=== PATIENT | female | born 1930 | race Caucasian/White ===

== ENCOUNTER 2017-03-14 09:31 | Inpatient (IN) | payer MEDICARE, BC ==
[2017-03-14] VITALS (8 sets, daily range): BP systolic 108–226; BP diastolic 60–104; PULSE 58–72; RESP 14–21; TEMP 97.9–98.1; O2SAT 96–98
[~2017-03-14] VITALS: Ht 157.5 cm; Wt 55.4 kg
--- NOTE | 2017-03-14 10:02 | PD ---
HPI Chief Complaint: Altered Mental Status Time Seen by Provider: 09:48 Travel History International Travel<30 days: No Contact w/Intl Traveler<30days: No Traveled to known affect area: No History of Present Illness HPI Patient is an 86-year-old female with history of atrial fibrillation, vascular disease, hypertension, presents to emergency room from assisted living facilities with complaints of altered mental status. As per assisted living facility, patient presented to the their facility last night, reports that she was alert and oriented x 3 at that time. Patient was found on the floor this morning, alert only to person. Patient at this time has no complaints, patient is alert only to person, she thinks that she is at a home and the year is 1716. Patient does not remember events of this morning, she cannot provide hpi to myself [facility] Past Medical History Narrative Medical Atrial fibrillation, vascular disease, hypertension Atrial Fibrillation: Yes Hypertension: Yes ?: Not Past Surgical History Surgical History: Unable to Obtain Social History Alcohol Use: No Tobacco Use: No Substance Use: No Allergies-Medications (Allergen,Severity, Reaction): Coded Allergies: Sulfa (Sulfonamide Antibiotics) (Verified Allergy, Unknown, 03/14/17) Reported Meds & Prescriptions Reported Meds & Active Scripts Active Reported Lisinopril 5 Mg Tab 5 Mg PO DAILY Zofran (Ondansetron HCl) 4 Mg Tab 4 Mg PO Q12HR PRN Zetia (Ezetimibe) 10 Mg Tab 10 Mg PO HS Tramadol (Tramadol HCl) 50 Mg Tab 50 Mg PO HS PRN Sucralfate 1 Gram Tab 1 Gm PO BID on empty stomach Sotalol (Sotalol HCl) 80 Mg Tab 80 Mg PO BID Simvastatin 80 Mg Tab 80 Mg PO HS Prilosec (Omeprazole Magnesium) 20 Mg Tab 40 Mg PO DAILY Plavix (Clopidogrel Bisulfate) 75 Mg Tab 75 Mg PO DAILY Melatonin 5 Mg Tab 3 Mg PO HS Levothyroxine (Levothyroxine Sodium) 50 Mcg Tab 50 Mcg PO BID Isosorbide Mononitrate 10 Mg Tab 10 Mg PO DAILY Take 2 doses 7 hours apart. Digoxin 0.125 Mg Tab 0.125 Mg PO DAILY Coumadin (Warfarin) 2.5 Mg Tab 2.5 Mg PO HS Review of Systems ROS Limitations: Altered Mental Status, Poor Historian, Other: (patient confused, alert only to person at this time) Physical Exam Exam Limitations: Altered Mental Status, Poor Historian Narrative GENERAL: Mild distress, patient pleasantly confused SKIN: Focused skin assessment warm/dry. HEAD: Atraumatic. Normocephalic. EYES: Pupils equal and round. No scleral icterus. No injection or drainage. ENT: No nasal bleeding or discharge. Mucous membranes pink and moist. NECK: Trachea midline. No JVD. No midline tenderness CARDIOVASCULAR: Regular rate and rhythm. No murmur appreciated. RESPIRATORY: No accessory muscle use. Clear to auscultation. Breath sounds equal bilaterally. GASTROINTESTINAL: Abdomen soft, non-tender, nondistended. Hepatic and splenic margins not palpable. MUSCULOSKELETAL: No obvious deformities. No clubbing. No cyanosis. No edema. NEUROLOGICAL: Awake and alert to person only. No obvious cranial nerve deficits. Motor grossly within normal limits. Normal speech. Data Data Last Documented VS Vital Signs Date Time Temp Pulse Resp B/P (MAP) Pulse Ox O2 Delivery O2 Flow Rate FiO2 03/14/17 09:47 Room Air 03/14/17 09:40 97.9 65 17 226/104 (144) 97 Orders Orders Electrocardiogram (03/14/17 09:54) Complete Blood Count With Diff (03/14/17 09:54) Comprehensive Metabolic Panel (03/14/17 09:54) Prothrombin Time / Inr (Pt) (03/14/17 09:54) Act Partial Throm Time (Ptt) (03/14/17 09:54) Troponin I (03/14/17 09:54) Urinalysis - C+S If Indicated (03/14/17 09:54) Chest, Single Ap (03/14/17 09:54) Ct Brain W/O Iv Contrast(Rout) (03/14/17 09:54) Blood Glucose (03/14/17 09:54) Ecg Monitoring (03/14/17 09:54) Iv Access Insert/Monitor (03/14/17 09:54) Cath For Specimen (03/14/17 09:54) Oximetry (03/14/17 09:54) B-Type Natriuretic Peptide (03/14/17 09:55) Urine Culture (03/14/17 10:20) Ckmb (Isoenzyme) Profile (03/14/17 10:05) Digoxin (03/14/17 10:05) Ceftriaxone Inj (Rocephin Inj) (03/14/17 12:00) Admit Order (Ed Use Only) (03/14/17 12:44) Labs Laboratory Tests Test 03/14/17 10:05 03/14/17 10:20 03/14/17 11:25 White Blood Count 6.8 TH/MM3 Red Blood Count 5.36 MIL/MM3 Hemoglobin 15.8 GM/DL Hematocrit 47.1 % Mean Corpuscular Volume 87.9 FL Mean Corpuscular Hemoglobin 29.5 PG Mean Corpuscular Hemoglobin Concent 33.6 % Red Cell Distribution Width 17.7 % Platelet Count 264 TH/MM3 Mean Platelet Volume 8.5 FL Neutrophils (%) (Auto) 60.5 % Lymphocytes (%) (Auto) 22.5 % Monocytes (%) (Auto) 14.1 % Eosinophils (%) (Auto) 1.6 % Basophils (%) (Auto) 1.3 % Neutrophils # (Auto) 4.1 TH/MM3 Lymphocytes # (Auto) 1.5 TH/MM3 Monocytes # (Auto) 1.0 TH/MM3 Eosinophils # (Auto) 0.1 TH/MM3 Basophils # (Auto) 0.1 TH/MM3 CBC Comment DIFF FINAL Differential Comment Prothrombin Time 32.5 SEC Prothromb Time International Ratio 2.8 RATIO Activated Partial Thromboplast Time 34.1 SEC B-Type Natriuretic Peptide 396 PG/ML Urine Color YELLOW Urine Turbidity HAZY Urine pH 5.5 Urine Specific [place] 1.016 Urine Protein 30 mg/dL Urine Glucose (UA) NEG mg/dL Urine Ketones TRACE mg/dL Urine Occult Blood SMALL Urine Nitrite NEG Urine Bilirubin NEG Urine Urobilinogen LESS THAN 2.0 MG/DL Urine Leukocyte Esterase LARGE Urine RBC 23 /hpf Urine WBC 91 /hpf Urine WBC Clumps FEW Urine Bacteria MANY /hpf Urine Hyaline Casts 1 /lpf Urine Mucus FEW /lpf Microscopic Urinalysis Comment CATH-CULTURE IND Blood Urea Nitrogen 24 MG/DL Creatinine 1.10 MG/DL Random Glucose 100 MG/DL Total Protein 7.1 GM/DL Albumin 3.4 GM/DL Calcium Level 10.5 MG/DL Alkaline Phosphatase 75 U/L Aspartate Amino Transf (AST/SGOT) 36 U/L Alanine Aminotransferase (ALT/SGPT) 20 U/L Total Bilirubin 1.3 MG/DL Sodium Level 141 MEQ/L Potassium Level 4.5 MEQ/L Chloride Level 108 MEQ/L Carbon Dioxide Level 23.7 MEQ/L Anion Gap 9 MEQ/L Estimat Glomerular Filtration Rate 47 ML/MIN Total Creatine Kinase 72 U/L Troponin I 0.08 NG/ML Digoxin Level 1.0 NG/ML MDM Medical Decision Making Medical Screen Exam Complete: Yes Emergency Medical Condition: Yes Medical Record Reviewed: Yes Interpretation(s) EKG at 1046: Paced at 64bpm Vital Signs Date Time Temp Pulse Resp B/P (MAP) Pulse Ox O2 Delivery O2 Flow Rate FiO2 03/14/17 09:47 Room Air 03/14/17 09:40 97.9 65 17 226/104 (144) 97 Differential Diagnosis Differential includes intracranial hemorrhage, CVA, TIA, ACS, arrhythmia, infection including UTI, electrolyte abnormality Narrative Course 86-year-old female who was found on the floor this morning by assisted living facility with altered mental status. Patient was alert and oriented 3 last night, patient currently alert only to person. Patient with no complaints at this time and has no recollection of this morning. Patient was placed on a school lunch monitor upon arrival to the emergency room. An IV line was established. CBC, CMP, cardiac enzymes, coags were ordered. A straight catheter urinalysis was ordered as well. CT of the head was ordered as patient was found on the floor, she currently is on Coumadin as she has history of atrial fibrillation. A digoxin level ordered as well. Patient's daughter is on route to the emergency room, will obtain more information upon her arrival Patient's family has arrived to the emergency room, reports the patient was acting a little altered last night, reports that every time this happens, she is diagnosed with a UTI. Reports concern for a uti at this time. Reports the patient was recently hospitalized as her INR was very low, she was then transferred to rehabilitation facility for strengthening, she is currently living in assisted living facility starting yesterday. Vital Signs Date Time Temp Pulse Resp B/P (MAP) Pulse Ox O2 Delivery O2 Flow Rate FiO2 03/14/17 09:47 Room Air 03/14/17 09:40 97.9 65 17 226/104 (144) 97 Laboratory Tests Test 03/14/17 10:05 03/14/17 10:20 03/14/17 11:25 White Blood Count 6.8 TH/MM3 (4.0-11.0) Red Blood Count 5.36 MIL/MM3 (4.00-5.30) Hemoglobin 15.8 GM/DL (11.6-15.3) Hematocrit 47.1 % (35.0-46.0) Mean Corpuscular Volume 87.9 FL (80.0-100.0) Mean Corpuscular Hemoglobin 29.5 PG (27.0-34.0) Mean Corpuscular Hemoglobin Concent 33.6 % (32.0-36.0) Red Cell Distribution Width 17.7 % (11.6-17.2) Platelet Count 264 TH/MM3 (150-450) Mean Platelet Volume 8.5 FL (7.0-11.0) Neutrophils (%) (Auto) 60.5 % (16.0-70.0) Lymphocytes (%) (Auto) 22.5 % (9.0-44.0) Monocytes (%) (Auto) 14.1 % (0.0-8.0) Eosinophils (%) (Auto) 1.6 % (0.0-4.0) Basophils (%) (Auto) 1.3 % (0.0-2.0) Neutrophils # (Auto) 4.1 TH/MM3 (1.8-7.7) Lymphocytes # (Auto) 1.5 TH/MM3 (1.0-4.8) Monocytes # (Auto) 1.0 TH/MM3 (0-0.9) Eosinophils # (Auto) 0.1 TH/MM3 (0-0.4) Basophils # (Auto) 0.1 TH/MM3 (0-0.2) CBC Comment DIFF FINAL Differential Comment Prothrombin Time 32.5 SEC (9.8-11.6) Prothromb Time International Ratio 2.8 RATIO Activated Partial Thromboplast Time 34.1 SEC (24.3-30.1) B-Type Natriuretic Peptide 396 PG/ML (0-100) Urine Color YELLOW (YELLW/STRAW) Urine Turbidity HAZY (CLEAR) Urine pH 5.5 (5.0-8.5) Urine Specific [place] 1.016 (1.002-1.035) Urine Protein 30 mg/dL (NEG-TRACE) Urine Glucose (UA) NEG mg/dL (NEG) Urine Ketones TRACE mg/dL (NEG) Urine Occult Blood SMALL (NEG) Urine Nitrite NEG (NEG) Urine Bilirubin NEG (NEG) Urine Urobilinogen LESS THAN 2.0 MG/DL (LESS Urine Leukocyte Esterase LARGE (NEG) Urine RBC 23 /hpf (0-3) Urine WBC 91 /hpf (0-5) Urine WBC Clumps FEW (NONE) Urine Bacteria MANY /hpf (NONE) Urine Hyaline Casts 1 /lpf (RARE) Urine Mucus FEW /lpf (OCC) Microscopic Urinalysis Comment CATH-CULTURE IND Blood Urea Nitrogen 24 MG/DL (7-18) Creatinine 1.10 MG/DL (0.50-1.00) Random Glucose 100 MG/DL (74-106) Albumin 3.4 GM/DL (3.4-5.0) Calcium Level 10.5 MG/DL (8.5-10.1) Aspartate Amino Transf (AST/SGOT) 36 U/L (15-37) Alanine Aminotransferase (ALT/SGPT) 20 U/L (10-53) Sodium Level 141 MEQ/L (136-145) Potassium Level 4.5 MEQ/L (3.5-5.1) Chloride Level 108 MEQ/L (98-107) Carbon Dioxide Level 23.7 MEQ/L (21.0-32.0) Anion Gap 9 MEQ/L (5-15) Estimat Glomerular Filtration Rate 47 ML/MIN (>89) Last Impressions Head CT 03/14/1723 Signed Impressions: Service Date/Time: February 10:23 - CONCLUSION: 1. No acute intracranial hemorrhage. 2. Bilateral cortical atrophy and chronic white matter changes characteristic for patient's age. Arturo Landeros MD Chest X-Ray 03/14/1702 Signed Impressions: Service Date/Time: February 10:07 - CONCLUSION: 1. No acute pulmonary infiltrates. 2. Moderate compensated cardiomegaly. Arturo Landeros MD Patient with encephalopathy secondary to UTI. Patient was given dose of IV Rocephin. Plan to obs on medicine service Case reviewed with Dr. Drake who accepts pt to his service Diagnosis Primary Impression: Encephalopathy Additional Impressions: UTI (urinary tract infection) Elevated troponin Admitting Information Admitting Physician Requests: Observation Alyse Mcgee DO Mar 14, 2017 10:02
--- NOTE | 2017-03-14 10:14 | RADRPT ---
EXAM DATE/TIME: 03/14/2017 10:07 [facility] COMPARISON: No previous studies available for comparison. INDICATIONS : Short of breath. MEDICAL HISTORY : Unobtainable. SURGICAL HISTORY : Pacemaker. ENCOUNTER: Initial ACUITY: 1 day PAIN SCORE: Non-responsive. LOCATION: Bilateral chest FINDINGS: A single view of the chest demonstrates the lungs to be symmetrically aerated without evidence of mas s, infiltrate or effusion. The heart size is moderately enlarged. There is a pacemaker overlying the left chest.. Osseous structures are intact. CONCLUSION: 1. No acute pulmonary infiltrates. 2. Moderate compensated cardiomegaly. Arturo Landeros MD on March 14, 2017 at 10:12 Board Certified Radiologist. This report was verified electronically.
[2017-03-14 10:44] LABS: AUTOMATED NEUTROPHIL # 4.1 TH/MM3 (1.8-7.7); BASOPHIL # 0.1 TH/MM3 (0-0.2); BASOPHIL % 1.3 % (0.0-2.0); EOSINOPHIL # 0.1 TH/MM3 (0-0.4); EOSINOPHIL % 1.6 % (0.0-4.0); HEMATOCRIT 47.1 % (35.0-46.0); HEMO FLAGS DIFF FINAL; LYMPH % 22.5 % (9.0-44.0); LYMPHOCYTE # 1.5 TH/MM3 (1.0-4.8); MEAN CELL VOLUME 87.9 FL (80.0-100.0); MEAN CORPUSCULAR HEMOGLOBIN 29.5 PG (27.0-34.0); MEAN CORPUSCULAR HGB CONC 33.6 % (32.0-36.0); MONO % 14.1 % (0.0-8.0); NEUT % 60.5 % (16.0-70.0); PLATELET COUNT 264 TH/MM3 (150-450); RED BLOOD COUNT 5.36 MIL/MM3 (4.00-5.30); RED CELL DISTRIBUTION WIDTH 17.7 % (11.6-17.2); WHITE BLOOD COUNT 6.8 TH/MM3 (4.0-11.0)
[2017-03-14 10:57] LABS: APTT (PATIENT) 34.1 SEC (24.3-30.1); INTERNATIONAL NORMALIZED RATIO 2.8 RATIO; PROTHROMBIN TIME - PATIENT 32.5 SEC (9.8-11.6)
--- NOTE | 2017-03-14 10:58 | RADRPT ---
EXAM DATE/TIME: 03/14/2017 10:23 [facility] COMPARISON: No previous studies available for comparison. INDICATIONS : Altered mental status, found on floor. RADIATION DOSE: 56.35 CTDIvol (mGy) MEDICAL HISTORY : Cardiovascular disease. Hypertension. SURGICAL HISTORY : None. ENCOUNTER: Initial ACUITY: 1 day PAIN SCALE: 1/10 LOCATION: cranial TECHNIQUE: Multiple contiguous axial images were obtained of the head. Using automated exposure control and adj ustment of the mA and/or kV according to patient size, radiation dose was kept as low as reasonably a chievable to obtain optimal diagnostic quality images. DICOM format image data is available electro nically for review and comparison. FINDINGS: CEREBRUM: The ventricles are normal for age. Bilateral cortical atrophy and chronic white matter changes. No e vidence of midline shift, mass lesion, hemorrhage or acute infarction. No extra-axial fluid collecti ons are seen. POSTERIOR FOSSA: The cerebellum and brainstem are intact. The 4th ventricle is midline. The cerebellopontine angle i s unremarkable. EXTRACRANIAL: The visualized portion of the orbits is intact. SKULL: The calvaria is intact. No evidence of skull fracture. CONCLUSION: 1. No acute intracranial hemorrhage. 2. Bilateral cortical atrophy and chronic white matter changes characteristic for patient's age. Arturo Landeros MD on March 14, 2017 at 10:55 Board Certified Radiologist. This report was verified electronically.
[2017-03-14 11:01] LABS: BACTERIA, URINE MANY /hpf; BLOOD, URINE SMALL (NEG); GLUCOSE,URINE NEG (NEG); HYALINE CAST, URINE 1 /lpf (RARE); KETONE, URINE TRACE mg/dL (NEG); MUCUS URINE FEW /lpf (OCC); NITRITE,URINE NEG (NEG); PH, URINE 5.5 (5.0-8.5); URINE COLOR YELLOW (YELLW/STRAW)
[2017-03-14 11:02] LABS: COMMENT (UR) CATH-CULTURE IND; CULTURE IF INDICATED CATH CULTURE IND
[2017-03-14] MEDS ORDERED: cefTRIAXone INJ 1,000 MG in SODIUM CHLORIDE 0.9% INJ 100 ML IV ONE (12:00)
[2017-03-14 12:31] LABS: ALT (GPT) 20 U/L (10-53); ANION GAP 9 MEQ/L (5-15); AST (GOT) 36 U/L (15-37); BICARBONATE 23.7 MEQ/L (21.0-32.0); BLOOD UREA NITROGEN 24 MG/DL (7-18); CHLORIDE 108 MEQ/L (98-107); GLOMERULAR FILTRATION RATE 47 ML/MIN (>89); POTASSIUM 4.5 MEQ/L (3.5-5.1); SODIUM (NA) 141 MEQ/L (136-145)
[2017-03-14 12:45] LABS: ALKALINE PHOSPHATASE 75 U/L (45-117); TOTAL BILIRUBIN ADULT 1.3 MG/DL (0.2-1.0)
[2017-03-14 12:51] LABS: CREATINE KINASE 72 U/L (26-192)
--- NOTE | 2017-03-14 12:53 | HHI.HP ---
[facility] Service [facility] Primary Care Physician Unknown Admission Diagnosis Metabolic encephopathy secondary to UTI Diagnoses: (1) Dehydration Diagnosis: Principal (2) Encephalopathy Diagnosis: Principal (3) UTI (urinary tract infection) Diagnosis: Principal Chief Complaint: altered mental status Travel History International Travel<30 Days: No Contact w/Intl Traveler <30 Da: No Traveled to Known Affected Are: No History of Present Illness patient is a 86 y/o female with history of atrial fibrillation, hypertension and vascular disease, who was sent to ER from assisted living facility for altered metal status. patient is not a good historian and most of the information was obtained from the ER documents. per the report she was fully oriented last night however reportedly she had a fall earlier today. she was oriented to person at the time. at the time of my evaluation she was resting comfortably with no distress. she denies any pain or headache.she says that she thinks she's in the doctor's office. she's not oriented to the time. Review of Systems ROS Limitations: Poor Historian Past Family Social History Past Medical History atrial fibrillation PVD hypertension dyslipidemia hypothyroidism Past Surgical History pacemaker insertion Reported Medications digoxin plavix digoxin zetia levothyroxine sotalol simvastatin sucralfate omeprazole imdur lisinopril Allergies: Coded Allergies: Sulfa (Sulfonamide Antibiotics) (Verified Allergy, Unknown, 03/14/17) Active Ordered Medications Current Medications Ceftriaxone Sodium 1000 mg/ Sodium Chloride 100 ml @ 200 mls/hr ONCE ONCE IV Last administered on 03/14/17t 12:14; Start 03/14/17 at 12:00; Stop 03/14/17 at 12:29; Status DC Family History could not be obtained. Social History [facility] resident. Physical Exam Vital Signs Vital Signs Date Time Temp Pulse Resp B/P (MAP) Pulse Ox O2 Delivery O2 Flow Rate FiO2 03/14/17 09:47 Room Air 03/14/17 09:40 97.9 65 17 226/104 (144) 97 Physical Exam GENERAL: elderly female, in no apparent distress. SKIN: No rashes, ecchymoses or lesions. Cool and dry. HEAD: Atraumatic. Normocephalic. No temporal or scalp tenderness. EYES: Pupils equal round and reactive. Extraocular motions intact. No scleral icterus. No injection or drainage. ENT: Nose without bleeding, purulent drainage or septal hematoma. Throat without erythema, tonsillar hypertrophy or exudate. Uvula midline. Airway patent. NECK: Trachea midline. No JVD or lymphadenopathy. Supple, nontender, no meningeal signs. CARDIOVASCULAR: Regular rate and rhythm without murmurs, gallops, or rubs. RESPIRATORY: Clear to auscultation. Breath sounds equal bilaterally. No wheezes , rales, or rhonchi. GASTROINTESTINAL: Abdomen soft, non-tender, nondistended. No hepato-splenomegaly , or palpable masses. No guarding. MUSCULOSKELETAL: Extremities without clubbing, cyanosis, or edema. No joint tenderness, effusion, or edema noted. No calf tenderness. Negative Homans sign bilaterally. NEUROLOGICAL: Awake and alert. oriented to person - not oriented to place or time. Laboratory Laboratory Tests Test 03/14/17 10:05 03/14/17 10:20 03/14/17 11:25 White Blood Count 6.8 Red Blood Count 5.36 Hemoglobin 15.8 Hematocrit 47.1 Mean Corpuscular Volume 87.9 Mean Corpuscular Hemoglobin 29.5 Mean Corpuscular Hemoglobin Concent 33.6 Red Cell Distribution Width 17.7 Platelet Count 264 Mean Platelet Volume 8.5 Neutrophils (%) (Auto) 60.5 Lymphocytes (%) (Auto) 22.5 Monocytes (%) (Auto) 14.1 Eosinophils (%) (Auto) 1.6 Basophils (%) (Auto) 1.3 Neutrophils # (Auto) 4.1 Lymphocytes # (Auto) 1.5 Monocytes # (Auto) 1.0 Eosinophils # (Auto) 0.1 Basophils # (Auto) 0.1 CBC Comment DIFF FINAL Differential Comment Prothrombin Time 32.5 Prothromb Time International Ratio 2.8 Activated Partial Thromboplast Time 34.1 B-Type Natriuretic Peptide 396 Urine Color YELLOW Urine Turbidity HAZY Urine pH 5.5 Urine Specific [place] 1.016 Urine Protein 30 Urine Glucose (UA) NEG Urine Ketones TRACE Urine Occult Blood SMALL Urine Nitrite NEG Urine Bilirubin NEG Urine Urobilinogen LESS THAN 2.0 Urine Leukocyte Esterase LARGE Urine RBC 23 Urine WBC 91 Urine WBC Clumps FEW Urine Bacteria MANY Urine Hyaline Casts 1 Urine Mucus FEW Microscopic Urinalysis Comment CATH-CULTURE IND Blood Urea Nitrogen 24 Creatinine 1.10 Random Glucose 100 Albumin 3.4 Calcium Level 10.5 Aspartate Amino Transf (AST/SGOT) 36 Alanine Aminotransferase (ALT/SGPT) 20 Sodium Level 141 Potassium Level 4.5 Chloride Level 108 Carbon Dioxide Level 23.7 Anion Gap 9 Estimat Glomerular Filtration Rate 47 Date/Time Source Procedure Growth Status 03/14/17 10:20 Urine Catheterized Urine Urine Culture Pending Received Result Diagram: 03/14/17 1005 03/14/17 1005 Imaging Last Impressions Head CT 03/14/17 0954 Signed Impressions: Service Date/Time: February 10:23 - CONCLUSION: 1. No acute intracranial hemorrhage. 2. Bilateral cortical atrophy and chronic white matter changes characteristic for patient's age. Arturo Landeros MD Chest X-Ray 03/14/17953 Signed Impressions: Service Date/Time: February 10:07 - CONCLUSION: 1. No acute pulmonary infiltrates. 2. Moderate compensated cardiomegaly. Arturo Landeros MD EKG; pacer rhythm Caprini VTE Risk Assessment Caprini VTE Risk Assessment: Mod/High Risk (score >= 2) Caprini Risk Assessment Model Point Value = 1 Point Value = 2 Point Value = 3 Point Value = 5 Age 41-60 Minor surgery BMI > 25 kg/m2 Swollen legs Varicose veins or History of unexplained or recurrent spontaneous Oral contraceptives or hormone replacement Sepsis (< 1 month) Serious lung disease, including pneumonia (< 1 month) Abnormal pulmonary function Acute myocardial infarction Congestive heart failure (< 1 month) History of inflammatory bowel disease Medical patient at bed rest Age 61-74 Arthroscopic surgery Major open surgery (> 45 min) Laparoscopic surgery (> 45 min) Malignancy Confined to bed (> 72 hours) Immobilizing plaster cast Central venous access Age >= 75 History of VTE Family history of VTE Factor V Leiden Prothrombin 43332A Lupus anticoagulant Anticardiolipin antibodies Elevated serum homocysteine Heparin-induced thrombocytopenia Other congenital or acquired thrombophilia Stroke (< 1 month) Elective arthroplasty Hip, pelvis, or leg fracture Acute spinal cord injury (< 1 month) Prophylaxis Regimen Total Risk Factor Score Risk Level Prophylaxis Regimen 0-1 Low Early ambulation 2 Moderate Order ONE of the following: *Sequential Compression Device (SCD) *Heparin 5000 units SQ BID 3-4 Higher Order ONE of the following medications: *Heparin 5000 units SQ TID *Enoxaparin/Lovenox 40 mg SQ daily (WT < 150 kg, CrCl > 30 mL/min) *Enoxaparin/Lovenox 30 mg SQ daily (WT < 150 kg, CrCl > 10-29 mL/min) *Enoxaparin/Lovenox 30 mg SQ BID (WT < 150 kg, CrCl > 30 mL/min) AND/OR *Sequential Compression Device (SCD) 5 or more Highest Order ONE of the following medications: *Heparin 5000 units SQ TID (Preferred with Epidurals) *Enoxaparin/Lovenox 40 mg SQ daily (WT < 150 kg, CrCl > 30 mL/min) *Enoxaparin/Lovenox 30 mg SQ daily (WT < 150 kg, CrCl > 10-29 mL/min) *Enoxaparin/Lovenox 30 mg SQ BID (WT < 150 kg, CrCl > 30 mL/min) AND *Sequential Compression Device (SCD) Assessment and Plan Assessment and Plan A/P - acute encephalopathy- likely due to UTI and dehydration CT head with no acute abnormality. continue with neuro-checks and fall precautions- start on IV antibiotic and follow the UC start on gentle IV hydration- continue to monitor -dehydration / with mild hypercalcemia and polycythemia; start on IV fluid- repeat BMP in am -mild elevation of troponin- likely due to fall/ renal insufficiency and elevated BP; denies chest pain; will trend the cardiac enzymes resume home meds; lisinopril, plavix , nitrate and statin. -renal insufficiency with unknown duration- start IV fluid and monitor -atrial fibrillation -s/p pacemaker insertion; resume Sotalol, Digoxin and couamdin-will monitor -dyslipidemia/PVD/ hypertension/ hypothyroidism; resume home meds -DVT prophylaxis ; on Coumadin; will monitor PT/INR- pharmacy will be consulted for coumadin dosing. -consult PT Discussed Condition With ER physician, the patient and RN. Problem Qualifiers (1) UTI (urinary tract infection): Gold Chino MD Mar 14, 2017 12:53
[2017-03-14] MEDS ORDERED: PRIL20TA2 PO (13:07)
[2017-03-14] MEDS ORDERED: SOTA80TA PO (13:07)
[2017-03-14] MEDS ORDERED: DIGO0.12 PO (13:07)
[2017-03-14] MEDS ORDERED: SIMV80TA PO (13:07)
[2017-03-14] MEDS ORDERED: ZOFR4TAB PO (13:07)
[2017-03-14] MEDS ORDERED: ZETI10TA5 PO (13:07)
[2017-03-14] MEDS ORDERED: TRAM50TA PO (13:07)
[2017-03-14] MEDS ORDERED: COUM2.5T PO (13:07)
[2017-03-14] MEDS ORDERED: PLAV75TA29 PO (13:07)
[2017-03-14] MEDS ORDERED: SUCR1TAB PO (13:07)
[2017-03-14] MEDS ORDERED: ISOS10TA3 PO (13:07)
[2017-03-14] MEDS ORDERED: LEVO50TA4 PO (13:07)
[2017-03-14] MEDS ORDERED: LISI-519 PO (13:07)
[2017-03-14] MEDS ORDERED: MELA5TAB15 PO (13:07)
[2017-03-14] MEDS ORDERED: ONDANSETRON HCL 4 MG/2 ML VIAL IV PUSH PRN (13:15)
[2017-03-14] MEDS ORDERED: SODIUM CHLOR 0.9% 1000 ML INJ 1,000 ML IV ONE (13:15)
[2017-03-14] MEDS ORDERED: ACETAMINOPHEN 325 MG TAB PO PRN (13:15)
[2017-03-14] MEDS ORDERED: ENALAPRILAT 1.25 MG/ML VIAL IV PUSH PRN (14:15)
[2017-03-14] MEDS ORDERED: PILL SPLITTER OTHER PRN (15:15)
[2017-03-14] MEDS: LISINOPRIL 5 MG TAB PO SCH (17:11)
[2017-03-14] MEDS ORDERED: WARFARIN SOD 2.5 MG TAB PO SCH (21:00)
[2017-03-14] MEDS: PRAVASTATIN SOD 80 MG TAB PO SCH (21:37)
[2017-03-14] MEDS: EZETIMIBE 10 MG TAB PO SCH (21:37)
[2017-03-14] MEDS: SOTALOL HCL 80 MG TAB PO SCH (21:37)
[2017-03-14] MEDS: SUCRALFATE 1 GM TAB PO SCH (21:37)
[2017-03-15] VITALS (7 sets, daily range): BP systolic 94–160; BP diastolic 60–89; PULSE 60–79; RESP 16–20; TEMP 97.5–98.1; O2SAT 94–97
[2017-03-15] MEDS: LEVOTHYROXINE SODIUM 50 MCG TAB PO SCH ×2 (05:34→16:40)
[2017-03-15 08:06] LABS: AUTOMATED NEUTROPHIL # 3.8 TH/MM3 (1.8-7.7); BASOPHIL # 0.1 TH/MM3 (0-0.2); BASOPHIL % 1.3 % (0.0-2.0); EOSINOPHIL # 0.1 TH/MM3 (0-0.4); EOSINOPHIL % 2.4 % (0.0-4.0); HEMATOCRIT 44.3 % (35.0-46.0); HEMO FLAGS DIFF FINAL; LYMPH % 19.1 % (9.0-44.0); LYMPHOCYTE # 1.2 TH/MM3 (1.0-4.8); MEAN CELL VOLUME 87.4 FL (80.0-100.0); MEAN CORPUSCULAR HEMOGLOBIN 29.3 PG (27.0-34.0); MEAN CORPUSCULAR HGB CONC 33.5 % (32.0-36.0); MONO % 16.2 % (0.0-8.0); PLATELET COUNT 237 TH/MM3 (150-450); RED BLOOD COUNT 5.07 MIL/MM3 (4.00-5.30); RED CELL DISTRIBUTION WIDTH 17.4 % (11.6-17.2); WHITE BLOOD COUNT 6.3 TH/MM3 (4.0-11.0)
[2017-03-15 08:12] LABS: INTERNATIONAL NORMALIZED RATIO 2.9 RATIO; PROTHROMBIN TIME - PATIENT 33.6 SEC (9.8-11.6)
[2017-03-15 08:21] LABS: BICARBONATE 24.4 MEQ/L (21.0-32.0); POTASSIUM 3.6 MEQ/L (3.5-5.1)
[2017-03-15] MEDS ORDERED: LISINOPRIL 5 MG TAB PO SCH (09:00)
[2017-03-15] MEDS: SUCRALFATE 1 GM TAB PO SCH ×2 (09:20→21:28)
[2017-03-15] MEDS: PANTOPRAZOLE SOD 40 MG DELAYED RELEASE TAB PO SCH (09:20)
[2017-03-15] MEDS: LISINOPRIL 5 MG TAB PO SCH (09:20)
[2017-03-15] MEDS: CLOPIDOGREL 75 MG TAB PO SCH (09:20)
[2017-03-15] MEDS: SOTALOL HCL 80 MG TAB PO SCH ×2 (09:21→21:28)
[2017-03-15] MEDS: ISOSORBIDE MONONITRATE 20 MG TAB PO SCH (09:21)
[2017-03-15] MEDS: DIGOXIN 0.125 MG TAB PO SCH (09:21)
--- NOTE | 2017-03-15 09:47 | HHI.PR ---
Subjective Remarks in no acute distress. awake, alert- mental status has somewhat improved- however still not fully oriented. remains afebrile. d/w the RN and case management at the bedside. Objective Vitals Vital Signs Date Time Temp Pulse Resp B/P (MAP) Pulse Ox O2 Delivery O2 Flow Rate FiO2 03/15/17 08:00 97.5 73 18 130/67 (88) 97 03/15/17 04:00 97.5 64 17 114/79 (91) 97 03/15/17 00:00 97.5 79 18 160/89 (112) 96 03/14/17 20:24 98.1 58 16 108/60 (76) 98 03/14/17 18:17 72 135/63 (87) 03/14/17 17:34 180/90 (120) 03/14/17 17:01 98.1 69 20 200/98 (132) 97 03/14/17 16:21 03/14/17 15:35 71 17 177/85 (115) 96 Room Air 03/14/17 15:16 71 21 177/84 (115) 96 Room Air 03/14/17 13:54 69 14 188/97 (127) 98 Room Air 03/14/17 09:47 Room Air I/O 03/14/17 03/14/17 03/14/17 03/15/17 03/15/17 03/15/17 07:00 15:00 23:00 07:00 15:00 23:00 Intake Total 100 ml 200 ml Balance 100 ml 200 ml Intake Oral 200 ml IV Total 100 ml Result Diagram: 03/15/1761803/15/17618 Imaging Last Impressions Head CT 03/14/17953 Signed Impressions: Service Date/Time: February 10:23 - CONCLUSION: 1. No acute intracranial hemorrhage. 2. Bilateral cortical atrophy and chronic white matter changes characteristic for patient's age. Arturo Landeros MD Chest X-Ray 03/14/17953 Signed Impressions: Service Date/Time: February 10:07 - CONCLUSION: 1. No acute pulmonary infiltrates. 2. Moderate compensated cardiomegaly. Arturo Landeros MD Objective Remarks GENERAL:elderly female, in no apparent distress. CARDIOVASCULAR: Regular rate and regular rhythm without murmurs, gallops, or rubs. RESPIRATORY: Clear to auscultation. Breath sounds equal bilaterally. No wheezes , rales, or rhonchi. GASTROINTESTINAL: Abdomen soft, non-tender, nondistended. Normal, active bowel sounds MUSCULOSKELETAL: Extremities without clubbing, cyanosis, or edema. NEURO: awake and alert- oriented to person,knows that she's in the hospital- not oriented to the time. Medications and IVs Current Medications Ceftriaxone Sodium 1000 mg/ Sodium Chloride 100 ml @ 200 mls/hr ONCE ONCE IV Last administered on 03/14/17 12:14; Start 03/14/17 at 12:00; Stop 03/14/17 at 12:29; Status DC Pharmacy Profile Note 0 ml @ 0 mls/hr UNSCH OTHER ; Start 03/14/17 at 13:15 Ceftriaxone Sodium 1000 mg/ Sodium Chloride 100 ml @ 200 mls/hr Q24H IV ; Start 03/15/17 at 12:00 Ondansetron HCl (Zofran Inj) 4 mg Q8HR PRN IV PUSH NAUSEA; Start 03/14/17 at 13:15 Acetaminophen (Tylenol) 650 mg Q4H PRN PO FEVER/PAIN/ HEADACHE; Start at 13:15 Sodium Chloride 1,000 ml @ 60 mls/hr [id number] ONCE IV ; Start 03/14/17 at 13:15 ; Stop 03/15/17 at 05:54; Status DC Clopidogrel Bisulfate (Plavix) 75 mg DAILY PO Last administered on 03/15/17 09:20; Start 03/15/17 at 09:00 Digoxin (Lanoxin) 0.125 mg DAILY PO Last administered on 03/15/17 09:21; Start 03/15/17 at 09:00 EZETIMIBE (Zetia) 10 mg HS PO Last administered on 03/14/17 21:37; Start at 21:00 Isosorbide Mononitrate (Ismo) 10 mg DAILY PO Last administered on 03/15/17 09 :21; Start 03/15/17 at 09:00 Levothyroxine Sodium (Synthroid) 50 mcg BIDAC PO Last administered on 05:34; Start 03/15/17 at 07:00 Lisinopril (Prinivil) 5 mg DAILY PO ; Start 03/15/17 at 09:00; Stop 03/15/17 at 09:00; Status DC Sotalol HCl (Betapace) 80 mg BID PO Last administered on 03/15/17 09:21; Start 03/14/17 at 21:00 Sucralfate (Carafate) 1 gm BID PO Last administered on 03/15/17 09:20; Start 03/14/17 at 21:00 Warfarin Sodium (Coumadin) 2.5 mg HS PO Last administered on 03/14/17 21:37; Start 03/14/17 at 21:00 Pantoprazole Sodium (Protonix) 40 mg DAILY PO Last administered on 03/15/17 09:20; Start 03/15/17 at 09:00 Pravastatin Sodium (Pravachol) 80 mg HS PO Last administered on 03/14/17 21: 37; Start 03/14/17 at 21:00 Lisinopril (Prinivil) 5 mg DAILY PO Last administered on 03/15/17 09:20; Start 03/14/17 at 14:15 Enalaprilat (Vasotec Inj) 1.25 mg Q8H PRN IV PUSH SBP> OR = 180, DBP> OR = 100 Last administered on 03/14/17 15:15; Start 03/14/17 at 14:15 Miscellaneous (Pill Splitter) 1 ea UNSCH PRN OTHER SEE LABEL COMMENTS; Start 03/14/17 at 15:15 Patient Medication Teaching (Coumadin Booklet) 1 ONCE ONCE .XX Last administered on 03/14/17 21:38; Start 03/14/17 at 21:00; Stop 03/14/17 at 21 :01; Status DC A/P Problem List: (1) Dehydration ICD Code: E86.0 - Dehydration (2) Encephalopathy ICD Code: G93.40 - Encephalopathy, unspecified Status: Acute (3) UTI (urinary tract infection) ICD Code: N39.0 - Urinary tract infection, site not specified Status: Acute Assessment and Plan A/P - acute encephalopathy- likely due to UTI and dehydration CT head with no acute abnormality. continue with neuro-checks and fall precautions- continue IV antibiotic and follow the UC continue IV hydration- continue to monitor -dehydration / with mild hypercalcemia and polycythemia; started on IV fluid- repeat BMP in am -mild elevation of troponin- likely due to fall/ renal insufficiency and elevated BP; denies chest pain; trend stable. resumed home meds; lisinopril, plavix , nitrate and statin. -renal insufficiency with unknown duration- continue IV fluid and monitor -atrial fibrillation -s/p pacemaker insertion; resumed Sotalol, Digoxin and couamdin-will monitor -dyslipidemia/PVD/ hypertension/ hypothyroidism; resumed home meds -DVT prophylaxis ; on Coumadin; will monitor PT/INR- pharmacy consulted for coumadin dosing. -consulted PT Discharge Planning dc planning within the next 24-48 hrs- pending clinical course, UC and PT assessment. Problem Qualifiers (1) UTI (urinary tract infection): Gold Chino MD Mar 15, 2017 09:47
[2017-03-15] MEDS ORDERED: SODIUM CHLOR 0.9% 1000 ML INJ 1,000 ML IV ONE (10:00)
[2017-03-15] MEDS: cefTRIAXone INJ 1,000 MG in SODIUM CHLORIDE 0.9% INJ 100 ML IV SCH (11:02)
[2017-03-15] MEDS: EZETIMIBE 10 MG TAB PO SCH (21:28)
[2017-03-15] MEDS: PRAVASTATIN SOD 80 MG TAB PO SCH (21:28)
--- NOTE | 2017-03-15 22:02 | EKG ---
Date Performed: 03/14/2017 Time Performed: 16:07:02 PTAGE: 86 years EKG: ATRIAL FIBRILLATION ELECTRONIC VENTRICULAR PACEMAKER INCOMPLETE RIGHT BUNDLE BRANCH BLOCK ABNORMAL ECG NO PREVIOUS TRACING DOCTOR: Handy Johnson Interpretating Date/Time 03/15/2017 21:36:30
--- NOTE | 2017-03-15 22:03 | EKG ---
Date Performed: 03/14/2017 Time Performed: 10:46:40 PTAGE: 86 years EKG: ATRIAL FIBRILLATION ELECTRONIC VENTRICULAR PACEMAKER ABNORMAL RHYTHM ECG NO PREVIOUS TRACING DOCTOR: Handy Johnson Interpretating Date/Time 03/15/2017 21:44:24
[2017-03-16 05:30] VITALS: BP 106/68; PULSE 78; RESP 18; TEMP 98; O2SAT 97
[2017-03-16 05:56] LABS: BICARBONATE 22.2 MEQ/L (21.0-32.0); POTASSIUM 3.4 MEQ/L (3.5-5.1)
[2017-03-16 06:01] LABS: INTERNATIONAL NORMALIZED RATIO 2.5 RATIO; PROTHROMBIN TIME - PATIENT 28.5 SEC (9.8-11.6)
[2017-03-16] MEDS: LEVOTHYROXINE SODIUM 50 MCG TAB PO SCH ×2 (06:26→16:29)
[2017-03-16 07:59] VITALS: BP 135/74; PULSE 64; RESP 22; TEMP 97.6; O2SAT 97
[2017-03-16] MEDS: LISINOPRIL 5 MG TAB PO SCH (10:15)
[2017-03-16] MEDS: ISOSORBIDE MONONITRATE 20 MG TAB PO SCH (10:19)
[2017-03-16] MEDS: SUCRALFATE 1 GM TAB PO SCH ×2 (10:19→22:00)
[2017-03-16] MEDS: PANTOPRAZOLE SOD 40 MG DELAYED RELEASE TAB PO SCH (10:20)
[2017-03-16] MEDS: SOTALOL HCL 80 MG TAB PO SCH ×2 (10:20→22:00)
[2017-03-16] MEDS: CLOPIDOGREL 75 MG TAB PO SCH (10:20)
[2017-03-16] MEDS: DIGOXIN 0.125 MG TAB PO SCH (10:31)
[2017-03-16 11:29] VITALS: BP 121/80; PULSE 61; RESP 22; TEMP 97.5; O2SAT 96
--- NOTE | 2017-03-16 12:33 | HHI.PR ---
Subjective Remarks in no acute distress. denies pain. afebrile. still confused. d/w the RN. Objective Vitals Vital Signs Date Time Temp Pulse Resp B/P (MAP) Pulse Ox O2 Delivery O2 Flow Rate FiO2 03/16/17 11:29 97.5 61 22 121/80 (94) 96 03/16/17 07:59 97.6 64 22 135/74 (94) 97 03/16/17 05:30 98.0 78 18 106/68 (81) 97 03/15/17 23:56 97.9 60 18 111/69 (83) 95 03/15/17 21:32 98.1 60 20 121/76 (91) 97 03/15/17 16:00 97.5 71 16 94/62 (73) 95 I/O 03/15/17 03/15/17 03/15/17 03/16/17 03/16/17 03/16/17 07:00 15:00 23:00 07:00 15:00 23:00 Intake Total 200 ml Balance 200 ml Intake Oral 200 ml # Voids 1 Result Diagram: 03/15/17 0619 03/16/17 0455 Imaging Last Impressions Head CT 03/14/17 0954 Signed Impressions: Service Date/Time: February 10:23 - CONCLUSION: 1. No acute intracranial hemorrhage. 2. Bilateral cortical atrophy and chronic white matter changes characteristic for patient's age. Arturo Landeros MD Chest X-Ray 03/14/17 0981 Signed Impressions: Service Date/Time: February 10:07 - CONCLUSION: 1. No acute pulmonary infiltrates. 2. Moderate compensated cardiomegaly. Arturo Landeros MD Objective Remarks GENERAL:elderly female, in no apparent distress. CARDIOVASCULAR: Regular rate and regular rhythm without murmurs, gallops, or rubs. RESPIRATORY: Clear to auscultation. Breath sounds equal bilaterally. No wheezes , rales, or rhonchi. GASTROINTESTINAL: Abdomen soft, non-tender, nondistended. Normal, active bowel sounds MUSCULOSKELETAL: Extremities without clubbing, cyanosis, or edema. NEURO: awake and alert- oriented to person,knows that she's in the hospital- not oriented to the time. Medications and IVs Current Medications Ceftriaxone Sodium 1000 mg/ Sodium Chloride 100 ml @ 200 mls/hr ONCE ONCE IV Last administered on 03/14/17 12:14; Start 03/14/17 at 12:00; Stop 03/14/17 at 12:29; Status DC Pharmacy Profile Note 0 ml @ 0 mls/hr UNSCH OTHER ; Start 03/14/17 at 13:15 Ceftriaxone Sodium 1000 mg/ Sodium Chloride 100 ml @ 200 mls/hr Q24H IV Last administered on 03/15/17 11:02; Start 03/15/17 at 12:00 Ondansetron HCl (Zofran Inj) 4 mg Q8HR PRN IV PUSH NAUSEA; Start 03/14/17 at 13:15 Acetaminophen (Tylenol) 650 mg Q4H PRN PO FEVER/PAIN/ HEADACHE; Start at 13:15 Sodium Chloride 1,000 ml @ 60 mls/hr [id number] ONCE IV ; Start 03/14/17 at 13:15 ; Stop 03/15/17 at 05:54; Status DC Clopidogrel Bisulfate (Plavix) 75 mg DAILY PO Last administered on 03/16/17 10:20; Start 03/15/17 at 09:00 Digoxin (Lanoxin) 0.125 mg DAILY PO Last administered on 03/16/17 10:31; Start 03/15/17 at 09:00 EZETIMIBE (Zetia) 10 mg HS PO Last administered on 03/15/17 21:28; Start at 21:00 Isosorbide Mononitrate (Ismo) 10 mg DAILY PO Last administered on 03/16/17 10 :19; Start 03/15/17 at 09:00 Levothyroxine Sodium (Synthroid) 50 mcg BIDAC PO Last administered on 06:26; Start 03/15/17 at 07:00 Lisinopril (Prinivil) 5 mg DAILY PO ; Start 03/15/17 at 09:00; Stop 03/15/17 at 09:00; Status DC Sotalol HCl (Betapace) 80 mg BID PO Last administered on 03/16/17 10:20; Start 03/14/17 at 21:00 Sucralfate (Carafate) 1 gm BID PO Last administered on 03/16/17 10:19; Start 03/14/17 at 21:00 Warfarin Sodium (Coumadin) 2.5 mg HS PO Last administered on 03/14/17 21:37; Start 03/14/17 at 21:00; Stop 03/16/17 at 10:26; Status DC Pantoprazole Sodium (Protonix) 40 mg DAILY PO Last administered on 03/16/17 10:20; Start 03/15/17 at 09:00 Pravastatin Sodium (Pravachol) 80 mg HS PO Last administered on 03/15/17 21: 28; Start 03/14/17 at 21:00 Lisinopril (Prinivil) 5 mg DAILY PO Last administered on 03/16/17 10:15; Start 03/14/17 at 14:15 Enalaprilat (Vasotec Inj) 1.25 mg Q8H PRN IV PUSH SBP> OR = 180, DBP> OR = 100 Last administered on 03/14/17 15:15; Start 03/14/17 at 14:15 Miscellaneous (Pill Splitter) 1 ea UNSCH PRN OTHER SEE LABEL COMMENTS; Start 03/14/17 at 15:15 Patient Medication Teaching (Coumadin Booklet) 1 ONCE ONCE .XX Last administered on 03/14/17 21:38; Start 03/14/17 at 21:00; Stop 03/14/17 at 21 :01; Status DC Sodium Chloride 1,000 ml @ 60 mls/hr [id number] ONCE IV Last administered on 11:03; Start 03/15/17 at 10:00; Stop 03/16/17 at 02:39; Status DC Warfarin Sodium (Coumadin) 2 mg DAILY@1600 PO ; Start 03/16/17 at 16:00 A/P Problem List: (1) Dehydration ICD Code: E86.0 - Dehydration (2) Encephalopathy ICD Code: G93.40 - Encephalopathy, unspecified Status: Acute (3) UTI (urinary tract infection) ICD Code: N39.0 - Urinary tract infection, site not specified Status: Acute Assessment and Plan A/P - acute encephalopathy- likely due to UTI and dehydration CT head with no acute abnormality. continue with neuro-checks and fall precautions- continue IV antibiotic and follow the UC continue to monitor -dehydration / with mild hypercalcemia and polycythemia; received IV fluid- improved. -mild elevation of troponin- likely due to fall/ renal insufficiency and elevated BP; denies chest pain; trend stable. resumed home meds; lisinopril, plavix , nitrate and statin. -renal insufficiency with unknown duration- continue IV fluid and monitor -atrial fibrillation -s/p pacemaker insertion; resumed Sotalol, Digoxin and couamdin-will monitor -dyslipidemia/PVD/ hypertension/ hypothyroidism; resumed home meds -DVT prophylaxis ; on Coumadin; will monitor PT/INR- pharmacy consulted for coumadin dosing. -consulted PT Discharge Planning PT recommendations noted. d/w the daughter ( ; [phone]) ; patient was in [facility] prior to this admission; might need higher level of care- SNF was d/w the case management and the patient 's daughter. not ready for discharge today. Problem Qualifiers (1) UTI (urinary tract infection): Gold Chino MD Mar 16, 2017 12:33
[2017-03-16] MEDS: cefTRIAXone INJ 1,000 MG in SODIUM CHLORIDE 0.9% INJ 100 ML IV SCH (12:37)
[2017-03-16] MEDS ORDERED: PIPERACIL-TAZO 3.375 GM PREMIX 50 ML IV SCH (14:00)
[2017-03-16 15:53] VITALS: BP 113/62; PULSE 60; RESP 20; TEMP 97.2; O2SAT 97
[2017-03-16] MEDS ORDERED: WARFARIN SOD 2 MG TAB PO SCH (16:00)
--- NOTE | 2017-03-16 18:14 | PD.CONS ---
History of Present Illness Service Infectious disease Consult Requested By Dr Chino Reason for Consult Evaluate patient with UTI, ESBL positive Primary Care Physician Unknown Diagnoses: History of Present Illness Patient seen and examined. Records reviewed. Patient is a very poor historian. Patient is an 86-year-old female brought into the hospital for further evaluation of altered mental status. She was apparently very confused. She had a fall the day of admission. There was no mention of any fever chills or sweats. She has not been having any respiratory complaint. When I asked her if she has any pain when she urinates she said she had it earlier but non- currently. She there's been no mention of any nausea vomiting or any diarrhea. Denies any abdominal pain. On evaluation, patient has not been febrile. Her WBC is normal. Her urinalysis did show evidence of pyuria. Urine culture is now reported as growing Escherichia coli ESBL positive. Patient does not have any Waters catheter in place. Infectious Disease consultation has been requested to assist with antibiotic management. Review of Systems ROS Limitations: Poor Historian Genitourinary: COMPLAINS OF: Dysuria Past Family Social History Allergies: Coded Allergies: Sulfa (Sulfonamide Antibiotics) (Verified Allergy, Unknown, 03/14/17) Uncoded Allergies: cranberries (Allergy, Mild, 03/14/17) cant eat due to a medication she takes Past Medical History atrial fibrillation PVD hypertension dyslipidemia hypothyroidism Past Surgical History pacemaker insertion Reported Medications I attest that I obtained, updated or reviewed the home and current medications. Reported Meds & Active Scripts Active Reported Lisinopril 5 Mg Tab 5 Mg PO DAILY Zofran (Ondansetron HCl) 4 Mg Tab 4 Mg PO Q12HR PRN Zetia (Ezetimibe) 10 Mg Tab 10 Mg PO HS Tramadol (Tramadol HCl) 50 Mg Tab 50 Mg PO HS PRN Sucralfate 1 Gram Tab 1 Gm PO BID on empty stomach Sotalol (Sotalol HCl) 80 Mg Tab 80 Mg PO BID Simvastatin 80 Mg Tab 80 Mg PO HS Prilosec (Omeprazole Magnesium) 20 Mg Tab 40 Mg PO DAILY Plavix (Clopidogrel Bisulfate) 75 Mg Tab 75 Mg PO DAILY Melatonin 5 Mg Tab 3 Mg PO HS Levothyroxine (Levothyroxine Sodium) 50 Mcg Tab 50 Mcg PO BID Isosorbide Mononitrate 10 Mg Tab 10 Mg PO DAILY Take 2 doses 7 hours apart. Digoxin 0.125 Mg Tab 0.125 Mg PO DAILY Coumadin (Warfarin) 2.5 Mg Tab 2.5 Mg PO HS Active Ordered Medications Current Medications Medications (Trade) Dose Ordered Sig/Lissette Route Start Time Stop Time Status Last Admin Pharmacy Profile Note 0 ml @ 0 mls/hr UNSCH OTHER 03/14/17 13:15 (Zofran Inj) 4 mg Q8HR PRN IV PUSH 03/14/17 13:15 (Tylenol) 650 mg Q4H PRN PO 03/14/17 13:15 (Plavix) 75 mg DAILY PO 03/15/17 09:00 03/16/17 10:20 (Lanoxin) 0.125 mg DAILY PO 03/15/17 09:00 03/16/17 10:31 (Zetia) 10 mg HS PO 03/14/17 21:00 03/15/17 21:28 (Ismo) 10 mg DAILY PO 03/15/17 09:00 03/16/17 10:19 (Synthroid) 50 mcg BIDAC PO 03/15/17 07:00 03/16/17 16:29 (Betapace) 80 mg BID PO 03/14/17 21:00 03/16/17 10:20 (Carafate) 1 gm BID PO 03/14/17 21:00 03/16/17 10:19 (Protonix) 40 mg DAILY PO 03/15/17 09:00 03/16/17 10:20 (Pravachol) 80 mg HS PO 03/14/17 21:00 03/15/17 21:28 (Prinivil) 5 mg DAILY PO 03/14/17 14:15 03/16/17 10:15 (Vasotec Inj) 1.25 mg Q8H PRN IV PUSH 03/14/17 14:15 03/14/17 15:15 (Pill Splitter) 1 ea UNSCH PRN OTHER 03/14/17 15:15 (Coumadin) 2 mg DAILY@1600 PO 03/16/17 16:00 03/16/17 16:29 Piperacillin Sod/ Tazobactam Sod 50 ml @ 100 mls/hr Q8H IV 03/16/17 14:00 03/16/17 16:29 Family History Unable to obtain Social History Lives in an [facility] Per records: No smoking No alcohol No illicit drug Physical Exam Vital Signs Vital Signs Date Time Temp Pulse Resp B/P (MAP) Pulse Ox O2 Delivery O2 Flow Rate FiO2 03/16/17 15:53 97.2 60 20 113/62 (79) 97 03/16/17 11:29 97.5 61 22 121/80 (94) 96 03/16/17 07:59 97.6 64 22 135/74 (94) 97 03/16/17 05:30 98.0 78 18 106/68 (81) 97 03/15/17 23:56 97.9 60 18 111/69 (83) 95 03/15/17 21:32 98.1 60 20 121/76 (91) 97 Physical Exam GENERAL: Patient is a well-nourished, well-developed female, awake and alert , not in respiratory distress. Gave me wrong age, wrong year, wrong place SKIN: Warm and dry. No generalized rash, no ecchymoses and no evidence of embolic lesions. HEAD: Atraumatic. Normocephalic. No temporal wasting, or tenderness. EYES: [place] conjunctiva. No petechia or hemorrhage. Pupils equal, round and reactive to light. Extraocular movements full and intact. No scleral icterus. No injection or drainage. EARS, NOSE AND THROAT: Nose without bleeding or purulent nasal discharge. No sinus tenderness. Mucous membranes pink and moist. No oral lesions noted. No exudate. No oral thrush. NECK: Trachea midline. Supple and not tender, no meningeal signs CARDIOVASCULAR: Regular rate and rhythm. Has systolic murmur heard at the base of the heart RESPIRATORY: Clear to auscultation. Breath sounds equal bilaterally. No rales , wheezing or rhonchi ABDOMEN: Soft, nondistended, bowel sounds present and normoactive. Has diffuse abdominal tenderness, no guarding. No rebound. No organomegaly. EXTREMITIES: No clubbing, cyanosis, or edema.No joint effusion, has good ROM. No calf tenderness. Well perfused and warm. NEUROLOGICAL: Awake and alert. Cranial nerves grossly intact. Motor grossly within normal limits. PSYCHIATRIC: Normal affect, calm and cooperative. LINE: No evidence of infection Laboratory Laboratory Tests Test 03/16/17 04:55 Prothrombin Time 28.5 Prothromb Time International Ratio 2.5 Blood Urea Nitrogen 19 Creatinine 0.77 Random Glucose 79 Calcium Level 10.1 Sodium Level 141 Potassium Level 3.4 Chloride Level 110 Carbon Dioxide Level 22.2 Anion Gap 9 Estimat Glomerular Filtration Rate 71 Date/Time Source Procedure Growth Status 03/15/17 05:40 Urine Clean Catch Urine Culture - Preliminary Gram Negative [place] Resulted Result Diagram: 03/15/17 0619 03/16/17 0455 Imaging RADIOLOGY STUDIES/FILMS REVIEWED Head CT 03/14/17 0954 Signed Impressions: Service Date/Time: February 10:23 - CONCLUSION: 1. No acute intracranial hemorrhage. 2. Bilateral cortical atrophy and chronic white matter changes characteristic for patient's age. Arturo Landeros MD Chest X-Ray 03/14/17 0954 Signed Impressions: Service Date/Time: , March 14, 2017 10:07 - CONCLUSION: 1. No acute pulmonary infiltrates. 2. Moderate compensated cardiomegaly. Arturo Landeros MD Assessment and Plan Assessment and Plan IMPRESSION Altered mental status, ?sepsis UTI, E coli ESBL (+) - ?not emptying ?Dementia RECOMMENDATION Check bladder scan Ultrasound the kidney to evaluate for obstruction Follow cultures Continue Zosyn, but increase to every 6 hours Monitor progress I will determine course of antibiotics once workup and cultures completed I will follow along with you Thank you for this consultation Magy Whitehead MD Mar 16, 2017 18:14
--- NOTE | 2017-03-16 19:27 | RADRPT ---
EXAM DATE/TIME: 03/16/2017 19:00 [facility] COMPARISON: No previous studies available for comparison. INDICATIONS : Urinary tract infection. MEDICAL HISTORY : Hypercholesterolemia. Hypertension. Hypothyroidism. Cerebrovascular accident. Myocardial infarcti on. Atrial fibrillation. SURGICAL HISTORY : Cardiac defibrillator. Pacemaker. ENCOUNTER: Initial ACUITY: 1 day PAIN SCORE: 6/10 LOCATION: Bilateral flank MEASUREMENTS: RIGHT KIDNEY: 9.7 x 5.0 x 3.9 cm LEFT KIDNEY: 10.6 x 5.3 x 4.8 cm FINDINGS: Basilar bilateral renal cysts measuring up to 11 mm on the right and 24 mm on the left. No hydronephr osis. No perinephric fluid. There is some dependent debris in the bladder. CONCLUSION: Bilateral renal cysts measuring up to 1.1 cm on the right and 2.4 cm on the left. No hydronephrosis. Bladder demonstrates dependent debris. Joseph Connors MD on March 16, 2017 at 19:22 Board Certified Radiologist. This report was verified electronically.
[2017-03-16 20:15] VITALS: BP 127/86; PULSE 59; RESP 18; TEMP 98.2; O2SAT 95
[2017-03-16] MEDS: EZETIMIBE 10 MG TAB PO SCH (22:00)
[2017-03-16] MEDS: PRAVASTATIN SOD 80 MG TAB PO SCH (22:00)
[2017-03-16] MEDS: PIPERACIL-TAZO 3.375 GM PREMIX 50 ML IV SCH (22:01)
[2017-03-17] VITALS (8 sets, daily range): BP systolic 102–186; BP diastolic 57–90; PULSE 60–68; RESP 16–22; TEMP 97.3–99.2; O2SAT 95–98
[2017-03-17] MEDS: PIPERACIL-TAZO 3.375 GM PREMIX 50 ML IV SCH ×4 (02:57→21:48)
[2017-03-17] MEDS: LEVOTHYROXINE SODIUM 50 MCG TAB PO SCH ×2 (08:30→15:47)
--- NOTE | 2017-03-17 10:23 | HHI.PR ---
Subjective Remarks in no acute distress. somewhat lethargic but was awake most part of the night. no fever. d/w the RN and no other acute issues over night. Objective Vitals Vital Signs Date Time Temp Pulse Resp B/P (MAP) Pulse Ox O2 Delivery O2 Flow Rate FiO2 03/17/17 08:01 97.9 68 106/60 (75) 97 03/17/17 03:45 98.2 60 18 102/57 (72) 96 03/17/17 00:11 98.2 60 18 131/81 (98) 97 03/16/17 20:15 98.2 59 18 127/86 (100) 95 03/16/17 15:53 97.2 60 20 113/62 (79) 97 03/16/17 11:29 97.5 61 22 121/80 (94) 96 I/O 03/16/17 03/16/17 03/16/17 03/17/17 03/17/17 03/17/17 07:00 15:00 23:00 07:00 15:00 23:00 Intake Total 240 ml Output Total 300 ml Balance -60 ml Intake Oral 240 ml Output Urine Total 300 ml # Voids 3 Result Diagram: 03/15/17 0619 03/16/17 0455 Imaging Last Impressions Renal Ultrasound 03/16/17 0000 Signed Impressions: Service Date/Time: Thursday, March 16, 2017 19:00 - CONCLUSION: Bilateral renal cysts measuring up to 1.1 cm on the right and 2.4 cm on the left. No hydronephrosis. Bladder demonstrates dependent debris. Joseph Connors MD Head CT 03/14/17 5997 Signed Impressions: Service Date/Time: February 10:23 - CONCLUSION: 1. No acute intracranial hemorrhage. 2. Bilateral cortical atrophy and chronic white matter changes characteristic for patient's age. Arturo Landeros MD Chest X-Ray 03/14/1762 Signed Impressions: Service Date/Time: February 10:07 - CONCLUSION: 1. No acute pulmonary infiltrates. 2. Moderate compensated cardiomegaly. Arturo Landeros MD Objective Remarks GENERAL:elderly female, in no apparent distress. CARDIOVASCULAR: Regular rate and regular rhythm without murmurs, gallops, or rubs. RESPIRATORY: Clear to auscultation. Breath sounds equal bilaterally. No wheezes , rales, or rhonchi. GASTROINTESTINAL: Abdomen soft, non-tender, nondistended. Normal, active bowel sounds MUSCULOSKELETAL: Extremities without clubbing, cyanosis, or edema. NEURO: awake and alert- oriented to person,knows that she's in the hospital- not oriented to the time. Medications and IVs Current Medications Ceftriaxone Sodium 1000 mg/ Sodium Chloride 100 ml @ 200 mls/hr ONCE ONCE IV Last administered on 03/14/17 12:14; Start 03/14/17 at 12:00; Stop 03/14/17 at 12:29; Status DC Pharmacy Profile Note 0 ml @ 0 mls/hr UNSCH OTHER ; Start 03/14/17 at 13:15 Ceftriaxone Sodium 1000 mg/ Sodium Chloride 100 ml @ 200 mls/hr Q24H IV Last administered on 03/16/17 12:37; Start 03/15/17 at 12:00; Stop 03/16/17 at 13 :48; Status DC Ondansetron HCl (Zofran Inj) 4 mg Q8HR PRN IV PUSH NAUSEA; Start 03/14/17 at 13:15 Acetaminophen (Tylenol) 650 mg Q4H PRN PO FEVER/PAIN/ HEADACHE; Start at 13:15 Sodium Chloride 1,000 ml @ 60 mls/hr [id number] ONCE IV ; Start 03/14/17 at 13:15 ; Stop 03/15/17 at 05:54; Status DC Clopidogrel Bisulfate (Plavix) 75 mg DAILY PO Last administered on 03/16/17 10:20; Start 03/15/17 at 09:00 Digoxin (Lanoxin) 0.125 mg DAILY PO Last administered on 03/16/17 10:31; Start 03/15/17 at 09:00 EZETIMIBE (Zetia) 10 mg HS PO Last administered on 03/16/17 22:00; Start at 21:00 Isosorbide Mononitrate (Ismo) 10 mg DAILY PO Last administered on 03/16/17 10 :19; Start 03/15/17 at 09:00 Levothyroxine Sodium (Synthroid) 50 mcg BIDAC PO Last administered on 08:30; Start 03/15/17 at 07:00 Lisinopril (Prinivil) 5 mg DAILY PO ; Start 03/15/17 at 09:00; Stop 03/15/17 at 09:00; Status DC Sotalol HCl (Betapace) 80 mg BID PO Last administered on 03/16/17 22:00; Start 03/14/17 at 21:00 Sucralfate (Carafate) 1 gm BID PO Last administered on 03/16/17 22:00; Start 03/14/17 at 21:00 Warfarin Sodium (Coumadin) 2.5 mg HS PO Last administered on 03/14/17 21:37; Start 03/14/17 at 21:00; Stop 03/16/17 at 10:26; Status DC Pantoprazole Sodium (Protonix) 40 mg DAILY PO Last administered on 03/16/17 10:20; Start 03/15/17 at 09:00 Pravastatin Sodium (Pravachol) 80 mg HS PO Last administered on 03/16/17 22: 00; Start 03/14/17 at 21:00 Lisinopril (Prinivil) 5 mg DAILY PO Last administered on 03/16/17 10:15; Start 03/14/17 at 14:15 Enalaprilat (Vasotec Inj) 1.25 mg Q8H PRN IV PUSH SBP> OR = 180, DBP> OR = 100 Last administered on 03/14/17 15:15; Start 03/14/17 at 14:15 Miscellaneous (Pill Splitter) 1 ea UNSCH PRN OTHER SEE LABEL COMMENTS; Start 03/14/17 at 15:15 Patient Medication Teaching (Coumadin Booklet) 1 ONCE ONCE .XX Last administered on 03/14/17 21:38; Start 03/14/17 at 21:00; Stop 03/14/17 at 21 :01; Status DC Sodium Chloride 1,000 ml @ 60 mls/hr [id number] ONCE IV Last administered on 11:03; Start 03/15/17 at 10:00; Stop 03/16/17 at 02:39; Status DC Warfarin Sodium (Coumadin) 2 mg DAILY@1600 PO Last administered on 03/16/17 16:29; Start 03/16/17 at 16:00 Piperacillin Sod/ Tazobactam Sod 50 ml @ 100 mls/hr Q8H IV Last administered on 03/16/17t 16:29; Start 03/16/17 at 14:00; Stop 03/16/17 at 18:07; Status DC Piperacillin Sod/ Tazobactam Sod 50 ml @ 100 mls/hr Q6H IV Last administered on 03/17/17t 08:30; Start 03/16/17 at 20:00 A/P Problem List: (1) Dehydration ICD Code: E86.0 - Dehydration (2) Encephalopathy ICD Code: G93.40 - Encephalopathy, unspecified Status: Acute (3) UTI (urinary tract infection) ICD Code: N39.0 - Urinary tract infection, site not specified Status: Acute Assessment and Plan A/P - acute encephalopathy- likely due to UTI and dehydration CT head with no acute abnormality. continue with neuro-checks and fall precautions- continue IV antibiotic. continue to monitor -UTI micheline ESBL-pos. Klebsiella renal US with bilateral cysts and no hydronephrosis. started on Zosyn- ID consult appreciated. -dehydration / with mild hypercalcemia and polycythemia; received IV fluid- improved. -mild elevation of troponin- likely due to fall/ renal insufficiency and elevated BP; denies chest pain; trend stable. resumed home meds; lisinopril, plavix , nitrate and statin. -renal insufficiency with unknown duration- continue IV fluid and monitor -atrial fibrillation -s/p pacemaker insertion; resumed Sotalol, Digoxin and couamdin-will monitor -dyslipidemia/PVD/ hypertension/ hypothyroidism; resumed home meds -DVT prophylaxis ; on Coumadin; will monitor PT/INR- pharmacy consulted for coumadin dosing. -consulted PT Discharge Planning PT recommendations noted. previously d/w the daughter ( ; [phone]) ; patient was in [facility] prior to this admission; might need higher level of care- SNF was d/w the case management and the patient 's daughter. dc planning to SNF. Problem Qualifiers (1) UTI (urinary tract infection): Gold Chino MD Mar 17, 2017 10:23
[2017-03-17 10:36] LABS: INTERNATIONAL NORMALIZED RATIO 2.2 RATIO; PROTHROMBIN TIME - PATIENT 24.8 SEC (9.8-11.6)
[2017-03-17] MEDS: ISOSORBIDE MONONITRATE 20 MG TAB PO SCH (11:10)
[2017-03-17] MEDS: SOTALOL HCL 80 MG TAB PO SCH ×2 (11:10→21:48)
[2017-03-17] MEDS: DIGOXIN 0.125 MG TAB PO SCH (11:10)
[2017-03-17] MEDS: PANTOPRAZOLE SOD 40 MG DELAYED RELEASE TAB PO SCH (11:10)
[2017-03-17] MEDS: SUCRALFATE 1 GM TAB PO SCH ×2 (11:10→21:47)
[2017-03-17] MEDS: CLOPIDOGREL 75 MG TAB PO SCH (11:11)
[2017-03-17] MEDS: LISINOPRIL 5 MG TAB PO SCH (11:13)
[2017-03-17] MEDS ORDERED: WARFARIN SOD 3 MG TAB PO ONE (16:00)
[2017-03-17] MEDS ORDERED: WARFARIN SOD 2.5 MG TAB PO SCH (16:00)
--- NOTE | 2017-03-17 16:09 | HHI.IDPN ---
Subjective Subjective Remarks Patient is an 86-year-old female brought into the hospital for further evaluation of altered mental status. She was apparently very confused. She had a fall the day of admission. There was no mention of any fever chills or sweats. She has not been having any respiratory complaint. When I asked her if she has any pain when she urinates she said she had it earlier but non- currently. She there's been no mention of any nausea vomiting or any diarrhea. Denies any abdominal pain. On evaluation, patient has not been febrile. Her WBC is normal. Her urinalysis did show evidence of pyuria. Urine culture is now reported as growing Escherichia coli ESBL positive. Patient does not have any Waters catheter in place. Infectious Disease consultation has been requested to assist with antibiotic management. Notes reviewed temps ok Has high volume recorded in bladder scan Renal US no obstruction Creatinine lower WBC normal Antibiotics I attest that I obtained, updated or reviewed the home and current medications. Zosyn Current Medications Medications (Trade) Dose Ordered Sig/Lissette Route Start Time Stop Time Status Last Admin Pharmacy Profile Note 0 ml @ 0 mls/hr UNSCH OTHER 03/14/17 13:15 (Zofran Inj) 4 mg Q8HR PRN IV PUSH 03/14/17 13:15 (Tylenol) 650 mg Q4H PRN PO 03/14/17 13:15 (Plavix) 75 mg DAILY PO 03/15/17 09:00 03/17/17 11:11 (Lanoxin) 0.125 mg DAILY PO 03/15/17 09:00 03/17/17 11:10 (Zetia) 10 mg HS PO 03/14/17 21:00 03/16/17 22:00 (Ismo) 10 mg DAILY PO 03/15/17 09:00 03/17/17 11:10 (Synthroid) 50 mcg BIDAC PO 03/15/17 07:00 03/17/17 15:47 (Betapace) 80 mg BID PO 03/14/17 21:00 03/17/17 11:10 (Carafate) 1 gm BID PO 03/14/17 21:00 03/17/17 11:10 (Protonix) 40 mg DAILY PO 03/15/17 09:00 03/17/17 11:10 (Pravachol) 80 mg HS PO 03/14/17 21:00 03/16/17 22:00 (Prinivil) 5 mg DAILY PO 03/14/17 14:15 03/16/17 10:15 (Vasotec Inj) 1.25 mg Q8H PRN IV PUSH 03/14/17 14:15 03/14/17 15:15 (Pill Splitter) 1 ea UNSCH PRN OTHER 03/14/17 15:15 Piperacillin Sod/ Tazobactam Sod 50 ml @ 100 mls/hr Q6H IV 03/16/17 20:00 03/17/17 13:47 (Coumadin) 2.5 mg DAILY@1600 PO 03/18/17 16:00 Lines PIV Past Medical History atrial fibrillation PVD hypertension dyslipidemia hypothyroidism Past Surgical History pacemaker insertion Allergies: Coded Allergies: Sulfa (Sulfonamide Antibiotics) (Verified Allergy, Unknown, 03/14/17) Uncoded Allergies: cranberries (Allergy, Mild, 03/14/17) cant eat due to a medication she takes Objective . Vital Signs Date Time Temp Pulse Resp B/P (MAP) Pulse Ox O2 Delivery O2 Flow Rate FiO2 03/17/17 13:07 97.9 60 20 145/90 (108) 96 03/17/17 08:01 97.9 68 106/60 (75) 97 03/17/17 03:45 98.2 60 18 102/57 (72) 96 03/17/17 00:11 98.2 60 18 131/81 (98) 97 03/16/17 20:15 98.2 59 18 127/86 (100) 95 03/17/17 03/17/17 03/18/17 15:00 23:00 07:00 Bladder Scan Volume Amount 650 ml 500 ml . Laboratory Tests Test 03/16/17 04:55 Blood Urea Nitrogen 19 MG/DL Creatinine 0.77 MG/DL Random Glucose 79 MG/DL Calcium Level 10.1 MG/DL Sodium Level 141 MEQ/L Potassium Level 3.4 MEQ/L Chloride Level 110 MEQ/L Carbon Dioxide Level 22.2 MEQ/L Anion Gap 9 MEQ/L Estimat Glomerular Filtration Rate 71 ML/MIN Microbiology Date/Time Source Procedure Growth Status 03/15/17 05:40 Urine Clean Catch Urine Culture - Final Klebsiella Pneumoniae Esbl Pos Complete Imaging Last Impressions Renal Ultrasound 03/16/17 0000 Signed Impressions: Service Date/Time: Thursday, March 16, 2017 19:00 - CONCLUSION: Bilateral renal cysts measuring up to 1.1 cm on the right and 2.4 cm on the left. No hydronephrosis. Bladder demonstrates dependent debris. Joseph Connors MD Head CT 03/14/17 0954 Signed Impressions: Service Date/Time: February 10:23 - CONCLUSION: 1. No acute intracranial hemorrhage. 2. Bilateral cortical atrophy and chronic white matter changes characteristic for patient's age. Arturo Landeros MD Chest X-Ray 03/14/17 0954 Signed Impressions: Service Date/Time: February 10:07 - CONCLUSION: 1. No acute pulmonary infiltrates. 2. Moderate compensated cardiomegaly. Arturo Landeros MD Physical Exam GENERAL: awake and alert, not in respiratory distress. Confused SKIN: Warm and dry. No generalized rash, no ecchymoses and no evidence of embolic lesions. HEAD: Atraumatic. Normocephalic. No temporal wasting, or tenderness. EYES: [place] conjunctiva. No petechia or hemorrhage. Pupils equal, round and reactive to light. Extraocular movements full and intact. No scleral icterus. No injection or drainage. EARS, NOSE AND THROAT: Nose without bleeding or purulent nasal discharge. No sinus tenderness. Mucous membranes pink and moist. No oral lesions noted. No exudate. No oral thrush. NECK: Trachea midline. Supple and not tender, no meningeal signs CARDIOVASCULAR: Regular rate and rhythm. Has systolic murmur heard at the base of the heart RESPIRATORY: Clear to auscultation. Breath sounds equal bilaterally. No rales , wheezing or rhonchi ABDOMEN: Soft, nondistended, bowel sounds present and normoactive. Has diffuse abdominal tenderness, no guarding. No rebound. No organomegaly. EXTREMITIES: No clubbing, cyanosis, or edema.No joint effusion, has good ROM. No calf tenderness. Well perfused and warm. NEUROLOGICAL: Awake and alert. Cranial nerves grossly intact. Motor grossly within normal limits. PSYCHIATRIC: Normal affect, calm and cooperative. LINE: No evidence of infection Assessment & Plan Remarks IMPRESSION Altered mental status, ?sepsis UTI, E coli ESBL (+) - not emptying ?Dementia RECOMMENDATION Follow cultures Continue Zosyn, but increase to every 6 hours Monitor progress Repeat UA Will determine course of Abx depending on clinical progress Magy Whitehead MD Mar 17, 2017 16:09
[2017-03-17] MEDS: EZETIMIBE 10 MG TAB PO SCH (21:48)
[2017-03-17] MEDS: PRAVASTATIN SOD 80 MG TAB PO SCH (21:48)
[2017-03-18] VITALS: BP 118/76; PULSE 60; RESP 18; TEMP 97.3; O2SAT 98
[2017-03-18] MEDS: PIPERACIL-TAZO 3.375 GM PREMIX 50 ML IV SCH ×4 (02:14→21:10)
[2017-03-18 03:02] LABS: BACTERIA, URINE OCC /hpf; BLOOD, URINE SMALL (NEG); COMMENT (UR) CATH-CULTURE IND; CULTURE IF INDICATED CATH CULTURE IND; GLUCOSE,URINE NEG (NEG); KETONE, URINE TRACE mg/dL (NEG); MUCUS URINE FEW /lpf (OCC); NITRITE,URINE NEG (NEG); PH, URINE 5.5 (5.0-8.5); URINE COLOR YELLOW (YELLW/STRAW)
[2017-03-18 04:00] VITALS: BP 157/74; PULSE 60; RESP 18; TEMP 97.5; O2SAT 97
[2017-03-18] MEDS: LEVOTHYROXINE SODIUM 50 MCG TAB PO SCH ×2 (06:07→16:07)
[2017-03-18 08:00] VITALS: BP 136/72; PULSE 60; RESP 16; TEMP 97.9; O2SAT 95
[2017-03-18 09:06] LABS: INTERNATIONAL NORMALIZED RATIO 2.5 RATIO; PROTHROMBIN TIME - PATIENT 28.2 SEC (9.8-11.6)
[2017-03-18] MEDS: CLOPIDOGREL 75 MG TAB PO SCH (10:05)
[2017-03-18] MEDS: SUCRALFATE 1 GM TAB PO SCH ×2 (10:05→21:09)
[2017-03-18] MEDS: LISINOPRIL 5 MG TAB PO SCH (10:05)
[2017-03-18] MEDS: PANTOPRAZOLE SOD 40 MG DELAYED RELEASE TAB PO SCH (10:06)
[2017-03-18] MEDS: DIGOXIN 0.125 MG TAB PO SCH (10:06)
[2017-03-18] MEDS: SOTALOL HCL 80 MG TAB PO SCH ×2 (10:23→21:09)
[2017-03-18] MEDS: ISOSORBIDE MONONITRATE 20 MG TAB PO SCH (10:23)
--- NOTE | 2017-03-18 11:00 | HHI.IDPN ---
Subjective Subjective Remarks Patient is an 86-year-old female brought into the hospital for further evaluation of altered mental status. She was apparently very confused. She had a fall the day of admission. There was no mention of any fever chills or sweats. She has not been having any respiratory complaint. When I asked her if she has any pain when she urinates she said she had it earlier but non- currently. She there's been no mention of any nausea vomiting or any diarrhea. Denies any abdominal pain. On evaluation, patient has not been febrile. Her WBC is normal. Her urinalysis did show evidence of pyuria. Urine culture is now reported as growing Escherichia coli ESBL positive. Patient does not have any Waters catheter in place. Infectious Disease consultation has been requested to assist with antibiotic management. Notes reviewed Temps ok Renal US no obstruction Waters in place Creatinine lower WBC normal Antibiotics I attest that I obtained, updated or reviewed the home and current medications. Zosyn Current Medications Medications (Trade) Dose Ordered Sig/Lissette Route Start Time Stop Time Status Last Admin Pharmacy Profile Note 0 ml @ 0 mls/hr UNSCH OTHER 03/14/17 13:15 (Zofran Inj) 4 mg Q8HR PRN IV PUSH 03/14/17 13:15 (Tylenol) 650 mg Q4H PRN PO 03/14/17 13:15 (Plavix) 75 mg DAILY PO 03/15/17 09:00 03/18/17 10:05 (Lanoxin) 0.125 mg DAILY PO 03/15/17 09:00 03/18/17 10:06 (Zetia) 10 mg HS PO 03/14/17 21:00 03/17/17 21:48 (Ismo) 10 mg DAILY PO 03/15/17 09:00 03/18/17 10:23 (Synthroid) 50 mcg BIDAC PO 03/15/17 07:00 03/18/17 06:07 (Betapace) 80 mg BID PO 03/14/17 21:00 03/18/17 10:23 (Carafate) 1 gm BID PO 03/14/17 21:00 03/18/17 10:05 (Protonix) 40 mg DAILY PO 03/15/17 09:00 03/18/17 10:06 (Pravachol) 80 mg HS PO 03/14/17 21:00 03/17/17 21:48 (Prinivil) 5 mg DAILY PO 03/14/17 14:15 03/18/17 10:05 (Vasotec Inj) 1.25 mg Q8H PRN IV PUSH 03/14/17 14:15 03/14/17 15:15 (Pill Splitter) 1 ea UNSCH PRN OTHER 03/14/17 15:15 Piperacillin Sod/ Tazobactam Sod 50 ml @ 100 mls/hr Q6H IV 03/16/17 20:00 03/18/17 10:06 (Coumadin) 2.5 mg DAILY@1600 PO 03/18/17 16:00 Lines PIV Past Medical History atrial fibrillation PVD hypertension dyslipidemia hypothyroidism Past Surgical History pacemaker insertion Allergies: Coded Allergies: Sulfa (Sulfonamide Antibiotics) (Verified Allergy, Unknown, 03/14/17) Uncoded Allergies: cranberries (Allergy, Mild, 03/14/17) cant eat due to a medication she takes Objective . Vital Signs Date Time Temp Pulse Resp B/P (MAP) Pulse Ox O2 Delivery O2 Flow Rate FiO2 03/18/17 08:00 97.9 60 16 136/72 (93) 95 03/18/17 04:00 97.5 60 18 157/74 (101) 97 03/18/17 00:00 97.3 60 18 118/76 (90) 98 03/17/17 21:41 163/88 (113) 03/17/17 20:00 97.6 61 16 186/90 (122) 95 03/17/17 16:39 99.2 68 22 121/73 (89) 97 03/17/17 16:00 97.3 60 20 111/76 (88) 98 03/17/17 13:07 97.9 60 20 145/90 (108) 96 . Microbiology Date/Time Source Procedure Growth Status 03/18/17 02:20 Urine Catheterized Urine Urine Culture Pending Received Imaging Last Impressions Renal Ultrasound 03/16/17 0000 Signed Impressions: Service Date/Time: Thursday, March 16, 2017 19:00 - CONCLUSION: Bilateral renal cysts measuring up to 1.1 cm on the right and 2.4 cm on the left. No hydronephrosis. Bladder demonstrates dependent debris. Joseph Connors MD Head CT 03/14/17 0954 Signed Impressions: Service Date/Time: , March 14, 2017 10:23 - CONCLUSION: 1. No acute intracranial hemorrhage. 2. Bilateral cortical atrophy and chronic white matter changes characteristic for patient's age. Arturo Landeros MD Chest X-Ray 03/14/17 0954 Signed Impressions: Service Date/Time: , March 14, 2017 10:07 - CONCLUSION: 1. No acute pulmonary infiltrates. 2. Moderate compensated cardiomegaly. Arturo Landeros MD Physical Exam GENERAL: awake and alert, not in respiratory distress. Confused SKIN: Warm and dry. No generalized rash, no ecchymoses and no evidence of embolic lesions. HEAD: Atraumatic. Normocephalic. No temporal wasting, or tenderness. EYES: [place] conjunctiva. No petechia or hemorrhage. Pupils equal, round and reactive to light. Extraocular movements full and intact. No scleral icterus. No injection or drainage. EARS, NOSE AND THROAT: Nose without bleeding or purulent nasal discharge. No sinus tenderness. Mucous membranes pink and moist. No oral lesions noted. No exudate. No oral thrush. NECK: Trachea midline. Supple and not tender, no meningeal signs CARDIOVASCULAR: Regular rate and rhythm. Has systolic murmur heard at the base of the heart RESPIRATORY: Clear to auscultation. Breath sounds equal bilaterally. No rales , wheezing or rhonchi ABDOMEN: Soft, nondistended, bowel sounds present and normoactive. Has mild diffuse abdominal tenderness, no guarding. No rebound. No organomegaly. EXTREMITIES: No clubbing, cyanosis, or edema.No joint effusion, has good ROM. No calf tenderness. Well perfused and warm. NEUROLOGICAL: Awake and alert. Cranial nerves grossly intact. Motor grossly within normal limits. PSYCHIATRIC: Normal affect, calm and cooperative. LINE: No evidence of infection : Waters in place, has sediment in urine Assessment & Plan Remarks IMPRESSION Altered mental status, ?sepsis UTI, E coli ESBL (+) - not emptying well ?Dementia RECOMMENDATION Follow cultures Continue Zosyn Monitor progress Will determine course of Abx depending on clinical progress Magy Whitehead MD Mar 18, 2017 11:00
[2017-03-18 12:00] VITALS: BP 142/70; PULSE 60; RESP 18; TEMP 97.9; O2SAT 95
--- NOTE | 2017-03-18 14:56 | HHI.PR ---
Subjective Remarks seen with family at bedside now baseline- patient interactive and feisty family states frequent UTI - 6 episodes this last year- will present with confusion maya in place denies any urgency or retention history in the past Objective Vitals Vital Signs Date Time Temp Pulse Resp B/P (MAP) Pulse Ox O2 Delivery O2 Flow Rate FiO2 03/18/17 12:00 97.9 60 18 142/70 (94) 95 03/18/17 08:00 97.9 60 16 136/72 (93) 95 03/18/17 04:00 97.5 60 18 157/74 (101) 97 03/18/17 00:00 97.3 60 18 118/76 (90) 98 03/17/17 21:41 163/88 (113) 03/17/17 20:00 97.6 61 16 186/90 (122) 95 03/17/17 16:39 99.2 68 22 121/73 (89) 97 03/17/17 16:00 97.3 60 20 111/76 (88) 98 I/O 03/17/17 03/17/17 03/17/17 03/18/17 03/18/17 03/18/17 07:00 15:00 23:00 07:00 15:00 23:00 Intake Total 290 ml 50 ml Output Total 350 ml Balance 290 ml -300 ml Intake Oral 240 ml IV Total 50 ml 50 ml Output Urine Total 350 ml Bladder Scan Volume Amount 650 ml 256 ml 500 ml # Voids 2 # Bowel Movements 1 Result Diagram: 03/15/17 0619 03/16/17 0455 Imaging Last Impressions Renal Ultrasound 03/16/17 0000 Signed Impressions: Service Date/Time: Thursday, March 16, 2017 19:00 - CONCLUSION: Bilateral renal cysts measuring up to 1.1 cm on the right and 2.4 cm on the left. No hydronephrosis. Bladder demonstrates dependent debris. Joseph Connors MD Head CT 03/14/17 0954 Signed Impressions: Service Date/Time: February 10:23 - CONCLUSION: 1. No acute intracranial hemorrhage. 2. Bilateral cortical atrophy and chronic white matter changes characteristic for patient's age. Arturo Landeros MD Chest X-Ray 03/14/17 0984 Signed Impressions: Service Date/Time: February 10:07 - CONCLUSION: 1. No acute pulmonary infiltrates. 2. Moderate compensated cardiomegaly. Arturo Landeros MD Objective Remarks awake and alert oriented 3 anicteric lungs clear regular rhythm + 4/6 systolic murmur left sternal border abdomen soft, nontender, no CVA tenderness extremities no edema neuro exam- non focal- per family baseline ambulates with a walker for safety Urinary Catheter: Yes Assessment to: Continue Maya insert reason: Obstruction/Retention Date of Insertion: Mar 17, 2017 A/P Problem List: (1) Dehydration ICD Code: E86.0 - Dehydration (2) Encephalopathy ICD Code: G93.40 - Encephalopathy, unspecified Status: Acute (3) UTI (urinary tract infection) ICD Code: N39.0 - Urinary tract infection, site not specified Status: Acute Assessment and Plan A/P - acute encephalopathy- likely due to UTI and dehydration CT head with no acute abnormality. continue with neuro-checks and fall precautions- continue IV antibiotic. continue to monitor -UTI micheline ESBL-pos. Klebsiella renal US with bilateral cysts and no hydronephrosis. started on Zosyn- ID ff - maya was placed on admission- per family 500 cc obtained on insertion -voiding trial in am -dehydration / with mild hypercalcemia and polycythemia; received IV fluid- improved. -mild elevation of troponin- likely due to fall/ renal insufficiency and elevated BP; denies chest pain; trend stable. resumed home meds; lisinopril, plavix , nitrate and statin. -renal insufficiency with unknown duration- continue IV fluid and monitor- BMP in am -hypokalemia. give 30 meq po x 1 now. recheck in am -atrial fibrillation -s/p pacemaker insertion; resumed Sotalol, Digoxin and couamdin-will monitor -dyslipidemia/PVD/ hypertension/ hypothyroidism; resumed home meds -DVT prophylaxis ; on Coumadin; will monitor PT/INR- pharmacy consulted for coumadin dosing. -Out of bed to chair - PT daily Discharge Planning PT recommendations noted. previously d/w the daughter ( ; [phone]) ; patient was in [facility] prior to this admission; might need higher level of care- SNF was d/w the case management and the patient 's daughter. dc planning to SNF. Problem Qualifiers (1) UTI (urinary tract infection): Rico Coto MD Mar 18, 2017 14:56
[2017-03-18] MEDS ORDERED: POTASSIUM CHLORIDE 10 MEQ CONTROLLED RELEASE TAB PO ONE (15:15)
[2017-03-18 16:00] VITALS: BP 130/80; PULSE 60; RESP 18; TEMP 97.6; O2SAT 95
[2017-03-18] MEDS ORDERED: WARFARIN SOD 2.5 MG TAB PO SCH (16:00)
[2017-03-18 21:09] VITALS: BP 136/81; PULSE 75; RESP 19; TEMP 97.3; O2SAT 99
[2017-03-18] MEDS: PRAVASTATIN SOD 80 MG TAB PO SCH (21:09)
[2017-03-18] MEDS: EZETIMIBE 10 MG TAB PO SCH (21:09)
[2017-03-19] VITALS (7 sets, daily range): BP systolic 100–132; BP diastolic 49–83; PULSE 60–81; RESP 17–20; TEMP 97.3–98.3; O2SAT 92–100
[2017-03-19] MEDS: PIPERACIL-TAZO 3.375 GM PREMIX 50 ML IV SCH ×4 (02:35→20:27)
[2017-03-19] MEDS: LEVOTHYROXINE SODIUM 50 MCG TAB PO SCH ×2 (06:00→16:28)
[2017-03-19] MEDS: ISOSORBIDE MONONITRATE 20 MG TAB PO SCH (09:00)
--- NOTE | 2017-03-19 09:21 | HHI.PR ---
Subjective Remarks awake and alert, blunt affect but ansered all questions poor po appetite Objective Vitals Vital Signs Date Time Temp Pulse Resp B/P (MAP) Pulse Ox O2 Delivery O2 Flow Rate FiO2 03/19/17 07:54 98.3 61 18 100/62 (75) 98 03/19/17 05:03 97.5 60 20 121/59 (79) 96 03/19/17 00:58 98.1 67 19 100/49 (66) 96 03/18/17 21:09 97.3 75 19 136/81 (99) 99 03/18/17 16:00 97.6 60 18 130/80 (97) 95 03/18/17 12:00 97.9 60 18 142/70 (94) 95 I/O 03/18/17 03/18/17 03/18/17 03/19/17 03/19/17 03/19/17 07:00 15:00 23:00 07:00 15:00 23:00 Intake Total 50 ml 770 ml 110 ml Output Total 350 ml 250 ml 100 ml Balance -300 ml 520 ml 10 ml Intake Oral 720 ml 60 ml IV Total 50 ml 50 ml 50 ml Output Urine Total 350 ml 250 ml 100 ml # Bowel Movements 1 Result Diagram: 03/15/17 0619 03/16/17 0455 Imaging Last Impressions Renal Ultrasound 03/16/17 0000 Signed Impressions: Service Date/Time: Thursday, March 16, 2017 19:00 - CONCLUSION: Bilateral renal cysts measuring up to 1.1 cm on the right and 2.4 cm on the left. No hydronephrosis. Bladder demonstrates dependent debris. Joseph Connors MD Head CT 03/14/1754 Signed Impressions: Service Date/Time: February 10:23 - CONCLUSION: 1. No acute intracranial hemorrhage. 2. Bilateral cortical atrophy and chronic white matter changes characteristic for patient's age. Arturo Landeros MD Chest X-Ray 03/14/17953 Signed Impressions: Service Date/Time: February 10:07 - CONCLUSION: 1. No acute pulmonary infiltrates. 2. Moderate compensated cardiomegaly. Arturo Landeros MD Objective Remarks awake and alert oriented 3 anicteric lungs clear regular rhythm + 4/6 systolic murmur left sternal border abdomen soft, nontender, no CVA tenderness extremities no edema neuro exam- non focal- per family baseline ambulates with a walker for safety on exam- generalized weakness- needs assistance with transfers Urinary Catheter: Yes Assessment to: Remove Date of Insertion: Mar 17, 2017 Date of Removal: Mar 19, 2017 A/P Problem List: (1) Dehydration ICD Code: E86.0 - Dehydration (2) Encephalopathy ICD Code: G93.40 - Encephalopathy, unspecified Status: Acute (3) UTI (urinary tract infection) ICD Code: N39.0 - Urinary tract infection, site not specified Status: Acute Assessment and Plan A/P Acute encephalopathy- likely due to UTI and dehydration CT head with no acute abnormality. continue with neuro-checks and fall precautions- continue to monitor UTI micheline ESBL-pos. Klebsiella renal US with bilateral cysts and no hydronephrosis. started on Zosyn- ID ff repeat UA 10.23- more pyuria. ff repeat C and S -Acute urinary retention maya was placed on admission- per family 500 cc obtained on insertion -voiding trial this am if BMP improved -dehydration / with mild hypercalcemia and polycythemia; received IV fluid- improved. poor po intake recheck BMP today restart IVF in renal functions worsens given ensure with meals -mild elevation of troponin- likely due to fall/ renal insufficiency and elevated BP; denies chest pain; trend stable. resumed home meds; lisinopril, plavix , nitrate and statin. -renal insufficiency with unknown duration- BMP today -hypokalemia. give 30 meq po x 1 now. recheck today -atrial fibrillation -s/p pacemaker insertion; resumed Sotalol, Digoxin and couamdin-will monitor. INR therapeutic -dyslipidemia/PVD/ hypertension/ hypothyroidism; resumed home meds -DVT prophylaxis ; on Coumadin; will monitor PT/INR- pharmacy -Out of bed to chair - PT daily- patient very deconditioned Discharge Planning PT recommendations noted. previously d/w the daughter ( ; [phone]) ; patient was in [facility] prior to this admission; might need higher level of care- SNF was d/w the case management and the patient 's daughter. dc planning to SNF. when swtiched to po antibiotics Problem Qualifiers (1) UTI (urinary tract infection): Rico Coto MD Mar 19, 2017 09:21
[2017-03-19] MEDS: LISINOPRIL 5 MG TAB PO SCH (09:35)
[2017-03-19] MEDS: SUCRALFATE 1 GM TAB PO SCH ×2 (09:35→20:31)
[2017-03-19] MEDS: CLOPIDOGREL 75 MG TAB PO SCH (09:35)
[2017-03-19] MEDS: SOTALOL HCL 80 MG TAB PO SCH ×2 (09:36→20:31)
[2017-03-19] MEDS: PANTOPRAZOLE SOD 40 MG DELAYED RELEASE TAB PO SCH (09:36)
[2017-03-19] MEDS: DIGOXIN 0.125 MG TAB PO SCH (09:36)
[2017-03-19] MEDS ORDERED: POTASSIUM CHLORIDE 10 MEQ CONTROLLED RELEASE TAB PO ONE (09:45)
[2017-03-19 10:15] LABS: PROTHROMBIN TIME - PATIENT 34.6 SEC (9.8-11.6)
[2017-03-19 10:45] LABS: BICARBONATE 23.4 MEQ/L (21.0-32.0); POTASSIUM 3.3 MEQ/L (3.5-5.1)
[2017-03-19] MEDS ORDERED: POTASSIUM CHLORIDE 25 MEQ EFFERVESCENT TAB PO ONE (11:00)
--- NOTE | 2017-03-19 13:07 | HHI.IDPN ---
Subjective Subjective Remarks Patient is an 86-year-old female brought into the hospital for further evaluation of altered mental status. She was apparently very confused. She had a fall the day of admission. There was no mention of any fever chills or sweats. She has not been having any respiratory complaint. When I asked her if she has any pain when she urinates she said she had it earlier but non- currently. She there's been no mention of any nausea vomiting or any diarrhea. Denies any abdominal pain. On evaluation, patient has not been febrile. Her WBC is normal. Her urinalysis did show evidence of pyuria. Urine culture is now reported as growing Escherichia coli ESBL positive. Patient does not have any Maya catheter in place. Infectious Disease consultation has been requested to assist with antibiotic management. Notes reviewed Temps ok Renal US no obstruction Maya in place Creatinine lower WBC normal Repeat UC pending Being evaluated for SNF Antibiotics I attest that I obtained, updated or reviewed the home and current medications. Zosyn Current Medications Medications (Trade) Dose Ordered Sig/Lissette Route Start Time Stop Time Status Last Admin Pharmacy Profile Note 0 ml @ 0 mls/hr UNSCH OTHER 03/14/17 13:15 (Zofran Inj) 4 mg Q8HR PRN IV PUSH 03/14/17 13:15 (Tylenol) 650 mg Q4H PRN PO 03/14/17 13:15 (Plavix) 75 mg DAILY PO 03/15/17 09:00 03/19/17 09:35 (Lanoxin) 0.125 mg DAILY PO 03/15/17 09:00 03/19/17 09:36 (Zetia) 10 mg HS PO 03/14/17 21:00 03/18/17 21:09 (Ismo) 10 mg DAILY PO 03/15/17 09:00 03/18/17 10:23 (Synthroid) 50 mcg BIDAC PO 03/15/17 07:00 03/19/17 06:00 (Betapace) 80 mg BID PO 03/14/17 21:00 03/19/17 09:36 (Carafate) 1 gm BID PO 03/14/17 21:00 03/19/17 09:35 (Protonix) 40 mg DAILY PO 03/15/17 09:00 03/19/17 09:36 (Pravachol) 80 mg HS PO 03/14/17 21:00 03/18/17 21:09 (Prinivil) 5 mg DAILY PO 03/14/17 14:15 03/19/17 09:35 (Vasotec Inj) 1.25 mg Q8H PRN IV PUSH 03/14/17 14:15 03/14/17 15:15 (Pill Splitter) 1 ea UNSCH PRN OTHER 03/14/17 15:15 Piperacillin Sod/ Tazobactam Sod 50 ml @ 100 mls/hr Q6H IV 03/16/17 20:00 03/19/17 08:15 (Coumadin) 2.5 mg DAILY@1600 PO 03/18/17 16:00 Future Hold 03/18/17 16:08 Lines PIV Past Medical History atrial fibrillation PVD hypertension dyslipidemia hypothyroidism Past Surgical History pacemaker insertion Allergies: Coded Allergies: Sulfa (Sulfonamide Antibiotics) (Verified Allergy, Unknown, 03/14/17) Uncoded Allergies: cranberries (Allergy, Mild, 03/14/17) cant eat due to a medication she takes Objective . Vital Signs Date Time Temp Pulse Resp B/P (MAP) Pulse Ox O2 Delivery O2 Flow Rate FiO2 03/19/17 12:15 97.6 61 18 126/73 (90) 96 03/19/17 07:54 98.3 61 18 100/62 (75) 98 03/19/17 05:03 97.5 60 20 121/59 (79) 96 03/19/17 00:58 98.1 67 19 100/49 (66) 96 03/18/17 21:09 97.3 75 19 136/81 (99) 99 03/18/17 16:00 97.6 60 18 130/80 (97) 95 03/19/17 03/19/17 03/20/17 15:00 23:00 07:00 Intake Total 50 ml Output Total 350 ml Balance -300 ml IV Total 50 ml Output Urine Total 350 ml . Laboratory Tests Test 03/19/17 09:00 Blood Urea Nitrogen 15 MG/DL Creatinine 0.89 MG/DL Random Glucose 99 MG/DL Calcium Level 9.9 MG/DL Sodium Level 139 MEQ/L Potassium Level 3.3 MEQ/L Chloride Level 106 MEQ/L Carbon Dioxide Level 23.4 MEQ/L Anion Gap 10 MEQ/L Estimat Glomerular Filtration Rate 60 ML/MIN Microbiology Date/Time Source Procedure Growth Status 03/18/17 02:20 Urine Catheterized Urine Urine Culture Pending Received Imaging Last Impressions Renal Ultrasound 03/16/17 0000 Signed Impressions: Service Date/Time: Thursday, March 16, 2017 19:00 - CONCLUSION: Bilateral renal cysts measuring up to 1.1 cm on the right and 2.4 cm on the left. No hydronephrosis. Bladder demonstrates dependent debris. Joseph Connors MD Head CT 03/14/17 0954 Signed Impressions: Service Date/Time: February 10:23 - CONCLUSION: 1. No acute intracranial hemorrhage. 2. Bilateral cortical atrophy and chronic white matter changes characteristic for patient's age. Arturo Landeros MD Chest X-Ray 03/14/1754 Signed Impressions: Service Date/Time: February 10:07 - CONCLUSION: 1. No acute pulmonary infiltrates. 2. Moderate compensated cardiomegaly. Arturo Landeros MD Physical Exam GENERAL: awake and alert, not in respiratory distress. Confused SKIN: Warm and dry. No generalized rash, no ecchymoses and no evidence of embolic lesions. HEAD: Atraumatic. Normocephalic. No temporal wasting, or tenderness. EYES: [place] conjunctiva. No petechia or hemorrhage. Pupils equal, round and reactive to light. Extraocular movements full and intact. No scleral icterus. No injection or drainage. EARS, NOSE AND THROAT: Nose without bleeding or purulent nasal discharge. No sinus tenderness. Mucous membranes pink and moist. No oral lesions noted. No exudate. No oral thrush. NECK: Trachea midline. Supple and not tender, no meningeal signs CARDIOVASCULAR: Regular rate and rhythm. Has systolic murmur heard at the base of the heart RESPIRATORY: Clear to auscultation. Breath sounds equal bilaterally. No rales , wheezing or rhonchi ABDOMEN: Soft, nondistended, bowel sounds present and normoactive. Has mild diffuse abdominal tenderness, no guarding. No rebound. No organomegaly. EXTREMITIES: No clubbing, cyanosis, or edema.No joint effusion, has good ROM. No calf tenderness. Well perfused and warm. NEUROLOGICAL: Awake and alert. Cranial nerves grossly intact. Motor grossly within normal limits. PSYCHIATRIC: Normal affect, calm and cooperative. LINE: No evidence of infection : Maya in place, has sediment in urine Assessment & Plan Remarks IMPRESSION Altered mental status, ?sepsis UTI, E coli ESBL (+) - not emptying well - needing maya cath ?Dementia RECOMMENDATION Follow cultures Continue Zosyn, and D/C tonight Cipro 500 mg po BID x 14 days Monitor progress If no problem with po Cipro, should be ok to D/C tomorrow and complete UTI Rx May benefit from urology evaluation as outpatient Magy Whitehead MD Mar 19, 2017 13:07
[2017-03-19] MEDS: CIPROFLOXACIN 500 MG TAB PO SCH ×2 (14:08→20:31)
[2017-03-19] MEDS: POTASSIUM CHLORIDE 10 MEQ CONTROLLED RELEASE TAB PO SCH (20:31)
[2017-03-19] MEDS: EZETIMIBE 10 MG TAB PO SCH (20:31)
[2017-03-19] MEDS: PRAVASTATIN SOD 80 MG TAB PO SCH (20:31)
[2017-03-20] VITALS: BP 121/74; PULSE 61; RESP 18; TEMP 98.1; O2SAT 99
[2017-03-20 04:00] VITALS: BP 99/63; PULSE 66; RESP 18; TEMP 98; O2SAT 94
[2017-03-20] MEDS: LEVOTHYROXINE SODIUM 50 MCG TAB PO SCH ×2 (06:03→15:54)
[2017-03-20 08:00] VITALS: BP 108/66; PULSE 62; RESP 16; TEMP 97.4; O2SAT 98
[2017-03-20] MEDS: DIGOXIN 0.125 MG TAB PO SCH (08:32)
[2017-03-20] MEDS: PANTOPRAZOLE SOD 40 MG DELAYED RELEASE TAB PO SCH (08:32)
[2017-03-20] MEDS: ISOSORBIDE MONONITRATE 20 MG TAB PO SCH (08:32)
[2017-03-20] MEDS: CLOPIDOGREL 75 MG TAB PO SCH (08:32)
[2017-03-20] MEDS: CIPROFLOXACIN 500 MG TAB PO SCH ×2 (08:33→20:40)
[2017-03-20] MEDS: SOTALOL HCL 80 MG TAB PO SCH ×2 (08:33→20:40)
[2017-03-20] MEDS: SUCRALFATE 1 GM TAB PO SCH ×2 (08:33→20:40)
[2017-03-20] MEDS: POTASSIUM CHLORIDE 10 MEQ CONTROLLED RELEASE TAB PO SCH ×2 (08:33→20:40)
[2017-03-20] MEDS: LISINOPRIL 5 MG TAB PO SCH (09:02)
[2017-03-20 09:56] LABS: INTERNATIONAL NORMALIZED RATIO 2.5 RATIO; PROTHROMBIN TIME - PATIENT 29.3 SEC (9.8-11.6)
[2017-03-20 10:14] LABS: BICARBONATE 24.7 MEQ/L (21.0-32.0); POTASSIUM 3.3 MEQ/L (3.5-5.1)
[2017-03-20 12:00] VITALS: BP 133/73; PULSE 67; RESP 16; TEMP 98.2; O2SAT 95
[2017-03-20] MEDS ORDERED: POTASSIUM CHLOR 20 MEQ PREMIX 100 ML IV ONE (12:15)
--- NOTE | 2017-03-20 12:39 | HHI.PR ---
Subjective Remarks awake and alert, blunt affect denies any burning or abdominal pain Objective Vitals Vital Signs Date Time Temp Pulse Resp B/P (MAP) Pulse Ox O2 Delivery O2 Flow Rate FiO2 03/20/17 08:00 97.4 62 16 108/66 (80) 98 03/20/17 04:00 98.0 66 18 99/63 (75) 94 03/20/17 00:00 98.1 61 18 121/74 (90) 99 03/19/17 20:00 98.1 72 20 132/83 (99) 100 03/19/17 16:17 97.3 60 17 107/60 (76) 98 I/O 03/19/17 03/19/17 03/19/17 03/20/17 03/20/17 03/20/17 07:00 15:00 23:00 07:00 15:00 23:00 Intake Total 110 ml 320 ml 100 ml Output Total 100 ml 350 ml 300 ml 500 ml Balance 10 ml -30 ml -200 ml -500 ml Intake Oral 60 ml 120 ml IV Total 50 ml 200 ml 100 ml Output Urine Total 100 ml 350 ml 300 ml 500 ml Bladder Scan Volume Amount 116 ml 116 ml # Voids 0 # Bowel Movements 1 2 0 0 Result Diagram: 03/20/17 0835 Imaging Last Impressions Renal Ultrasound 03/16/17 0000 Signed Impressions: Service Date/Time: Thursday, March 16, 2017 19:00 - CONCLUSION: Bilateral renal cysts measuring up to 1.1 cm on the right and 2.4 cm on the left. No hydronephrosis. Bladder demonstrates dependent debris. Joseph Connors MD Head CT 03/14/17 0954 Signed Impressions: Service Date/Time: February 10:23 - CONCLUSION: 1. No acute intracranial hemorrhage. 2. Bilateral cortical atrophy and chronic white matter changes characteristic for patient's age. Arturo Landeros MD Chest X-Ray 03/14/1721 Signed Impressions: Service Date/Time: February 10:07 - CONCLUSION: 1. No acute pulmonary infiltrates. 2. Moderate compensated cardiomegaly. Arturo Landeros MD Objective Remarks awake and alert oriented 3 anicteric, blunt affect lungs clear regular rhythm + 4/6 systolic murmur left sternal border abdomen soft, nontender, no CVA tenderness extremities no edema neuro exam- non focal- per family baseline ambulates with a walker for safety on exam- generalized weakness- needs assistance with transfers Date of Insertion: Mar 17, 2017 Date of Removal: Mar 19, 2017 A/P Problem List: (1) Dehydration ICD Code: E86.0 - Dehydration (2) Encephalopathy ICD Code: G93.40 - Encephalopathy, unspecified Status: Acute (3) UTI (urinary tract infection) ICD Code: N39.0 - Urinary tract infection, site not specified Status: Acute Assessment and Plan A/P Acute encephalopathy- likely due to UTI and dehydration CT head with no acute abnormality. continue with neuro-checks and fall precautions- continue to monitor UTI micheline ESBL-pos. Klebsiella renal US with bilateral cysts and no hydronephrosis. -change to po Cipro -Acute urinary retention- maya out 03/19- voiding -dehydration / with mild hypercalcemia and polycythemia; received IV fluid- Resolved poor po intake restart IVF in renal functions worsens given ensure with meals -mild elevation of troponin- likely due to fall/ renal insufficiency and elevated BP; denies chest pain; trend stable. resumed home meds; lisinopril, plavix , nitrate and statin. -renal insufficiency with unknown duration- BMP today -hypokalemia.start scheduled supplement. Recheck in am -atrial fibrillation -s/p pacemaker insertion; resumed Sotalol, Digoxin and couamdin-will monitor. INR therapeutic -dyslipidemia/PVD/ hypertension/ hypothyroidism; resumed home meds -DVT prophylaxis ; on Coumadin; will monitor PT/INR- pharmacy -Out of bed to chair - PT daily- patient very deconditioned - needs SNF Discharge Planning PT recommendations noted. previously d/w the daughter ( ; [phone]) ; patient was in [facility] prior to this admission; might need higher level of care- SNF was d/w the case management and the patient 's daughter. dc planning to SNF. when swtiched to po antibiotics Problem Qualifiers (1) UTI (urinary tract infection): Rico Coto MD Mar 20, 2017 12:39
[2017-03-20 16:00] VITALS: BP 116/73; PULSE 60; RESP 16; TEMP 98.1; O2SAT 97
[2017-03-20] MEDS ORDERED: WARFARIN SOD 2.5 MG TAB PO SCH (16:00)
[2017-03-20 20:00] VITALS: BP 100/56; PULSE 63; RESP 18; TEMP 98.2; O2SAT 98
[2017-03-20] MEDS: EZETIMIBE 10 MG TAB PO SCH (20:40)
[2017-03-20] MEDS: PRAVASTATIN SOD 80 MG TAB PO SCH (20:40)
[2017-03-21] VITALS: BP 113/65; PULSE 62; RESP 18; TEMP 97.8; O2SAT 96
[2017-03-21 04:00] VITALS: BP 124/69; PULSE 67; RESP 18; TEMP 97.7; O2SAT 97
[2017-03-21] MEDS: LEVOTHYROXINE SODIUM 50 MCG TAB PO SCH (05:57)
[2017-03-21 08:00] VITALS: BP 128/79; PULSE 61; RESP 18; TEMP 98.6; O2SAT 97
[2017-03-21 08:28] LABS: INTERNATIONAL NORMALIZED RATIO 2.6 RATIO; PROTHROMBIN TIME - PATIENT 29.4 SEC (9.8-11.6)
[2017-03-21] MEDS: LISINOPRIL 5 MG TAB PO SCH (09:48)
[2017-03-21] MEDS: CLOPIDOGREL 75 MG TAB PO SCH (09:48)
[2017-03-21] MEDS: SUCRALFATE 1 GM TAB PO SCH (09:48)
[2017-03-21] MEDS: DIGOXIN 0.125 MG TAB PO SCH (09:48)
[2017-03-21] MEDS: CIPROFLOXACIN 500 MG TAB PO SCH (09:48)
[2017-03-21] MEDS: PANTOPRAZOLE SOD 40 MG DELAYED RELEASE TAB PO SCH (09:49)
[2017-03-21] MEDS: POTASSIUM CHLORIDE 10 MEQ CONTROLLED RELEASE TAB PO SCH (09:49)
[2017-03-21] MEDS: ISOSORBIDE MONONITRATE 20 MG TAB PO SCH (10:02)
[2017-03-21] MEDS: SOTALOL HCL 80 MG TAB PO SCH (10:02)
--- NOTE | 2017-03-21 11:13 | HHI.PR ---
Subjective Remarks patient awake and alert, blunt affect denies any pain d/w going to rehab- "I want to get stronger" Objective Vitals Vital Signs Date Time Temp Pulse Resp B/P (MAP) Pulse Ox O2 Delivery O2 Flow Rate FiO2 03/21/17 08:00 98.6 61 18 128/79 (95) 97 03/21/17 04:00 97.7 67 18 124/69 (87) 97 03/21/17 00:00 97.8 62 18 113/65 (81) 96 03/20/17 20:00 98.2 63 18 100/56 (71) 98 03/20/17 16:00 98.1 60 16 116/73 (87) 97 03/20/17 12:00 98.2 67 16 133/73 (93) 95 I/O 03/20/17 03/20/17 03/20/17 03/21/17 03/21/17 03/21/17 07:00 15:00 23:00 07:00 15:00 23:00 Intake Total 200 ml Output Total 500 ml Balance -500 ml 200 ml IV Total 200 ml Output Urine Total 500 ml # Voids 2 # Bowel Movements 0 Result Diagram: 03/20/17 0835 Imaging Last Impressions Renal Ultrasound 03/16/17 0000 Signed Impressions: Service Date/Time: Thursday, March 16, 2017 19:00 - CONCLUSION: Bilateral renal cysts measuring up to 1.1 cm on the right and 2.4 cm on the left. No hydronephrosis. Bladder demonstrates dependent debris. Joseph Connors MD Head CT 03/14/17 0930 Signed Impressions: Service Date/Time: February 10:23 - CONCLUSION: 1. No acute intracranial hemorrhage. 2. Bilateral cortical atrophy and chronic white matter changes characteristic for patient's age. Arturo Landeros MD Chest X-Ray 03/14/17 0929 Signed Impressions: Service Date/Time: February 10:07 - CONCLUSION: 1. No acute pulmonary infiltrates. 2. Moderate compensated cardiomegaly. Arturo Landeros MD Objective Remarks awake and alert oriented 3 anicteric, blunt affect lungs clear regular rhythm + 4/6 systolic murmur left sternal border abdomen soft, nontender, no CVA tenderness extremities no edema neuro exam- non focal- per family baseline ambulates with a walker for safety on exam- generalized weakness- - needs assist for transfers Date of Insertion: Mar 17, 2017 Date of Removal: Mar 19, 2017 A/P Problem List: (1) Dehydration ICD Code: E86.0 - Dehydration (2) Encephalopathy ICD Code: G93.40 - Encephalopathy, unspecified Status: Acute (3) UTI (urinary tract infection) ICD Code: N39.0 - Urinary tract infection, site not specified Status: Acute Assessment and Plan A/P Acute encephalopathy- MS improved likely due to UTI and dehydration CT head with no acute abnormality. continue to monitor UTI micheline ESBL-pos. Klebsiella renal US with bilateral cysts and no hydronephrosis. -change to po Cipro for total 14 days per ID recommendations -Acute urinary retention- maya out 03/19- voiding -dehydration / with mild hypercalcemia and polycythemia; received IV fluid- Resolved poor po intake restart IVF in renal functions worsens given ensure with meals -mild elevation of troponin- likely due to fall/ renal insufficiency and elevated BP; denies chest pain; trend stable. resumed home meds; lisinopril, plavix , nitrate and statin. -renal insufficiency with unknown duration- BMP today -hypokalemia.start scheduled supplement. Recheck in am -atrial fibrillation -s/p pacemaker insertion; resumed Sotalol, Digoxin and couamdin-will monitor. INR therapeutic -dyslipidemia/PVD/ hypertension/ hypothyroidism; resumed home meds -DVT prophylaxis ; on Coumadin; will monitor PT/INR- pharmacy -Out of bed to chair - PT daily- patient very deconditioned - needs SNF Discharge Planning PT recommendations noted. previously d/w the daughter ( ; [phone]) ; patient was in [facility] prior to this admission; might need higher level of care- SNF was d/w the case management and the patient 's daughter. - [place] today if arranged Problem Qualifiers (1) UTI (urinary tract infection): Rico Coto MD Mar 21, 2017 11:13
[2017-03-21] MEDS ORDERED: POTA-243 PO (11:18)
[2017-03-21] MEDS ORDERED: CIPR-9 PO (11:18)
[2017-03-21 12:00] VITALS: BP 136/76; PULSE 65; RESP 18; TEMP 98.2; O2SAT 97
[2017-03-21 14:26] LABS: BICARBONATE 25.3 MEQ/L (21.0-32.0); MAGNESIUM 1.5 MG/DL (1.5-2.5); POTASSIUM 3.6 MEQ/L (3.5-5.1)
--- NOTE | 2017-03-21 16:55 | HHI.DS ---
Discharge Summary Admission Date Mar 17, 2017 at 10:25 Discharge Date: Mar 21, 2017 Admitting Diagnosis Metabolic encephopathy secondary to UTI (1) Encephalopathy ICD Code: G93.40 - Encephalopathy, unspecified Diagnosis: Principal Status: Acute (2) UTI (urinary tract infection) ICD Code: N39.0 - Urinary tract infection, site not specified Diagnosis: Principal Status: Acute (3) Dehydration ICD Code: E86.0 - Dehydration Diagnosis: Principal Procedures none Brief History - From Admission patient is a 86 y/o female with history of atrial fibrillation, hypertension and vascular disease, who was sent to ER from assisted living facility for altered metal status. patient is not a good historian and most of the information was obtained from the ER documents. per the report she was fully oriented last night however reportedly she had a fall earlier today. she was oriented to person at the time. at the time of my evaluation she was resting comfortably with no distress. she denies any pain or headache.she says that she thinks she's in the doctor's office. she's not oriented to the time. CBC/BMP: 03/21/17 1325 Significant Findings Laboratory Tests Test 03/19/17 09:00 03/20/17 08:35 03/21/17 07:44 03/21/17 13:25 Prothrombin Time 34.6 SEC (9.8-11.6) 29.3 SEC (9.8-11.6) 29.4 SEC (9.8-11.6) Potassium Level 3.3 MEQ/L (3.5-5.1) 3.3 MEQ/L (3.5-5.1) Estimat Glomerular Filtration Rate 60 ML/MIN (>89) 64 ML/MIN (>89) 82 ML/MIN (>89) Random Glucose 143 MG/DL (74-106) Imaging Last Impressions Renal Ultrasound 03/16/17 0000 Signed Impressions: Service Date/Time: Saturday, March 16, 2017 19:00 - CONCLUSION: Bilateral renal cysts measuring up to 1.1 cm on the right and 2.4 cm on the left. No hydronephrosis. Bladder demonstrates dependent debris. Joseph Connors MD Head CT 03/14/17 0954 Signed Impressions: Service Date/Time: February 10:23 - CONCLUSION: 1. No acute intracranial hemorrhage. 2. Bilateral cortical atrophy and chronic white matter changes characteristic for patient's age. Arturo Landeros MD Chest X-Ray 03/14/17 0954 Signed Impressions: Service Date/Time: February 10:07 - CONCLUSION: 1. No acute pulmonary infiltrates. 2. Moderate compensated cardiomegaly. Arturo Landeros MD PE at Discharge awake and alert oriented 3 anicteric, blunt affect lungs clear regular rhythm + 4/6 systolic murmur left sternal border abdomen soft, nontender, no CVA tenderness extremities no edema neuro exam- non focal- per family baseline ambulates with a walker for safety on exam- generalized weakness- - needs assist for transfers Pt update on day of discharge awake and alert, afebrile motivated with getting more physical therapy Hospital Course Acute encephalopathy- MS improved likely due to UTI and dehydration CT head with no acute abnormality. continue to monitor UTI micheline ESBL-pos. Klebsiella renal US with bilateral cysts and no hydronephrosis. -change to po Cipro for total 14 days per ID recommendations -Acute urinary retention- maya out 03/19- voiding -dehydration / with mild hypercalcemia and polycythemia; received IV fluid- Resolved poor po intake restart IVF in renal functions worsens given ensure with meals -mild elevation of troponin- likely due to fall/ renal insufficiency and elevated BP; denies chest pain; trend stable. resumed home meds; lisinopril, plavix , nitrate and statin. -renal insufficiency with unknown duration- BMP today -hypokalemia.start scheduled supplement. Recheck in am -atrial fibrillation -s/p pacemaker insertion; resumed Sotalol, Digoxin and couamdin-will monitor. INR therapeutic -dyslipidemia/PVD/ hypertension/ hypothyroidism; resumed home meds -DVT prophylaxis ; on Coumadin; will monitor PT/INR- pharmacy -Out of bed to chair - PT daily- patient very deconditioned - needs SNF Discharge Planning PT recommendations noted. previously d/w the daughter ( ; [phone]) ; patient was in [facility] prior to this admission; might need higher level of care- SNF was d/w the case management and the patient 's daughter. - [facility] today if arranged Pt Condition on Discharge: Stable Discharge Disposition: Rehab Inpatient Discharge Time: <= 30 minutes Discharge Instructions DIET: Follow Instructions for: As Tolerated, No Restrictions Speech Therapy-Diet Recommends: Regular Activities you can perform: Weight Bearing as El New Orders: BASIC METABOLIC PROF - 03/22/17 New Medications: Ciprofloxacin (Cipro) 500 Mg Tab 500 MG PO Q12HR for UTI for 12 Days, TAB Potassium Chloride ER (Klor-Con 10) 10 Meq Tab 20 MEQ PO Q12HR for electr for 3 Days, TAB Continued Medications: Clopidogrel (Plavix) 75 Mg Tab 75 MG PO DAILY for Blood Clot Prevention, #30 TAB 0 Refills Digoxin (Digoxin) 0.125 Mg Tab 0.125 MG PO DAILY for Regulate Heart Beat, #30 TAB 0 Refills Ezetimibe (Zetia) 10 Mg Tab 10 MG PO HS, #30 TAB 0 Refills Isosorbide Mononitrate (Isosorbide Mononitrate) 10 Mg Tab 10 MG PO DAILY for Prevent Chest Pain, #60 TAB Take 2 doses 7 hours apart. Levothyroxine (Levothyroxine) 50 Mcg Tab 50 MCG PO BID for Thyroid, #30 TAB 0 Refills Lisinopril (Lisinopril) 5 Mg Tab 5 MG PO DAILY for Blood Pressure Management, #30 TAB 0 Refills Melatonin (Melatonin) 5 Mg Tab 3 MG PO HS for Provide Good Sleep, TAB 0 Refills Omeprazole Magnesium (Prilosec) 20 Mg Tab 40 MG PO DAILY Simvastatin (Simvastatin) 80 Mg Tab 80 MG PO HS for Cholesterol Management, #30 TAB 0 Refills Sotalol (Sotalol) 80 Mg Tab 80 MG PO BID for Regulate Heart Beat, #60 TAB 0 Refills Sucralfate (Sucralfate) 1 Gram Tab 1 GM PO BID for Duodenal ulcer, #120 TAB 0 Refills on empty stomach Warfarin (Coumadin) 2.5 Mg Tab 2.5 MG PO HS for Prevent Blood Clot, #30 TAB 0 Refills Rico Coto MD Mar 21, 2017 16:55
== END 2017-03-21 15:29 | DRG 689 ==
LOC: NEPC 09:31 → NEDA 12:45 → NEPGCP 16:20 → OBSVTOIN 03-17 10:25 → N05B 03-17 15:10
PROVIDERS: ADMIT Internal Medicine; ATTEND Internal Medicine
DX: N39.0 Urinary tract infection, site not specified (principal); G93.41 Metabolic encephalopathy; I48.91 Unspecified atrial fibrillation; E86.0 Dehydration; D75.1 Secondary polycythemia; E83.52 Hypercalcemia; I10 Essential (primary) hypertension; B96.20 Unspecified Escherichia coli [E. coli] as the cause of diseases classified elsewhere; E03.9 Hypothyroidism, unspecified; E78.5 Hyperlipidemia, unspecified; I73.9 Peripheral vascular disease, unspecified; Z79.01 Long term (current) use of anticoagulants; Z95.0 Presence of cardiac pacemaker
CPT/HCPCS: 70450; 71010; 76775; 80048; 80053; 80162; 81001; 82550; 83735; 83880; 84484; 85025; 85610; 85730; 87077; 87086; 87186; 93005; G8987-GP; G8988-GP; J0696; J2543; J3480; J7030

== ENCOUNTER 2017-05-11 13:48 | Inpatient (IN) | payer MEDICARE, BC ==
[2017-05-11] VITALS (13 sets, daily range): BP systolic 131–187; BP diastolic 70–94; PULSE 62–86; RESP 17–24; TEMP 97.5–98; O2SAT 93–96
[~2017-05-11] VITALS: Ht 157.5 cm; Wt 53.5 kg
[~2017-05-11 13:48] MED LIST: COUM2TAB PO; DIGO0.12 PO; EZET10 PO; ISOS10TA3 PO; KLOR10TA PO; LEVO.1 PO; LISI-519 PO; PLAV75TA29 PO; PRIL20TA2 PO; SIMV80TA PO; SOTA80TA PO; SUCR1TAB PO
[2017-05-11] MEDS ORDERED: SODIUM CHLORIDE 0.9% FLUSH 10 ML FLUSH IV FLUSH PRN ×2 (14:15→18:15)
--- NOTE | 2017-05-11 14:20 | PD ---
HPI Chief Complaint: Altered Mental Status Time Seen by Provider: 13:54 Travel History International Travel<30 days: No Contact w/Intl Traveler<30days: No History of Present Illness HPI 86-year-old female with a past medical history of atrial fibrillation, hypertension and vascular disease presents to the emergency department via EMS for evaluation of altered mental status. Patient is from a nursing facility. According to EMS, she has been more altered and confused than normal for the past 2 hours. According to EMS, the patient was hypotensive when fire arrived, systolic blood pressure 93. However, since EMS has had her, she has not had any episodes of hypotension. The patient is alert and answers questions. She follows commands. However, she is oriented to person only. She believes the year is 8 and does not know the month, the president or where she has not. She denies any pain. No headache, fevers, chills. She denies any chest pain or shortness of breath. No abdominal pain. No nausea, vomiting, diarrhea. Moderate severity. No exacerbating or alleviating factors. PFSH Past Medical History Atrial Fibrillation: Yes Autoimmune Disease: No Heart Rhythm Problems: Yes (afib) Cancer: No Cardiovascular Problems: Yes High Cholesterol: Yes Chest Pain: No Congestive Heart Failure: No Cerebrovascular Accident: Yes (mini strokes in may ) Diabetes: No Diminished Hearing: Yes Endocrine: Yes GERD: No Genitourinary: Yes Hiatal Hernia: No Hypertension: Yes Immune Disorder: No Kidney Stones: No Musculoskeletal: No Neurologic: Yes Psychiatric: No Reproductive: No Respiratory: No Migraines: No Renal Failure: No Seizures: No Sickle Cell Disease: No Thyroid Disease: Yes (hypothyroid) Ulcer: Yes Past Surgical History Abdominal Surgery: No (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 ) AICD: Yes Arteriovenous Shunt: No Cardiac Surgery: Yes (defib and pacer) Ear Surgery: No Endocrine Surgery: No Eye Surgery: No Genitourinary Surgery: No Gynecologic Surgery: Yes (hysterectomy ) Insulin Pump: No Joint Replacement: No Oral Surgery: No Pacemaker: Yes Thoracic Surgery: No Social History Alcohol Use: No Tobacco Use: No Substance Use: No Allergies-Medications (Allergen,Severity, Reaction): Coded Allergies: Sulfa (Sulfonamide Antibiotics) (Verified Allergy, Unknown, 05/11/17) mineral oil (Verified Allergy, Unknown, 05/11/17) petrolatum,hydrophilic (Verified Allergy, Unknown, 05/11/17) MRI PRECAUTION (Verified Adverse Reaction, Severe, pacemaker defibrillator , 05/11/17) dml 05/11/17 Uncoded Allergies: cranberries (Allergy, Mild, 03/14/17) cant eat due to a medication she takes Reported Meds & Prescriptions Reported Meds & Active Scripts Active Synthroid (Levothyroxine Sodium) 100 Mcg Tab 100 Mcg PO DAILY@0600 Coumadin (Warfarin) 2 Mg Tab 2 Mg PO DAILY@1600 Klor-Con 10 (Potassium Chloride) 10 Meq Tab 20 Meq PO DAILY Zetia (Ezetimibe) 10 Mg Tab 10 Mg PO HS Sucralfate 1 Gram Tab 1 Gm PO BID on empty stomach Sotalol (Sotalol HCl) 80 Mg Tab 80 Mg PO BID Simvastatin 80 Mg Tab 80 Mg PO HS Plavix (Clopidogrel Bisulfate) 75 Mg Tab 75 Mg PO DAILY Isosorbide Mononitrate 10 Mg Tab 10 Mg PO DAILY Digoxin 0.125 Mg Tab 0.125 Mg PO DAILY Reported Tramadol (Tramadol HCl) 50 Mg Tab 50 Mg PO Q6H PRN Acetaminophen 325 Mg Capsule 650 Mg PO Q4HR PRN Pantoprazole (Pantoprazole Sodium) 20 Mg Tab 20 Mg PO DAILY Lisinopril 5 Mg Tab 5 Mg PO DAILY Review of Systems Except as stated in HPI: all other systems reviewed are Neg Physical Exam Narrative GENERAL: Well-nourished, well-developed elderly female patient, afebrile. Patient is alert, oriented to person only. SKIN: Focused skin assessment warm/dry. HEAD: Normocephalic. Atraumatic. ENT: Mucosa pink and moist. No erythema or exudates. No uvular edema. No uvular , palatal, or tonsillar deviation. Airway patent. Nasal turbinates appear normal without nasal blood, purulent drainage or septal hematoma. Bilateral tympanic membranes are clear without erythema or perforation. EYES: No scleral icterus. No injection or drainage. NECK: Supple, trachea midline. No JVD or lymphadenopathy. CARDIOVASCULAR: Regular rate and rhythm without murmurs, gallops, or rubs. RESPIRATORY: Breath sounds equal bilaterally. No accessory muscle use. Lungs sounds are clear to auscultation. GASTROINTESTINAL: Abdomen soft, non-tender, nondistended. MUSCULOSKELETAL: No cyanosis, or edema. Bilateral upper and lower extremity strength 5/5. Patient follows commands appropriately. BACK: Nontender without obvious deformity. No CVA tenderness. Data Data Last Documented VS Vital Signs Date Time Temp Pulse Resp B/P (MAP) Pulse Ox O2 Delivery O2 Flow Rate FiO2 05/11/17 16:00 68 20 157/87 (110) 95 Room Air 05/11/17 14:27 97.5 Orders Orders Electrocardiogram (05/11/17 14:03) Complete Blood Count With Diff (05/11/17 14:03) Comprehensive Metabolic Panel (05/11/17 14:03) Creatine Kinase (Cpk) (05/11/17 14:03) Prothrombin Time / Inr (Pt) (05/11/17 14:03) Act Partial Throm Time (Ptt) (05/11/17 14:03) Troponin I (05/11/17 14:03) Urinalysis - C+S If Indicated (05/11/17 14:03) Chest, Single Ap (05/11/17 14:03) Ct Brain W/O Iv Contrast(Rout) (05/11/17 14:03) Blood Glucose (05/11/17 14:03) Ecg Monitoring (05/11/17 14:03) Iv Access Insert/Monitor (05/11/17 14:03) Cath For Specimen (05/11/17 14:03) Oximetry (05/11/17 14:03) Sodium Chloride 0.9% Flush (Ns Flush) (05/11/17 14:15) Magnesium (Mg) (05/11/17 14:03) Digoxin (05/11/17 14:03) B-Type Natriuretic Peptide (05/11/17 14:03) Admit Order (Ed Use Only) (05/11/17 16:55) Labs Laboratory Tests Test 05/11/17 14:10 05/11/17 14:40 White Blood Count 10.7 TH/MM3 Red Blood Count 4.93 MIL/MM3 Hemoglobin 14.4 GM/DL Hematocrit 43.1 % Mean Corpuscular Volume 87.4 FL Mean Corpuscular Hemoglobin 29.2 PG Mean Corpuscular Hemoglobin Concent 33.4 % Red Cell Distribution Width 14.6 % Platelet Count 238 TH/MM3 Mean Platelet Volume 8.2 FL Neutrophils (%) (Auto) 74.3 % Lymphocytes (%) (Auto) 14.5 % Monocytes (%) (Auto) 10.1 % Eosinophils (%) (Auto) 0.5 % Basophils (%) (Auto) 0.6 % Neutrophils # (Auto) 8.0 TH/MM3 Lymphocytes # (Auto) 1.5 TH/MM3 Monocytes # (Auto) 1.1 TH/MM3 Eosinophils # (Auto) 0.1 TH/MM3 Basophils # (Auto) 0.1 TH/MM3 CBC Comment DIFF FINAL Differential Comment Prothrombin Time 16.2 SEC Prothromb Time International Ratio 1.6 RATIO Activated Partial Thromboplast Time 27.3 SEC Blood Urea Nitrogen 10 MG/DL Creatinine 0.79 MG/DL Random Glucose 134 MG/DL Total Protein 7.2 GM/DL Albumin 3.3 GM/DL Calcium Level 10.0 MG/DL Magnesium Level 1.5 MG/DL Alkaline Phosphatase 100 U/L Aspartate Amino Transf (AST/SGOT) 25 U/L Alanine Aminotransferase (ALT/SGPT) 10 U/L Total Bilirubin 2.0 MG/DL Sodium Level 135 MEQ/L Potassium Level 3.9 MEQ/L Chloride Level 103 MEQ/L Carbon Dioxide Level 26.7 MEQ/L Anion Gap 5 MEQ/L Estimat Glomerular Filtration Rate 69 ML/MIN Total Creatine Kinase 34 U/L Troponin I 0.05 NG/ML B-Type Natriuretic Peptide 1112 PG/ML Digoxin Level 1.1 NG/ML Urine Color YELLOW Urine Turbidity CLEAR Urine pH 6.5 Urine Specific Jackson 1.013 Urine Protein 30 mg/dL Urine Glucose (UA) NEG mg/dL Urine Ketones NEG mg/dL Urine Occult Blood NEG Urine Nitrite NEG Urine Bilirubin NEG Urine Urobilinogen LESS THAN 2.0 MG/DL Urine Leukocyte Esterase NEG Urine RBC 1 /hpf Urine WBC 1 /hpf Urine Squamous Epithelial Cells <1 /hpf Urine Mucus FEW /lpf Microscopic Urinalysis Comment CATH-CULT NOT IND MDM Medical Decision Making Medical Screen Exam Complete: Yes Emergency Medical Condition: Yes Medical Record Reviewed: Yes Interpretation(s) Last Impressions Head CT 05/11/17 1403 Signed Impressions: Service Date/Time: Thursday, May 11, 2017 15:20 - CONCLUSION: 1. Senescent changes with moderate periventricular small vessel scheming white matter demyelination. 2. Probable small old focal infarct in the left posterior parietal high convexities and small lacunar infarcts in the left basal ganglia. 3. No acute intracranial normality. Beny Cevallos MD Chest X-Ray 05/11/17 1403 Signed Impressions: Service Date/Time: Thursday, May 11, 2017 14:37 - CONCLUSION: 1. No acute cardiopulmonary disease. Beny Cevallos MD Differential Diagnosis Electrolyte abnormality versus UTI versus sepsis versus dehydration versus intracranial abnormality versus pneumonia Narrative Course 86-year-old elderly female presents to the emergency department via EMS for evaluation of altered mental status. She is oriented to person only. EKG, CBC , CMP, CK, troponin, magnesium, BNP, PTT, PT/INR, UA, digoxin level are ordered and pending. CT of the brain and chest x-ray are ordered and pending. EKG shows atrial fibrillation, HR 64. CBC shows no acute abnormality. CMP shows no acute abnormality. CK is 34. Troponin is 0.05. Magnesium is 1.5. BNP is 1112. PT is 16.2, INR 1.6, PTT 27.3. UA shows no acute abnormality. Digoxin level is 1.1. Chest x-ray shows no acute cardiopulmonary disease. CT of the brain shows no acute intracranial abnormality. Upon reexamination, patient is now alert and oriented to person, place, time. Her daughter is at bedside. I discussed the case with my attending physician, Dr. Pandey, who is also concerned about elevated BNP. I discussed observation admission with the patient's daughter who agrees. Residents accepted admission. Diagnosis Primary Impression: Altered mental status, unspecified Qualified Codes: R41.82 - Altered mental status, unspecified Additional Impression: Elevated brain natriuretic peptide (BNP) level Admitting Information Admitting Physician Requests: Observation Dorothy De Los Santos May 11, 2017 14:20
[2017-05-11 15:21] LABS: BLOOD, URINE NEG (NEG); COMMENT (UR) CATH-CULT NOT IND; CULTURE IF INDICATED CATH CULTURE NOT IND; GLUCOSE,URINE NEG (NEG); KETONE, URINE NEG (NEG); MUCUS URINE FEW /lpf (OCC); NITRITE,URINE NEG (NEG); PH, URINE 6.5 (5.0-8.5); SQUAMOUS EPITHELIAL CELL URINE <1 /hpf (0-5); URINE COLOR YELLOW (YELLW/STRAW)
[2017-05-11 15:22] LABS: BASOPHIL # 0.1 TH/MM3 (0-0.2); BASOPHIL % 0.6 % (0.0-2.0); EOSINOPHIL # 0.1 TH/MM3 (0-0.4); EOSINOPHIL % 0.5 % (0.0-4.0); HEMATOCRIT 43.1 % (35.0-46.0); HEMO FLAGS DIFF FINAL; LYMPH % 14.5 % (9.0-44.0); LYMPHOCYTE # 1.5 TH/MM3 (1.0-4.8); MEAN CELL VOLUME 87.4 FL (80.0-100.0); MEAN CORPUSCULAR HEMOGLOBIN 29.2 PG (27.0-34.0); MEAN CORPUSCULAR HGB CONC 33.4 % (32.0-36.0); MONO % 10.1 % (0.0-8.0); NEUT % 74.3 % (16.0-70.0); PLATELET COUNT 238 TH/MM3 (150-450); RED BLOOD COUNT 4.93 MIL/MM3 (4.00-5.30); RED CELL DISTRIBUTION WIDTH 14.6 % (11.6-17.2); WHITE BLOOD COUNT 10.7 TH/MM3 (4.0-11.0)
[2017-05-11 15:30] LABS: APTT (PATIENT) 27.3 SEC (24.3-30.1); INTERNATIONAL NORMALIZED RATIO 1.6 RATIO; PROTHROMBIN TIME - PATIENT 16.2 SEC (9.8-11.6)
[2017-05-11 15:34] LABS: ALT (GPT) 10 U/L (10-53); ANION GAP 5 MEQ/L (5-15); AST (GOT) 25 U/L (15-37); BICARBONATE 26.7 MEQ/L (21.0-32.0); BLOOD UREA NITROGEN 10 MG/DL (7-18); CHLORIDE 103 MEQ/L (98-107); GLOMERULAR FILTRATION RATE 69 ML/MIN (>89); MAGNESIUM 1.5 MG/DL (1.5-2.5); POTASSIUM 3.9 MEQ/L (3.5-5.1); SODIUM (NA) 135 MEQ/L (136-145)
--- NOTE | 2017-05-11 15:44 | RADRPT ---
EXAM DATE/TIME: 05/11/2017 14:37 [facility] COMPARISON: No previous studies available for comparison. INDICATIONS : Syncopal Episode. MEDICAL HISTORY : Atrial fib SURGICAL HISTORY : . ENCOUNTER: Initial ACUITY: 1 day PAIN SCORE: 0/10 LOCATION: Bilateral chest FINDINGS: Dual-lead AICD device. No significant focal pleural or parenchymal opacities. Cardiomediastinal conto urs are within normal limits. Bony thorax is intact. CONCLUSION: 1. No acute cardiopulmonary disease. Beny Cevallos MD on May 11, 2017 at 15:41 Board Certified Radiologist. This report was verified electronically.
--- NOTE | 2017-05-11 15:47 | RADRPT ---
EXAM DATE/TIME: 05/11/2017 15:20 [facility] COMPARISON: No previous studies available for comparison. INDICATIONS : Altered mental status. RADIATION DOSE: 56.35 CTDIvol (mGy) MEDICAL HISTORY : Stroke. Hypertension. SURGICAL HISTORY : None. ENCOUNTER: Initial ACUITY: 1 day PAIN SCALE: 0/10 LOCATION: Bilateral head TECHNIQUE: Multiple contiguous axial images were obtained of the head. Using automated exposure control and adj ustment of the mA and/or kV according to patient size, radiation dose was kept as low as reasonably a chievable to obtain optimal diagnostic quality images. DICOM format image data is available electro nically for review and comparison. FINDINGS: CEREBRUM: Moderate diffuse cerebral volume loss. Moderate periventricular white matter hypodensities. The ventr icles are normal for degree of atrophy. Small focal encephalomalacia in the left posterior parietal high convexities. The probable small lacunar infarcts in the left basal ganglia. No evidence of midli ne shift, mass lesion, hemorrhage or acute infarction. No extra-axial fluid collections are seen. POSTERIOR FOSSA: The cerebellum and brainstem are intact. The 4th ventricle is midline. The cerebellopontine angle i s unremarkable. EXTRACRANIAL: The visualized portion of the orbits is intact. SKULL: The calvaria is intact. No evidence of skull fracture. CONCLUSION: 1. Senescent changes with moderate periventricular small vessel scheming white matter demyelination. 2. Probable small old focal infarct in the left posterior parietal high convexities and small lacunar infarcts in the left basal ganglia. 3. No acute intracranial normality. Beny Cevallos MD on May 11, 2017 at 15:43 Board Certified Radiologist. This report was verified electronically.
[2017-05-11 15:48] LABS: ALKALINE PHOSPHATASE 100 U/L (45-117); DIGOXIN 1.1 NG/ML (0.8-2.0)
[2017-05-11 15:51] LABS: CREATINE KINASE 34 U/L (26-192)
[2017-05-11] MEDS ORDERED: LISI-519 PO (17:02)
[2017-05-11] MEDS ORDERED: ACET325C PO (17:02)
[2017-05-11] MEDS ORDERED: TRAM50TA PO (17:02)
[2017-05-11] MEDS ORDERED: PANT20TA2 PO (17:02)
[2017-05-11] MEDS ORDERED: ACETAMINOPHEN 650 MG PO PRN (17:45)
[2017-05-11] MEDS ORDERED: traMADol HCL 50 MG TAB PO PRN (17:45)
--- NOTE | 2017-05-11 17:55 | HHI.HP ---
HPI Service Family Medicine Primary Care Physician Unknown Admission Diagnosis AMS, elevated BNP Diagnoses: International Travel<30 Days: No Contact w/Intl Traveler<30days: No Known Affected Area: No History of Present Illness Mrs. Pan is a 86 y/o F presenting to the ED after an episode of altered mental status. Patient is accompanied by her daughter who assisted in the history. Patient is a current resident at [facility]. Earlier today, the patient states that she became nauseous at lunch and had to sit down as she "just did not feel right." A nurse at the facility evaluated her and called an ambulance due to her change in mental status. Per EMS report, patient was hypotensive with a systolic blood pressure of 93. The patient cannot recall being initially evaluated by EMS as she states that she cannot remember anything from sitting down until being driven in the ambulance. Her blood pressure normalized per report without intervention. Upon initial evaluation in the emergency department she was only oriented to person stating the year was 1717, however upon my evaluation patient is oriented to place, person, and time. She states that she is "back to normal" and her daughter states that she cannot notice a difference from her baseline. She denies any neurologic symptoms including headache, vision changes, slurring speech, paralysis, or loss of sensation during this time. She currently has no complaints and denies any recent fevers, chills, shortness of breath, chest pain , or calf tenderness. On review of system patient states that she has been nauseous over the past 2 weeks which upon further investigation could be related to starting daily Macrobid for chronic UTI prophylaxis. Patient does also endorse a previous CVA without residual effects. (Charlie Chan MD R2) Review of Systems Constitutional: DENIES: Fever, Chills Eyes: DENIES: Blurred vision, Double Vision Ears, nose, mouth, throat: COMPLAINS OF: Running Nose, DENIES: Throat pain Respiratory: DENIES: Cough, Shortness of breath Cardiovascular: DENIES: Chest pain, Syncope Gastrointestinal: COMPLAINS OF: Abdominal pain, Diarrhea, Nausea, DENIES: Constipation, Vomiting Genitourinary: DENIES: Dysuria Musculoskeletal: COMPLAINS OF: Joint pain, DENIES: Neck pain Integumentary: DENIES: Rash Hematologic/lymphatic: DENIES: Lymphadenopathy Immunologic/allergic: DENIES: Urticaria Neurologic: DENIES: Headache Psychiatric: DENIES: Mood changes (Charlie Chan MD R2) Past Family Social History Past Medical History Atrial fibrillation PVD Hypertension Dyslipidemia Hypothyroidism Previous CVA in 06/12 Past Surgical History Pacemaker insertion per exam Spinal fusion (Charlie Chan MD R2) Allergies: Coded Allergies: Sulfa (Sulfonamide Antibiotics) (Verified Allergy, Unknown, 05/11/17) mineral oil (Verified Allergy, Unknown, 05/11/17) petrolatum,hydrophilic (Verified Allergy, Unknown, 05/11/17) MRI PRECAUTION (Verified Adverse Reaction, Severe, pacemaker defibrillator , 05/11/17) dml 05/11/17 Uncoded Allergies: cranberries (Allergy, Mild, 03/14/17) cant eat due to a medication she takes Family History Mother and Father with CAD Brother with CAD Healthy sister Social History Currently living in [facility]). Needs assistance with most ADLs. Tobacco - No history reported Alcohol - No history reported Illicit - No history reported (Charlie Chan MD R2) Physical Exam Vital Signs Vital Signs Date Time Temp Pulse Resp B/P (MAP) Pulse Ox O2 Delivery O2 Flow Rate FiO2 05/11/17 15:02 71 20 167/94 (118) 95 Room Air 05/11/17 14:27 97.5 62 19 159/89 (112) 95 Room Air 05/11/17 14:27 95 Room Air 05/11/17 14:25 97.5 75 24 159/89 (112) 93 Physical Exam GENERAL: Elderly female lying in bed in no acute distress. Daughter at bedside. HEENT: Atraumatic, normocephalic with EOMI. PERRLA. MMM. No rhinorrhea. No LAD, JVD, or thyroid abnormality appreciated. RESPIRATORY: CTAB, no wheezing, crackles, or increased WOB. CARDIOVASCULAR: Regular rate and rhythm with no MGR appreciated. 2+ pulses all 4 extremities. Capillary refill less than 2 seconds. ABDOMEN: Soft, nontender, nondistended with positive bowel sounds. No masses appreciated. EXTREMITIES: No remarkable dependent edema or varicosities. No calf tenderness. SKIN: Essentially clear with no significant rash or lesions. Adequate skin turgor. NEUROLOGICAL: Speech- Fluent. No dysarthria or dysphasia. Good focus, attention, and comprehension. Cranial nerves- 2 through 12 intact. Motor/sensory/reflexes- intact Face- No facial droop. No tongue deviation. RUE- 5/5 strength in all musc groups, sensation intact. Reflexes 2+. LUE- 5/5 strength in all musc groups, sensation intact. Reflexes 2+. RLE- 5/5 strength in all musc groups, sensation intact. Reflexes 2+. LLE- 5/5 strength in all musc groups, sensation intact. Reflexes 2+. Pronator drift test-negative Babinski-negative No hemispace neglect appreciated. Laboratory Laboratory Tests Test 05/11/17 14:10 05/11/17 14:40 White Blood Count 10.7 Red Blood Count 4.93 Hemoglobin 14.4 Hematocrit 43.1 Mean Corpuscular Volume 87.4 Mean Corpuscular Hemoglobin 29.2 Mean Corpuscular Hemoglobin Concent 33.4 Red Cell Distribution Width 14.6 Platelet Count 238 Mean Platelet Volume 8.2 Neutrophils (%) (Auto) 74.3 Lymphocytes (%) (Auto) 14.5 Monocytes (%) (Auto) 10.1 Eosinophils (%) (Auto) 0.5 Basophils (%) (Auto) 0.6 Neutrophils # (Auto) 8.0 Lymphocytes # (Auto) 1.5 Monocytes # (Auto) 1.1 Eosinophils # (Auto) 0.1 Basophils # (Auto) 0.1 CBC Comment DIFF FINAL Differential Comment Prothrombin Time 16.2 Prothromb Time International Ratio 1.6 Activated Partial Thromboplast Time 27.3 Blood Urea Nitrogen 10 Creatinine 0.79 Random Glucose 134 Total Protein 7.2 Albumin 3.3 Calcium Level 10.0 Magnesium Level 1.5 Alkaline Phosphatase 100 Aspartate Amino Transf (AST/SGOT) 25 Alanine Aminotransferase (ALT/SGPT) 10 Total Bilirubin 2.0 Sodium Level 135 Potassium Level 3.9 Chloride Level 103 Carbon Dioxide Level 26.7 Anion Gap 5 Estimat Glomerular Filtration Rate 69 Total Creatine Kinase 34 Troponin I 0.05 B-Type Natriuretic Peptide 1112 Digoxin Level 1.1 Urine Color YELLOW Urine Turbidity CLEAR Urine pH 6.5 Urine Specific [place] 1.013 Urine Protein 30 Urine Glucose (UA) NEG Urine Ketones NEG Urine Occult Blood NEG Urine Nitrite NEG Urine Bilirubin NEG Urine Urobilinogen LESS THAN 2.0 Urine Leukocyte Esterase NEG Urine RBC 1 Urine WBC 1 Urine Squamous Epithelial Cells <1 Urine Mucus FEW Microscopic Urinalysis Comment CATH-CULT NOT IND (Charlie Chan MD R2) Result Diagram: 12/16/17 14105/11/17 1410 Caprini VTE Risk Assessment Caprini VTE Risk Assessment: Mod/High Risk (score >= 2) Caprini Risk Assessment Model Point Value = 1 Point Value = 2 Point Value = 3 Point Value = 5 Age 41-60 Minor surgery BMI > 25 kg/m2 Swollen legs Varicose veins or History of unexplained or recurrent spontaneous Oral contraceptives or hormone replacement Sepsis (< 1 month) Serious lung disease, including pneumonia (< 1 month) Abnormal pulmonary function Acute myocardial infarction Congestive heart failure (< 1 month) History of inflammatory bowel disease Medical patient at bed rest Age 61-74 Arthroscopic surgery Major open surgery (> 45 min) Laparoscopic surgery (> 45 min) Malignancy Confined to bed (> 72 hours) Immobilizing plaster cast Central venous access Age >= 75 History of VTE Family history of VTE Factor V Leiden Prothrombin [id number] Lupus anticoagulant Anticardiolipin antibodies Elevated serum homocysteine Heparin-induced thrombocytopenia Other congenital or acquired thrombophilia Stroke (< 1 month) Elective arthroplasty Hip, pelvis, or leg fracture Acute spinal cord injury (< 1 month) Prophylaxis Regimen Total Risk Factor Score Risk Level Prophylaxis Regimen 0-1 Low Early ambulation 2 Moderate Order ONE of the following: *Sequential Compression Device (SCD) *Heparin 5000 units SQ BID 3-4 Higher Order ONE of the following medications: *Heparin 5000 units SQ TID *Enoxaparin/Lovenox 40 mg SQ daily (WT < 150 kg, CrCl > 30 mL/min) *Enoxaparin/Lovenox 30 mg SQ daily (WT < 150 kg, CrCl > 10-29 mL/min) *Enoxaparin/Lovenox 30 mg SQ BID (WT < 150 kg, CrCl > 30 mL/min) AND/OR *Sequential Compression Device (SCD) 5 or more Highest Order ONE of the following medications: *Heparin 5000 units SQ TID (Preferred with Epidurals) *Enoxaparin/Lovenox 40 mg SQ daily (WT < 150 kg, CrCl > 30 mL/min) *Enoxaparin/Lovenox 30 mg SQ daily (WT < 150 kg, CrCl > 10-29 mL/min) *Enoxaparin/Lovenox 30 mg SQ BID (WT < 150 kg, CrCl > 30 mL/min) AND *Sequential Compression Device (SCD) (Charlie Chan MD R2) Assessment and Plan Assessment and Plan Mrs. Pan is a 86 y/o F presenting to the ED after an episode of altered mental status. Code Status DNR Discussed Condition With Jayda De Los SantosMARYCHUY (Charlie Chan MD R2) Attending Attestation THIS CASE WAS DISCUSSED WITH THE RESIDENT PHYSICIAN. I HAVE REVIEWED THE RECORD AND AGREE WITH THE ABOVE NOTE AND PLAN OF CARE WAS DISCUSSED. I HAVE AUTHORIZED THE ORDER FOR PLACEMENT IN OUT-PATIENT OBSERVATION STATUS. (Bashir Bingham MD) Problem List: (1) Altered mental status, unspecified ICD Codes: R41.82 - Altered mental status, unspecified Status: Acute Plan: Patient with episode of altered mental status and hypotension resolved without intervention. Patient with history of prior CVA. Differential: TIA/CVA versus orthostatic hypotension versus medication side effect versus dehydration -Patient is currently outside the 4.5 hour window for TPA with resolution of her symptoms -CT head: Senescent changes with moderate periventricular small vessel scheming white matter demyelination. Probable small old infarct in the left posterior parietal high convexities and small lacunar infarcts in the left basal ganglia. No acute intracranial process. -Head MRI/MRA deferred as patient with defibrillator -Carotid ultrasound: No hemodynamically significant stenosis in the carotid arteries. Moderate size visible plaque formation around the right carotid bifurcation. Mild plaque around the left carotid bifurcation. Retrograde flow in the left vertebral artery which can indicate a proximal subclavian stenosis. -Chest x-ray: No acute disease -CBC and CMP within normal limits -Orthostatic vital signs: Pending -Troponin: 0.05, trend 2 -EKG: Atrial fibrillation with a rate of 64. No acute ST elevation/depression appreciated. Trend 2 -Continue Plavix daily -PT/OT/ST and case management. -If pt passes bedside swallow, will allow for heart healthy diet. (2) Elevated brain natriuretic peptide (BNP) level ICD Codes: R79.89 - Other specified abnormal findings of blood chemistry Status: Acute Plan: Patient with no reported history of CHF with elevated BNP -BNP:1112 -Echocardiogram ordered (3) Afib ICD Codes: I48.91 - Unspecified atrial fibrillation Status: Chronic Plan: Patient with history of atrial fibrillation -Continue home digoxin 0.125 mg, sotalol -Digoxin level 1.1 -Continue warfarin 2 mg daily -INR subtherapeutic to 1.6 (4) Hypothyroidism ICD Codes: E03.9 - Hypothyroidism, unspecified Status: Chronic Plan: Patient with history of hypothyroidism -Continue Synthroid 100 g daily (5) HTN (hypertension) ICD Codes: I10 - Essential (primary) hypertension Status: Chronic Plan: Patient with history of hypertension -Continue lisinopril daily (6) HLD (hyperlipidemia) ICD Codes: E78.5 - Hyperlipidemia, unspecified Status: Chronic Plan: Patient with history of hyperlipidemia -Continue Zetia and simvastatin daily (7) Nutrition, metabolism, and development symptoms ICD Codes: R63.8 - Other symptoms and signs concerning food and fluid intake Status: Acute Plan: -Diet: Nothing by mouth until swallow evaluation, then heart healthy as tolerated -Fluids: Defer IV fluids at this time as patient does not appear dehydrated and with possible CHF exacerbation -Electrolytes: Hyponatremia to 135, continue to monitor (8) No contraindication to deep vein thrombosis (DVT) prophylaxis ICD Codes: Z78.9 - Other specified health status Status: Acute Plan: -Continue warfarin for anticoagulation -SCDs (Charlie Chan MD R2) Problem Qualifiers (1) Altered mental status, unspecified: Qualified Codes: R41.82 - Altered mental status, unspecified (2) Afib: Qualified Codes: I48.2 - Chronic atrial fibrillation Charlie Chan MD R2 May 11, 2017 17:55 Bashir Bingham MD May 12, 2017 13:48
[2017-05-11] MEDS ORDERED: PILL SPLITTER OTHER PRN (18:00)
[2017-05-11] MEDS ORDERED: GLUCAGON 1 MG/ML VIAL OTHER PRN (18:15)
[2017-05-11] MEDS ORDERED: DEXTROSE 50% IN WATER 50 ML VIAL(D50) IV PUSH PRN (18:15)
[2017-05-11] MEDS ORDERED: ACETAMINOPHEN 325 MG TAB PO PRN (18:30)
--- NOTE | 2017-05-11 20:13 | RADRPT ---
EXAM DATE/TIME: 05/11/2017 18:22 [facility] COMPARISON: No previous studies available for comparison. INDICATIONS : Cerebrovascular accident. MEDICAL HISTORY : Hypercholesterolemia. Hypertension. Hypothyroid. Cerebrovascular accident. Atrial fibrillation. Abdominal aneurysm. SURGICAL HISTORY : Hysterectomy. Defibrillator. Pacemaker. Back surgery. ENCOUNTER: Initial ACUITY: 1 day PAIN SCORE: 3/10 LOCATION: Bilateral neck PEAK SYSTOLIC VELOCITIES (cm/sec): ICA/CCA RATIO: Right: 1.4 Left: 1.6 ICA: Right: 54.8 Left: 56.8 CCA: Right: 40.1 Left: 34.8 ECA: Right: 42.7 Left: 37.4 VERTEBRAL: Right: 59.2 antegrade Left: 55.1 retrograde Elevated flow velocities and ICA/CCA ratios have been found to correlate with increased degrees of vessel stenosis, calculated as percentage of diameter relative to a normal segment of distal ICA/CCA FINDINGS: RIGHT CAROTID: No significant stenosis is visualized. The waveforms are within normal limits. LEFT CAROTID: No significant stenosis is visualized. The waveforms are within normal limits. VERTEBRAL ARTERIES: Antegrade flow is seen in both vertebral arteries. MISCELLANEOUS: None. CONCLUSION: 1. No hemodynamically significant stenosis in the carotid arteries. Moderate size visible plaque form ation around the right carotid bifurcation. Mild plaque around the left carotid bifurcation. 2. Retrograde flow left vertebral artery which can indicate a proximal subclavian stenosis. Joseph Connors MD on May 11, 2017 at 20:10 Board Certified Radiologist. This report was verified electronically.
[2017-05-11] MEDS: EZETIMIBE 10 MG TAB PO SCH (20:37)
[2017-05-11] MEDS: SOTALOL HCL 80 MG TAB PO SCH (20:37)
[2017-05-11] MEDS: SUCRALFATE 1 GM TAB PO SCH (20:37)
[2017-05-11] MEDS: WARFARIN SOD 2 MG TAB PO SCH (20:38)
[2017-05-11] MEDS: SODIUM CHLORIDE 0.9% FLUSH 10 ML FLUSH IV FLUSH SCH (20:38)
[2017-05-11] MEDS: INSULIN ASPART SUPPLEMENTAL SCALE SQ SCH (21:00)
[2017-05-11] MEDS ORDERED: NON-FORMULARY DRUG (Simvastatin 80 MG) PO SCH (21:00)
[2017-05-11] MEDS ORDERED: [UNRECOGNIZED DRUG - OTHER] PO SCH (21:00)
--- NOTE | 2017-05-11 21:10 | EKG ---
Date Performed: 05/11/2017 Time Performed: 14:28:47 PTAGE: 86 years EKG: ATRIAL FIBRILLATION WITHH NONSPECIFIC INTRAVENTRICULAR CONDUCTION DELAY, T-WAVE ABNORMALITY , CONSIDER ANTEROLATERAL AND INFERIOR ISCHEMIA ABNORMAL ECG PREVIOUS TRACING : 03/14/2017 16.07 DOCTOR: Ramana Gregorio Interpretating Date/Time 05/11/2017 21:08:38
[2017-05-11 21:31] LABS: CREATINE KINASE 29 U/L (26-192)
[2017-05-12] VITALS (13 sets, daily range): BP systolic 104–162; BP diastolic 62–96; PULSE 60–86; RESP 17–18; TEMP 97.5–98; O2SAT 93–98
[2017-05-12 02:17] LABS: BASOPHIL # 0.1 TH/MM3 (0-0.2); BASOPHIL % 0.6 % (0.0-2.0); EOSINOPHIL # 0.2 TH/MM3 (0-0.4); EOSINOPHIL % 1.7 % (0.0-4.0); HEMO FLAGS DIFF FINAL; LYMPH % 20.2 % (9.0-44.0); MEAN CELL VOLUME 86.9 FL (80.0-100.0); MEAN CORPUSCULAR HEMOGLOBIN 28.7 PG (27.0-34.0); MEAN CORPUSCULAR HGB CONC 33.1 % (32.0-36.0); MONO % 15.5 % (0.0-8.0); PLATELET COUNT 220 TH/MM3 (150-450); RED BLOOD COUNT 4.49 MIL/MM3 (4.00-5.30); RED CELL DISTRIBUTION WIDTH 14.7 % (11.6-17.2); WHITE BLOOD COUNT 9.7 TH/MM3 (4.0-11.0)
[2017-05-12 03:48] LABS: ALT (GPT) 10 U/L (10-53); ANION GAP 7 MEQ/L (5-15); AST (GOT) 20 U/L (15-37); BICARBONATE 26.8 MEQ/L (21.0-32.0); BLOOD UREA NITROGEN 12 MG/DL (7-18); CHLORIDE 106 MEQ/L (98-107); GLOMERULAR FILTRATION RATE 66 ML/MIN (>89); POTASSIUM 3.9 MEQ/L (3.5-5.1); SODIUM (NA) 140 MEQ/L (136-145)
[2017-05-12 03:52] LABS: ALKALINE PHOSPHATASE 87 U/L (45-117); HDL CHOLESTEROL 37.4 MG/DL (40.0-60.0); LDL CHOLESTEROL 48 MG/DL (0-99); TOTAL BILIRUBIN ADULT 1.5 MG/DL (0.2-1.0)
[2017-05-12 04:08] LABS: CREATINE KINASE 25 U/L (26-192)
[2017-05-12] MEDS: LEVOTHYROXINE SODIUM 100 MCG TAB PO SCH (05:11)
[2017-05-12] MEDS: INSULIN ASPART SUPPLEMENTAL SCALE SQ SCH ×4 (08:00→21:00)
--- NOTE | 2017-05-12 08:12 | HHI.FPPN ---
Subjective Remarks FM Attending Note: Patient seen and examined. S: Chart and all resident physician notes reviewed. In summary this is a 86 year old female who was admitted with an admission diagnosis of Ams, Elevated Bnp. This patient resides at [facility]. She reportedly became nauseous at lunch and had to sit down as she "just did not feel right." A nurse at the facility evaluated her and called an ambulance due to her change in mental status. Per EMS report, patient was hypotensive with a systolic blood pressure of 93. Initial disorientation was noted in the ER but when she was seen by the admitting team she had returned to her baseline with orientation x 3. This AM when seen she was awakened from sleep. She was awake and alert but did exhibit some short term memory problems which she attributed from being awakened suddenly form sleep. She denies any symptoms this AM. This patient does have chronic atrial fibrillation with a pacemaker. She is on warfarin. No recent falls have been noted. Objective Vitals Vital Signs Date Time Temp Pulse Resp B/P (MAP) Pulse Ox O2 Delivery O2 Flow Rate FiO2 05/12/17 06:41 97.8 86 17 132/92 (105) 94 05/12/17 04:22 97.9 60 17 110/62 (78) 96 05/12/17 04:09 63 05/12/17 00:06 97.9 61 17 104/62 (76) 94 05/12/17 00:00 63 05/11/17 23:00 70 05/11/17 22:05 65 17 131/88 (102) 95 05/11/17 19:40 98.0 66 17 131/73 (92) 95 05/11/17 19:37 95 05/11/17 18:57 97.9 65 18 138/70 (92) 96 05/11/17 18:00 05/11/17 17:00 68 20 171/84 (113) 94 Room Air 05/11/17 16:00 68 20 157/87 (110) 95 Room Air 05/11/17 15:45 68 19 187/81 (116) 96 Room Air 05/11/17 15:02 71 20 167/94 (118) 95 Room Air 05/11/17 14:27 97.5 62 19 159/89 (112) 95 Room Air 05/11/17 14:27 95 Room Air 05/11/17 14:25 97.5 75 24 159/89 (112) 93 I/O 05/11/17 05/11/17 05/11/17 05/12/17 05/12/17 05/12/17 07:00 15:00 23:00 07:00 15:00 23:00 Intake Total 600 ml Balance 600 ml Intake Oral 600 ml Result Diagram: 05/12/17 0200 05/12/17 0200 Other Results Item Value Date Time Hemoglobin A1c 5.7 % 05/11/172029 Calcium Level 10.0 MG/DL 05/11/17 1410 Magnesium Level 1.5 MG/DL 05/11/17 1410 Total Bilirubin 2.0 MG/DL H 05/11/17 1410 Aspartate Amino Transf (AST/SGOT) 25 U/L 05/11/17 1410 Alanine Aminotransferase (ALT/SGPT) 10 U/L 05/11/17 1410 Alkaline Phosphatase 100 U/L 05/11/17 1410 Total Creatine Kinase 34 U/L 05/11/17 1410 Troponin I 0.05 NG/ML 05/11/17 2030 Troponin I 0.05 NG/ML 05/12/17 0200 Triglycerides Level 69 MG/DL 05/12/17 0200 Cholesterol Level 99 MG/DL L 05/12/17 0200 LDL Cholesterol 48 MG/DL 05/12/17 0200 HDL Cholesterol 37.4 MG/DL L 05/12/17 0200 Cholesterol/HDL Ratio 2.64 RATIO 05/12/17 0200 Prothrombin Time 16.2 SEC H 05/11/17 1410 Prothromb Time International Ratio 1.6 RATIO 05/11/17 1410 Activated Partial Thromboplast Time 27.3 SEC 05/11/17 1410 Urine Specific [place] 1.013 05/11/17 1440 Urine Occult Blood NEG 05/11/17 1440 Urine Nitrite NEG 05/11/17 1440 Urine Urobilinogen LESS THAN 2.0 MG/DL 05/11/17 1440 Urine Leukocyte Esterase NEG 05/11/17 1440 Digoxin Level 1.1 NG/ML 05/11/17 1410 Imaging Last [address] 05/11/17 1403 Signed Impressions: Service Date/Time: Thursday, May 11, 2017 15:20 - CONCLUSION: 1. Senescent changes with moderate periventricular small vessel scheming white matter demyelination. 2. Probable small old focal infarct in the left posterior parietal high convexities and small lacunar infarcts in the left basal ganglia. 3. No acute intracranial normality. Beny Cevallos MD Chest X-Ray 05/11/17 1403 Signed Impressions: Service Date/Time: Thursday, May 11, 2017 14:37 - CONCLUSION: 1. No acute cardiopulmonary disease. Beny Cevallos MD Carotid Artery Ultrasound 05/11/17 0000 Signed Impressions: Service Date/Time: Thursday, May 11, 2017 18:22 - CONCLUSION: 1. No hemodynamically significant stenosis in the carotid arteries. Moderate size visible plaque formation around the right carotid bifurcation. Mild plaque around the left carotid bifurcation. 2. Retrograde flow left vertebral artery which can indicate a proximal subclavian stenosis. Joseph Connors MD Objective Remarks O. CONSTITUTIONAL/GEN: normally nourished, in NAD. EYES: conjunctiva normal, PERRLA, EOMI. ENT: Mouth and pharynx normal. NECK: thyroid midline, carotids symmetrical. LUNGS: clear A-P, respiratory effort is normal. CARDIOVASCULAR: IRR. No significant edema. GI/ABD: soft without masses, without organomegaly. NEURO: No focal deficits. SKIN: color normal, no rashes noted. HEME/LYMPH: no bruising, petechia or significant adenopathy MUSC: back is normal in appearance. Extremities are normal in appearance. PSYCH/MENTAL STATUS: Awake and sleepy when awoken this AM. Some short term memory changes. A/P Assessment and Plan Mrs. Pan is a 86 y/o F presenting to the ED after an episode of altered mental status. Problem List: (1) Altered mental status, unspecified ICD Codes: R41.82 - Altered mental status, unspecified Status: Acute Plan: Patient with episode of altered mental status and hypotension resolved without intervention. Patient with history of prior CVA. Differential: TIA/CVA versus orthostatic hypotension versus medication side effect versus dehydration -Patient is currently outside the 4.5 hour window for TPA with resolution of her symptoms -CT head: Senescent changes with moderate periventricular small vessel scheming white matter demyelination. Probable small old infarct in the left posterior parietal high convexities and small lacunar infarcts in the left basal ganglia. No acute intracranial process. -Head MRI/MRA deferred as patient with defibrillator -Carotid ultrasound: No hemodynamically significant stenosis in the carotid arteries. Moderate size visible plaque formation around the right carotid bifurcation. Mild plaque around the left carotid bifurcation. Retrograde flow in the left vertebral artery which can indicate a proximal subclavian stenosis. -Chest x-ray: No acute disease -CBC and CMP within normal limits -Orthostatic vital signs: Pending -Troponin: 0.05, trend 2 -EKG: Atrial fibrillation with a rate of 64. No acute ST elevation/depression appreciated. Trend 2 -Continue Plavix daily -PT/OT/ST and case management. -If pt passes bedside swallow, will allow for heart healthy diet. 05/12/17 by the time this patient was admitted her acute mental status changes had resolved. She did appear to have some orthostasis. Her BNP level was high and she does not appear to have acute findings of CHF. Her INR was slightly sub- therapeutic. Will continue to observe. PT evaluation. Will check echocardiogram and adjust warfarin dosing. (2) Elevated brain natriuretic peptide (BNP) level ICD Codes: R79.89 - Other specified abnormal findings of blood chemistry Status: Acute Plan: Patient with no reported history of CHF with elevated BNP -BNP:1112 -Echocardiogram ordered 05/12/17 check echocardiogram. No current finding to support acute CHF. (3) Afib ICD Codes: I48.91 - Unspecified atrial fibrillation Status: Chronic Plan: Patient with history of atrial fibrillation -Continue home digoxin 0.125 mg, sotalol -Digoxin level 1.1 -Continue warfarin 2 mg daily -INR subtherapeutic to 1.6 (4) Hypothyroidism ICD Codes: E03.9 - Hypothyroidism, unspecified Status: Chronic Plan: Patient with history of hypothyroidism -Continue Synthroid 100 g daily (5) HTN (hypertension) ICD Codes: I10 - Essential (primary) hypertension Status: Chronic Plan: Patient with history of hypertension -Continue lisinopril daily (6) HLD (hyperlipidemia) ICD Codes: E78.5 - Hyperlipidemia, unspecified Status: Chronic Plan: Patient with history of hyperlipidemia -Continue Zetia and simvastatin daily (7) Nutrition, metabolism, and development symptoms ICD Codes: R63.8 - Other symptoms and signs concerning food and fluid intake Status: Acute Plan: -Diet: Nothing by mouth until swallow evaluation, then heart healthy as tolerated -Fluids: Defer IV fluids at this time as patient does not appear dehydrated and with possible CHF exacerbation -Electrolytes: Hyponatremia to 135, continue to monitor (8) No contraindication to deep vein thrombosis (DVT) prophylaxis ICD Codes: Z78.9 - Other specified health status Status: Acute Plan: -Continue warfarin for anticoagulation -SCDs Problem Qualifiers (1) Altered mental status, unspecified: Qualified Codes: R41.82 - Altered mental status, unspecified (2) Afib: Qualified Codes: I48.2 - Chronic atrial fibrillation Bashir Bingham MD May 12, 2017 08:12
[2017-05-12] MEDS: SUCRALFATE 1 GM TAB PO SCH ×2 (09:49→21:11)
[2017-05-12] MEDS: PANTOPRAZOLE SOD 20 MG DELAYED RELEASE TAB PO SCH (09:49)
[2017-05-12] MEDS: ISOSORBIDE MONONITRATE 20 MG TAB PO SCH (09:49)
[2017-05-12] MEDS: POTASSIUM CHLORIDE 10 MEQ CONTROLLED RELEASE TAB PO SCH (09:50)
[2017-05-12] MEDS: SOTALOL HCL 80 MG TAB PO SCH ×2 (09:50→21:11)
[2017-05-12] MEDS: CLOPIDOGREL 75 MG TAB PO SCH (09:50)
[2017-05-12] MEDS: LISINOPRIL 5 MG TAB PO SCH (09:51)
[2017-05-12] MEDS: DIGOXIN 0.125 MG TAB PO SCH (09:51)
[2017-05-12 10:52] LABS: HEMOGLOBIN A1a 0.9 %; HEMOGLOBIN Ao 85.8 %; HEMOGLOBIN LA1C 1.7 %; HEMOGLOBIN P3 3.6 %
[2017-05-12] MEDS: WARFARIN SOD 2 MG TAB PO SCH (19:52)
[2017-05-12] MEDS: SODIUM CHLORIDE 0.9% FLUSH 10 ML FLUSH IV FLUSH SCH ×2 (19:52→21:12)
[2017-05-12] MEDS: EZETIMIBE 10 MG TAB PO SCH (21:11)
[2017-05-13] VITALS (15 sets, daily range): BP systolic 132–236; BP diastolic 72–121; PULSE 62–89; RESP 16–18; TEMP 98–100; O2SAT 94–99
[2017-05-13] MEDS: LEVOTHYROXINE SODIUM 100 MCG TAB PO SCH (05:25)
[2017-05-13 05:27] LABS: AUTOMATED NEUTROPHIL # 6.3 TH/MM3 (1.8-7.7); BASOPHIL # 0.1 TH/MM3 (0-0.2); BASOPHIL % 0.7 % (0.0-2.0); EOSINOPHIL # 0.1 TH/MM3 (0-0.4); EOSINOPHIL % 1.5 % (0.0-4.0); HEMATOCRIT 44.6 % (35.0-46.0); HEMO FLAGS DIFF FINAL; LYMPH % 15.9 % (9.0-44.0); LYMPHOCYTE # 1.4 TH/MM3 (1.0-4.8); MEAN CELL VOLUME 86.8 FL (80.0-100.0); MEAN CORPUSCULAR HEMOGLOBIN 29.4 PG (27.0-34.0); MEAN CORPUSCULAR HGB CONC 33.9 % (32.0-36.0); MONO % 10.3 % (0.0-8.0); NEUT % 71.6 % (16.0-70.0); PLATELET COUNT 245 TH/MM3 (150-450); RED BLOOD COUNT 5.14 MIL/MM3 (4.00-5.30); RED CELL DISTRIBUTION WIDTH 14.2 % (11.6-17.2); WHITE BLOOD COUNT 8.8 TH/MM3 (4.0-11.0)
[2017-05-13 05:54] LABS: ALT (GPT) 12 U/L (10-53); ANION GAP 8 MEQ/L (5-15); AST (GOT) 18 U/L (15-37); BICARBONATE 26.7 MEQ/L (21.0-32.0); BLOOD UREA NITROGEN 11 MG/DL (7-18); CHLORIDE 103 MEQ/L (98-107); GLOMERULAR FILTRATION RATE 80 ML/MIN (>89); POTASSIUM 3.6 MEQ/L (3.5-5.1); SODIUM (NA) 138 MEQ/L (136-145)
[2017-05-13 05:55] LABS: ALKALINE PHOSPHATASE 101 U/L (45-117); TOTAL BILIRUBIN ADULT 1.6 MG/DL (0.2-1.0)
[2017-05-13] MEDS: INSULIN ASPART SUPPLEMENTAL SCALE SQ SCH ×4 (08:00→21:00)
[2017-05-13] MEDS: SODIUM CHLORIDE 0.9% FLUSH 10 ML FLUSH IV FLUSH SCH ×2 (08:52→21:00)
[2017-05-13] MEDS: POTASSIUM CHLORIDE 10 MEQ CONTROLLED RELEASE TAB PO SCH (09:00)
[2017-05-13] MEDS: CLOPIDOGREL 75 MG TAB PO SCH (09:00)
[2017-05-13] MEDS: LISINOPRIL 5 MG TAB PO SCH (09:00)
[2017-05-13] MEDS: PANTOPRAZOLE SOD 20 MG DELAYED RELEASE TAB PO SCH (09:00)
[2017-05-13] MEDS: SUCRALFATE 1 GM TAB PO SCH ×2 (09:00→21:00)
[2017-05-13] MEDS: DIGOXIN 0.125 MG TAB PO SCH (09:00)
[2017-05-13] MEDS: ISOSORBIDE MONONITRATE 20 MG TAB PO SCH (09:00)
[2017-05-13] MEDS: SOTALOL HCL 80 MG TAB PO SCH ×2 (09:00→21:00)
[2017-05-13] MEDS ORDERED: ENALAPRILAT 2.5 MG/2 ML VIAL IV PUSH ONE (10:00)
--- NOTE | 2017-05-13 12:11 | HHI.FPPN ---
Subjective Remarks Patient states that she is doing fine this morning. She feels a little "queasy" in her stomach. She is nauseous and feels like she is about to vomit. Her last bowel movement was yesterday. No fevers or chills, no chest chest pain, no shortness of breath, no abdominal pain. Blood pressures have been high in the 200-230s/100-110s this morning. Nurse states that the patient has been too drowsy to take her medications and also seems to be altered mentally. (Yasmine Chery MD R1) Objective Vitals Vital Signs Date Time Temp Pulse Resp B/P (MAP) Pulse Ox O2 Delivery O2 Flow Rate FiO2 05/13/17 11:13 98.0 75 18 220/92 (134) 95 05/13/17 09:05 78 16 96 05/13/17 08:44 98.0 85 18 210/112 (144) 95 05/13/17 07:30 236/102 (146) 05/13/17 07:08 98.3 76 16 220/110 (146) 95 05/13/17 03:40 73 05/13/17 03:13 98.0 78 18 132/72 (92) 95 05/12/17 23:55 80 05/12/17 23:20 97.9 78 18 125/84 (98) 98 126/90 (102) 115/75 (88) 05/12/17 22:57 96 21 05/12/17 20:00 78 05/12/17 19:59 98.0 75 18 129/77 (94) 95 05/12/17 16:00 97.5 71 18 139/83 (101) 97 I/O 05/12/17 05/12/17 05/12/17 05/13/17 05/13/17 05/13/17 07:00 15:00 23:00 07:00 15:00 23:00 Intake Total 600 ml 480 ml 480 ml Balance 600 ml 480 ml 480 ml Intake Oral 600 ml 480 ml 480 ml # Voids 2 1 # Bowel Movements 1 (Yasmine Chery MD R1) Result Diagram: 05/13/17 0442 05/13/17 0442 Imaging Last Impressions Head CT 05/11/17 1403 Signed Impressions: Service Date/Time: Thursday, May 11, 2017 15:20 - CONCLUSION: 1. Senescent changes with moderate periventricular small vessel scheming white matter demyelination. 2. Probable small old focal infarct in the left posterior parietal high convexities and small lacunar infarcts in the left basal ganglia. 3. No acute intracranial normality. Beny Cevallos MD Chest X-Ray 05/11/17 1403 Signed Impressions: Service Date/Time: Thursday, May 11, 2017 14:37 - CONCLUSION: 1. No acute cardiopulmonary disease. Beny Cevallos MD Carotid Artery Ultrasound 05/11/17 0000 Signed Impressions: Service Date/Time: Thursday, May 11, 2017 18:22 - CONCLUSION: 1. No hemodynamically significant stenosis in the carotid arteries. Moderate size visible plaque formation around the right carotid bifurcation. Mild plaque around the left carotid bifurcation. 2. Retrograde flow left vertebral artery which can indicate a proximal subclavian stenosis. Joseph Connors MD Objective Remarks GENERAL: Well-nourished, well-developed patient laying in bed, in no acute distress. SKIN: Warm and dry. HEAD: Normocephalic. EYES: No scleral icterus. No injection or drainage. NECK: Supple, trachea midline. No JVD or lymphadenopathy. CARDIOVASCULAR: Irregular rate and rhythm without murmurs, gallops, or rubs. RESPIRATORY: Breath sounds equal bilaterally. No accessory muscle use. GASTROINTESTINAL: Abdomen soft, non-tender, nondistended. EXTREMITIES: No cyanosis, or edema. NEUROLOGICAL: Awake, alert, and oriented x 2 (place and time). Non-focal, Strength 5/5 in bilateral UEs, 4/5 in bilateral LEs, no facial droop. (Yasmine Chery MD R1) A/P Assessment and Plan Mrs. Pan is a 86 y/o F presenting to the ED after an episode of altered mental status. Discharge Planning Once patient's BP has stabilized and AMS has resolved. (Yasmine Chery MD R1) Attending Attestation Patient seen and examined. Case reviewed and discussed with the resident team. Agree with plan of care as discussed with me and documented in the resident note. (Bashir Bingham MD) Problem List: (1) Altered mental status, unspecified ICD Codes: R41.82 - Altered mental status, unspecified Status: Acute Plan: Patient with episode of altered mental status and hypotension resolved without intervention. Patient with history of prior CVA. Differential: TIA/CVA versus orthostatic hypotension versus medication side effect versus dehydration * Patient was outside the 4.5 hour window for TPA with resolution of her symptoms * CT head: Senescent changes with moderate periventricular small vessel scheming white matter demyelination. Probable small old infarct in the left posterior parietal high convexities and small lacunar infarcts in the left basal ganglia. No acute intracranial process. * Head MRI/MRA deferred as patient with defibrillator * Carotid ultrasound: No hemodynamically significant stenosis in the carotid arteries. Moderate size visible plaque formation around the right carotid bifurcation. Mild plaque around the left carotid bifurcation. Retrograde flow in the left vertebral artery which can indicate a proximal subclavian stenosis. * Chest x-ray: No acute disease * CBC and CMP within normal limits at admission * Orthostatic vital signs: shows some orthostasis from sitting to standing * Troponin: 0.05, 0.05, 0.05-> 0.04 this AM * EKG: Atrial fibrillation with a rate of 64. * Continue Plavix daily * PT/OT/ST and case management. * Continue to monitor INR. (2) Elevated brain natriuretic peptide (BNP) level ICD Codes: R79.89 - Other specified abnormal findings of blood chemistry Status: Acute Plan: Patient with no reported history/sx of CHF with elevated BNP at 1112 upon admission. * BNP increased to 1435 this AM * Echocardiogram ordered and still pending (3) Afib ICD Codes: I48.91 - Unspecified atrial fibrillation Status: Chronic Plan: Patient with history of atrial fibrillation * Continue home digoxin 0.125 mg, sotalol * Digoxin level 1.1 * Continue warfarin 2 mg daily * INR subtherapeutic to 1.6 will continue to monitor (4) Hypothyroidism ICD Codes: E03.9 - Hypothyroidism, unspecified Status: Chronic Plan: Patient with history of hypothyroidism * Continue Synthroid 100 g daily (5) HTN (hypertension) ICD Codes: I10 - Essential (primary) hypertension Status: Chronic Plan: Patient with history of hypertension * Continue at home lisinopril 5mg daily (6) HLD (hyperlipidemia) ICD Codes: E78.5 - Hyperlipidemia, unspecified Status: Chronic Plan: Patient with history of hyperlipidemia * Continue Zetia and simvastatin daily (7) Nutrition, metabolism, and development symptoms ICD Codes: R63.8 - Other symptoms and signs concerning food and fluid intake Status: Acute Plan: Fluids: tolerating PO Electrolytes: Hypercalcemia noted, will continue to monitor Nutrition: heart-healthy diet DVT Prophylaxis: Early ambulation. Warfarin, adjust as needed GI Prophylaxis: none indicated at this time (8) No contraindication to deep vein thrombosis (DVT) prophylaxis ICD Codes: Z78.9 - Other specified health status Status: Acute Plan: -Continue warfarin for anticoagulation (Yasmine Chery MD R1) Problem Qualifiers (1) Altered mental status, unspecified: Qualified Codes: R41.82 - Altered mental status, unspecified (2) Afib: Qualified Codes: I48.2 - Chronic atrial fibrillation Yasmine Chery MD R1 May 13, 2017 12:11 Bashir Bingham MD May 15, 2017 08:48
[2017-05-13] MEDS ORDERED: LABETALOL INJ 500 MG in SODIUM CHLORIDE 0.9% INJ 150 ML IV PRN (13:00)
--- NOTE | 2017-05-13 14:20 | HHI.PR ---
Addendum to Inpatient Note Addendum Reason: Additional Documentation Additional Information Notified about patient BP dropping to ~120 from 220; had only been on labetalol IV for about a minute. Arrived at patient bedside ~1400. At that time, patient BP 157/80s, patient would not awaken to sternal rub. Withdrew from pain with LUE and moved LLE spontaneously, but no movement of RLE and no muscle tone of RUE. A/P Possible effect of rapid BP lowering, but would not expect this given her hypertension this morning was acute not chronic. Subtherapeutic INR on admission , possibly this is acute CVA versus simply impaired sleep overnight. - CT head stat - Stroke alert protocol arvinw Eder Barrera Dr., MD May 13, 2017 14:20
[2017-05-13] MEDS ORDERED: IODIXANOL 320 MG/ML 10 ML VIAL (for Rad CT) IVCONTRAST ONE (14:51)
--- NOTE | 2017-05-13 14:59 | RADRPT ---
EXAM DATE/TIME: 05/13/2017 14:36 [facility] COMPARISON: CT BRAIN W/O CONTRAST, May 11, 2017, 15:20. INDICATIONS : Stroke alert, left sided gaze RADIATION DOSE: 25.49 CTDIvol (mGy) This report was to Dr. Carrion at 1438 MEDICAL HISTORY : Cardiovascular disease. Hypertension. SURGICAL HISTORY : Pacemaker. Hysterectomy. ENCOUNTER: Initial ACUITY: 1 day PAIN SCALE: Non-responsive LOCATION: cranial TECHNIQUE: Multiple contiguous axial images were obtained of the head. Using automated exposure control and adj ustment of the mA and/or kV according to patient size, radiation dose was kept as low as reasonably a chievable to obtain optimal diagnostic quality images. DICOM format image data is available electro nically for review and comparison. FINDINGS: CEREBRUM: The ventricles are normal for age. No evidence of midline shift, mass lesion, hemorrhage or acute in farction. No extra-axial fluid collections are seen. Moderate calcific vascular disease is evident. POSTERIOR FOSSA: The cerebellum and brainstem are intact. The 4th ventricle is midline. The cerebellopontine angle i s unremarkable. EXTRACRANIAL: The visualized portion of the orbits is intact. SKULL: The calvaria is intact. No evidence of skull fracture. CONCLUSION: Negative for acute hemorrhage. Moderate calcific vascular disease. CT is pending. Patrice Wilson MD FACR on May 13, 2017 at 14:56 Board Certified Radiologist. This report was verified electronically.
--- NOTE | 2017-05-13 15:06 | ECHRPT ---
Indication: CVA/TIA CONCLUSIONS Normal left ventricular size. Severe left ventricular hypertrophy more prominent in the septum. The left ventricular systolic function is normal with an estimated ejection fraction of 55%. The left atrial size is upper limits of normal. Mitral annular calcification is present. Moderate thickening of the mitral valve leaflet. Mild mitral valve regurgitation. Moderate thickening of the aortic valve leaflets. Mild aortic valve regurgitation. There is moderate tricuspid regurgitation. BP: 235 / 102 HR: 76 Rhythm: MEASUREMENTS (Male / Female) Normal Values Technical Quality:Good 2D ECHO LV Diastolic Diameter PLAX 3.6 cm 4.2 - 5.9 / 3.9 - 5.3 cm LV Systolic Diameter PLAX 2.9 cm IVS Diastolic Thickness 2.1 cm 0.6 - 1.0 / 0.6 - 0.9 cm LVPW Diastolic Thickness 0.8 cm 0.6 - 1.0 / 0.6 - 0.9 cm LV Relative Wall Thickness 0.8 LVOT Diameter 1.9 cm LA Systolic Diameter LX 4.2 cm 3.0 - 4.0 / 2.7 - 3.8 cm DOPPLER AV Peak Velocity 184.8 cm/s AV Peak Gradient 13.7 mmHg AV Mean Gradient 7.0 mmHg AV Velocity Time Integral 37.3 cm LVOT Peak Velocity 96.6 cm/s LVOT Peak Gradient 3.7 mmHg LVOT Velocity Time Integral 21.9 cm LVOT Cardiac Index 3050.4 cm/minm AV Area Cont Eq vti 1.7 cm AV Area Cont Eq pk 1.5 cm MV Peak Velocity 118.0 cm/s MV Peak Gradient 5.6 mmHg MV Mean Velocity 69.5 cm/s MV Mean Gradient 2.5 mmHg MR Peak Velocity 546.0 cm/s MR Peak Gradient 119.2 mmHg Mitral E Point Velocity 86.4 cm/s Mitral A Point Velocity 40.5 cm/s Mitral E to A Ratio 2.1 TR Peak Velocity 332.0 cm/s TR Peak Gradient 44.1 mmHg Right Atrial Pressure 10.0 mmHg Pulmonary Artery Systolic Pressu 54.1 mmHg Right Ventricular Systolic Press 54.1 mmHg FINDINGS LEFT VENTRICLE Normal left ventricular size. Severe left ventricular hypertrophy more prominent in the septum. The left ventricular systolic function is normal with an estimated ejection fraction of 55%. RIGHT VENTRICLE Normal right ventricular size and systolic function. LEFT ATRIUM The left atrial size is upper limits of normal. RIGHT ATRIUM The right atrial size is normal. ATRIAL SEPTUM Normal atrial septal thickness without atrial level shunting by limited color doppler interrogation. AORTA The aortic root and proximal ascending aorta are normal in size on limited imaging. MITRAL VALVE Mitral annular calcification is present. Moderate thickening of the mitral valve leaflet. Mild mitral valve regurgitation. AORTIC VALVE Moderate thickening of the aortic valve leaflets. Mild aortic valve regurgitation. TRICUSPID VALVE There is moderate tricuspid regurgitation. PULMONARY VALVE No pulmonary valve regurgitation or stenosis. VESSELS The inferior vena cava is normal in size. PERICARDIUM No pericardial effusion. Qamar Barone MD, FACC (Electronically Signed) Final Date:13 May 2017 15:05
--- NOTE | 2017-05-13 15:19 | RADRPT ---
EXAM DATE/TIME: 05/13/2017 14:36 [facility] COMPARISON: CTA CAROTID ARTERIES W 3D RECON, May 13, 2017, 14:36. INDICATIONS : Stroke alert, left sided gaze IV CONTRAST: 99 cc Visipaque (iodixanol) IV ; Cumulative dose for multiple exams. RADIATION DOSE: 25.21 CTDIvol (mGy) ; Combined studies MEDICAL HISTORY : Cardiovascular disease. Hypertension. SURGICAL HISTORY : Hysterectomy. Pacemaker. ENCOUNTER: Initial ACUITY: 1 day PAIN SCALE: 0/10 LOCATION: cranial TECHNIQUE: Volumetric scanning was performed using a multi-row detector CT scanner. The data was post processed with a variety of visualization algorithms including full volume maximum intensity projection, multi -planar sliding thin slab reformation, curved planar reformation, and surface rendering techniques. Using automated exposure control and adjustment of the mA and/or kV according to patient size, radiat ion dose was kept as low as reasonably achievable to obtain optimal diagnostic quality images. DICO M format image data is available electronically for review and comparison. FINDINGS: There is excellent visualization of the major intracranial arteries out to the second-order branch ve ssels. There is no evidence for aneurysm, vessel truncation or stenosis, and no evidence for vascula r malformation. Calcified atherosclerotic plaque is seen involving the intercavernous ICAs bilaterall y as well as the vertebral arteries at the level of the foramen magnum. No hemodynamically significan t stenosis felt present. CONCLUSION: No filling defects to suggest embolus or thrombus. Calcified atherosclerotic plaque as detailed above . Dustin Paige Jr., MD on May 13, 2017 at 15:06 Board Certified Radiologist. This report was verified electronically.
[2017-05-13 15:22] LABS: I-STAT POTASSIUM 3.5 MMOL/L (3.5-4.9)
--- NOTE | 2017-05-13 15:23 | RADRPT ---
EXAM DATE/TIME: 05/13/2017 14:36 [facility] COMPARISON: No previous studies available for comparison. INDICATIONS : Stroke alert, left sided gaze IV CONTRAST: 100 cc Visipaque (iodixanol) IV RADIATION DOSE: 25.21 CTDIvol (mGy) ; Combined studies MEDICAL HISTORY : Hypertension. Cardiovascular disease SURGICAL HISTORY : Hysterectomy. Pacemaker. ENCOUNTER: Initial ACUITY: 1 day PAIN SCALE: 0/10 LOCATION: neck Elevated flow velocities and ICA/CCA ratios have been found to correlate with increased degrees of vessel stenosis, calculated as percentage of diameter relative to a normal segment of distal ICA/CCA. TECHNIQUE: Volumetric scanning was performed using a multirow detector CT scanner. The data was post processed with a variety of visualization algorithms including full-volume maximum intensity projection, multip lanar sliding thin-slab reformation, curved-planar reformation, and surface-rendering techniques. Us ing automated exposure control and adjustment of the mA and/or kV according to patient size, radiatio n dose was kept as low as reasonably achievable to obtain optimal diagnostic quality images. DICOM f ormat image data is available electronically for review and comparison. FINDINGS: AORTIC ARCH: There is a three-vessel arch. The left subclavian artery is occluded approximately 1 cm cephalad to i ts origin. There is differing opacification of the peripheral left subclavian artery and left vertebr al artery secondary to retrograde flow down the left vertebral artery. RIGHT CAROTID: Calcified plaque involving the carotid bulb and proximal ICA without luminal narrowing utilizing NASC ET criteria. LEFT CAROTID: Calcified plaque involving the carotid bulb and proximal ICA without luminal narrowing utilizing NASC ET criteria. VERTEBRALS: There is differing opacification of the vertebral arteries with the contrast column suggesting retrog rade flow down the left vertebral artery. Both vertebral arteries are patent and equal in size. CONCLUSION: 1. Patent carotid arteries bilaterally. 2. 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 3. A wet reading was supplied to Dr. Carrion. Dustin Paige Jr., MD on May 13, 2017 at 15:18 Board Certified Radiologist. This report was verified electronically.
[2017-05-13 15:26] LABS: BASOPHIL % 0.5 % (0.0-2.0); EOSINOPHIL % 0.3 % (0.0-4.0); HEMATOCRIT 43.8 % (35.0-46.0); HEMO FLAGS DIFF FINAL; LYMPH % 14.1 % (9.0-44.0); LYMPHOCYTE # 1.3 TH/MM3 (1.0-4.8); MEAN CELL VOLUME 86.8 FL (80.0-100.0); MEAN CORPUSCULAR HGB CONC 33.5 % (32.0-36.0); MONO % 9.8 % (0.0-8.0); NEUT % 75.3 % (16.0-70.0); PLATELET COUNT 241 TH/MM3 (150-450); RED BLOOD COUNT 5.04 MIL/MM3 (4.00-5.30); RED CELL DISTRIBUTION WIDTH 14.5 % (11.6-17.2); WHITE BLOOD COUNT 9.3 TH/MM3 (4.0-11.0)
[2017-05-13 15:31] LABS: APTT (PATIENT) 27.7 SEC (24.3-30.1); INTERNATIONAL NORMALIZED RATIO 1.9 RATIO
[2017-05-13] MEDS ORDERED: GLUCAGON 1 MG/ML VIAL OTHER PRN (15:45)
[2017-05-13] MEDS ORDERED: DEXTROSE 50% IN WATER 50 ML VIAL(D50) IV PUSH PRN (15:45)
[2017-05-13] MEDS ORDERED: SODIUM CHLORIDE 0.9% FLUSH 10 ML FLUSH IV FLUSH PRN (15:45)
--- NOTE | 2017-05-13 15:55 | MB ---
cc: ISMA OLIVARES M.D. DATE OF CONSULTATION 05/13/2017 REASON FOR CONSULTATION Stroke Alert. HISTORY OF PRESENT ILLNESS Ms. Pan is an 86-year-old female who was admitted on 05/11/2017 with alteration in mental status with confusion. She was stable in the CDU downstairs, developed hypertension with systolics over 200. She was therefore transferred to the CVICU for further evaluation. At some point she was noted to have a change in neurologic status with decreased mental status. Upon discussing this with the nursing staff it probably occurred around 9:45 or 10 o'clock in the morning. PAST MEDICAL HISTORY 1. History of atrial fibrillation. Her INR was subtherapeutic at 1.6 on admission. 2. History of PVD. 3. Hypertension. 4. Dyslipidemia. 5. Hypothyroidism. 6. Pacemaker. 7. Spinal fusion. ALLERGIES 1. PETROLATUM. 2. MINERAL OIL. 3. SULFA. 4. CRANBERRIES. MEDICATIONS Current medications are: 1. Coumadin 2 mg daily. 2. Labetalol IV. 3. Clopidogrel 75 mg daily. 4. Digoxin 0.125 mg daily. 5. ISMO 10 mg daily. 6. Prinivil 5 mg daily. 7. Protonix 20 mg daily. 8. KCl. 9. Synthroid 100 mcg daily. 10.Zetia 10 mg daily. 11.Betapace 80 mg b.i.d. 12.Sucralfate. 13.Tramadol p.r.n. NEUROLOGICAL EXAMINATION VITAL SIGNS: Blood pressure in the 170/85 range, pulse 75, respirations 18. She is in atrial fibrillation. HIGHER CORTICAL FUNCTION: She does not follow commands, does not respond. CRANIAL NERVES: She has a left gaze. MOTOR EXAM: She moves the left arm but not the right arm. She withdraws both legs to tactile stimuli, more on the left than on the right. Reflexes are symmetric. IMAGING CT of the brain: Chronic change. No acute change present. CT angiogram of the brain: There is no evidence of any large vessel occlusion. CTA of the neck: Patent carotid arteries bilaterally. Left subclavian occlusion with retrograde flow down the left vertebral artery is identified. LABORATORY DATA White count is 9300, hemoglobin 14.6, hematocrit 43.8%, platelets 241,000. Sodium 139, potassium 3.5, chloride 101, BUN 12, creatinine 0.6, glucose 145. Cholesterol 99, LDL 48, HDL 37. INR 1.6 on 05/11/2017. INR from today is pending. IMPRESSION Probable left hemisphere stroke. RECOMMENDATION The patient is outside the window for TPA. Would recommend follow-up on the current INR and continue current dose of Coumadin. If the INR is subtherapeutic, still, i.e., less than 2, I would not anticoagulate at this time with Lovenox or heparin until the patient is more stable neurologically due to the inherent risk of potential hemorrhagic conversion. We cannot do an MRI of the pacemaker. MD MARIAMA Pritchard/MIESHA /3:27 PM /3:40 PM
[2017-05-13] MEDS: WARFARIN SOD 2 MG TAB PO SCH (16:00)
[2017-05-13] MEDS: SODIUM CHLOR 0.9% 1000 ML INJ 1,000 ML IV SCH (16:15)
[2017-05-13 16:37] LABS: HEMOGLOBIN A1a 1.1 %; HEMOGLOBIN A1b 0.9 %; HEMOGLOBIN Ao 84.9 %; HEMOGLOBIN F 1.1 %; HEMOGLOBIN LA1C 2.3 %; HEMOGLOBIN P3 3.8 %
--- NOTE | 2017-05-13 17:20 | EKG ---
Date Performed: 05/13/2017 Time Performed: 08:38:31 PTAGE: 86 years EKG: ATRIAL FIBRILLATION INCOMPLETE RIGHT BUNDLE BRANCH BLOCK RIGHT VENTRICULAR HYPERTROPHY Sinc e PREVIOUS TRACING , no significant change noted PREVIOUS TRACIN05/11/2017 14.28 DOCTOR: Kerry Burton Interpretating Date/Time 05/13/2017 17:19:10
[2017-05-13] MEDS: EZETIMIBE 10 MG TAB PO SCH (21:00)
[2017-05-14] VITALS (10 sets, daily range): BP systolic 159–200; BP diastolic 75–122; PULSE 69–90; RESP 14–18; TEMP 98.4–100.4; O2SAT 97–100
[2017-05-14] MEDS: ENALAPRILAT 1.25 MG/ML VIAL IV PUSH PRN (02:05)
[2017-05-14 05:56] LABS: ALT (GPT) 27 U/L (10-53); ANION GAP 10 MEQ/L (5-15); AST (GOT) 69 U/L (15-37); BICARBONATE 24.9 MEQ/L (21.0-32.0); BLOOD UREA NITROGEN 14 MG/DL (7-18); CHLORIDE 105 MEQ/L (98-107); GLOMERULAR FILTRATION RATE 82 ML/MIN (>89); POTASSIUM 3.4 MEQ/L (3.5-5.1); SODIUM (NA) 140 MEQ/L (136-145)
[2017-05-14] MEDS: LEVOTHYROXINE SODIUM 100 MCG TAB PO SCH (06:00)
[2017-05-14] MEDS: SODIUM CHLOR 0.9% 1000 ML INJ 1,000 ML IV SCH ×2 (06:00→20:51)
[2017-05-14 06:05] LABS: ALKALINE PHOSPHATASE 87 U/L (45-117); DIGOXIN 0.6 NG/ML (0.8-2.0); HDL CHOLESTEROL 30.2 MG/DL (40.0-60.0); LDL CHOLESTEROL 85 MG/DL (0-99); TOTAL BILIRUBIN ADULT 1.4 MG/DL (0.2-1.0)
[2017-05-14] MEDS: INSULIN ASPART SUPPLEMENTAL SCALE SQ SCH ×4 (08:00→21:00)
--- NOTE | 2017-05-14 11:26 | HHI.FPPN ---
Subjective Remarks Yesterday developed acute RUE weakness / flaccid paralysis. Stroke alert called , see addendum 05/13 and documentation below. Since then no improvement in mental status or flaccid paralysis per nursing, but no other events or decompensation. (Eder Holman MD) Objective Vitals Vital Signs Date Time Temp Pulse Resp B/P (MAP) Pulse Ox O2 Delivery O2 Flow Rate FiO2 05/14/17 08:45 98 Nasal Cannula 2.00 05/14/17 07:44 97 Nasal Cannula 3.00 05/14/17 07:44 78 05/14/17 07:44 99.0 87 16 159/99 (119) 97 05/14/17 03:00 100.4 90 18 174/75 (108) 98 05/14/17 03:00 98 Nasal Cannula 3.00 05/14/17 03:00 78 05/14/17 02:15 183/98 (126) 05/14/17 02:00 200/122 (148) 05/13/17 23:00 99.1 89 18 185/118 (140) 94 05/13/17 23:00 94 Room Air 05/13/17 23:00 71 05/13/17 20:06 99 Nasal Cannula 3.00 05/13/17 19:00 98 Nasal Cannula 3.00 05/13/17 19:00 66 05/13/17 19:00 100.0 62 18 165/92 (116) 98 05/13/17 17:00 98.4 72 18 143/91 (108) 95 05/13/17 16:46 99 Nasal Cannula 3.00 05/13/17 16:00 78 05/13/17 12:45 98.6 79 18 207/121 (149) 95 I/O 05/13/17 05/13/17 05/13/17 05/14/17 05/14/17 05/14/17 07:00 15:00 23:00 07:00 15:00 23:00 Intake Total 480 ml 280 ml 0 ml Balance 480 ml 280 ml 0 ml Intake Oral 480 ml 0 ml 0 ml IV Total 280 ml # Voids 1 1 5 # Bowel Movements 1 0 0 (Eder Holman MD) Result Diagram: 05/13/17 1426 05/14/17 0401 Imaging Last Impressions Neck CTA 05/13/17 0000 Signed Impressions: Service Date/Time: Saturday, May 13, 2017 14:36 - CONCLUSION: 1. Patent carotid arteries bilaterally. 2. 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 3. A wet reading was supplied to Dr. Carrion. Dustin Paige Jr., MD Head CTA 05/13/17 0000 Signed Impressions: Service Date/Time: Saturday, May 13, 2017 14:36 - CONCLUSION: No filling defects to suggest embolus or thrombus. Calcified atherosclerotic plaque as detailed above. Dustin Paige Jr., MD Head CT 05/13/17 0000 Signed Impressions: Service Date/Time: Saturday, May 13, 2017 14:36 - CONCLUSION: Negative for acute hemorrhage. Moderate calcific vascular disease. CT is pending. Patrice Wilson MD FACR Chest X-Ray 05/11/17 1403 Signed Impressions: Service Date/Time: Thursday, May 11, 2017 14:37 - CONCLUSION: 1. No acute cardiopulmonary disease. Beny Cevallos MD Carotid Artery Ultrasound 05/11/17 0000 Signed Impressions: Service Date/Time: Thursday, May 11, 2017 18:22 - CONCLUSION: 1. No hemodynamically significant stenosis in the carotid arteries. Moderate size visible plaque formation around the right carotid bifurcation. Mild plaque around the left carotid bifurcation. 2. Retrograde flow left vertebral artery which can indicate a proximal subclavian stenosis. Joseph Connors MD Objective Remarks GENERAL: Well-nourished, well-developed patient laying in bed, in no acute distress. SKIN: Warm and dry. NECK: Supple, trachea midline. No JVD or lymphadenopathy. CARDIOVASCULAR: Normal rate, irregularly irregular rhythm without murmurs, gallops, or rubs. RESPIRATORY: Breath sounds equal bilaterally. No accessory muscle use. GASTROINTESTINAL: Abdomen soft, non-distended EXTREMITIES: No cyanosis, or edema. NEUROLOGICAL: Obtunded; does not awaken to name or sternal rub. Purposeful movement of LUE with sternal rub; + grimace. Flaccid paralysis of RUE. Movement observed of LUE, LLE, and to lesser degree RLE. Medications and IVs Current Medications Medications (Trade) Dose Ordered Sig/Lissette Route Start Time Stop Time Status Last Admin (Plavix) 75 mg DAILY PO 05/12/17 09:00 05/12/17 09:50 (Lanoxin) 0.125 mg DAILY PO 05/12/17 09:00 05/12/17 09:51 (Zetia) 10 mg HS PO 05/11/17 21:00 05/12/17 21:11 (Ismo) 10 mg DAILY PO 05/12/17 09:00 05/12/17 09:49 (Synthroid) 100 mcg DAILY@0600 PO 05/12/17 06:00 05/13/17 05:25 (Prinivil) 5 mg DAILY PO 05/12/17 09:00 05/12/17 09:51 (Protonix) 20 mg DAILY PO 05/12/17 09:00 05/12/17 09:49 (KCl) 20 meq DAILY PO 05/12/17 09:00 05/12/17 09:50 (Betapace) 80 mg BID PO 05/11/17 21:00 05/12/17 21:11 (Carafate) 1 gm BID PO 05/11/17 21:00 05/12/17 21:11 (Ultram) 50 mg Q6H PRN PO 05/11/17 17:45 (Coumadin) 2 mg DAILY@1600 PO 05/11/17 17:45 05/12/17 19:52 (Pill Splitter) 1 ea UNSCH PRN OTHER 05/11/17 18:00 Patient Own Medication PT OWN MED: SIMVASTA... HS PO 05/11/17 21:00 Future Hold (Tylenol) 650 mg Q4H PRN PO 05/11/17 18:30 (NS Flush) 2 ml BID IV FLUSH 05/13/17 21:00 (NS Flush) 2 ml UNSCH PRN IV FLUSH 05/13/17 15:45 (NovoLOG SUPPLEMENTAL SCALE) 1 ACHS SQ 05/13/17 17:00 (D50w (Vial) Inj) 50 ml UNSCH PRN IV PUSH 05/13/17 15:45 (Glucagon Inj) 1 mg UNSCH PRN OTHER 05/13/17 15:45 Sodium Chloride 1,000 ml @ 70 mls/hr [id number] IV 05/13/17 16:15 05/14/17 06:00 (Vasotec Inj) 1.25 mg Q4H PRN IV PUSH 05/13/17 22:15 05/14/17 02:05 (Eder Holman MD) A/P Assessment and Plan Mrs. Pan is a 86 y/o F presenting with: (Eder Holman MD) Attending Attestation Patient seen and examined. Case reviewed and discussed with the resident team. Agree with plan of care as discussed with me and documented in the resident note. (Bashir Bingham MD) Problem List: (1) Altered mental status, unspecified ICD Codes: R41.82 - Altered mental status, unspecified Status: Acute Plan: Patient with episode of altered mental status and hypotension resolved without intervention. Patient with history of prior CVA. Imaging findings as noted above; briefly, no evidence on CT or CTA of head/neck of ischemia that would explain symptoms Differential: TIA/CVA versus somnolence from diastolic dysfunction versus medication side effect versus dehydration Troponin: 0.05, 0.05, 0.05-> 0.04 EKG: AFib with normal rate Orthostatic vital signs: shows some orthostasis from sitting to standing * Neurology consulted, appreciate recommendations: * Strongly suspecting large L hemisphere stroke * Patient was outside the 4.5 hour window for TPA * NPO * No anticoagulation at this time given potential risk of hemorrhagic conversion * ST * Check ammonia level * Trend CMP * Continue Plavix daily * PT/OT/ST and case management. (2) Elevated brain natriuretic peptide (BNP) level ICD Codes: R79.89 - Other specified abnormal findings of blood chemistry Status: Acute Plan: Patient with no reported history/sx of CHF Item Value Date Time B-Type Natriuretic Peptide 1112 PG/ML H 05/11/17 1410 B-Type Natriuretic Peptide 1435 PG/ML H 05/13/17 0442 B-Type Natriuretic Peptide 1195 PG/ML H 05/14/17 0401 * Echocardiogram: normal LVEF, severe LVH worse at septum, moderate tricuspid regurgitation, mild aortic and mitral regurgitation * Trend BNP * IV Lasix 40 mg once today, evaluate response * Repeat CXR today (3) HTN (hypertension) ICD Codes: I10 - Essential (primary) hypertension Status: Chronic Plan: Acute on chronic hypertension * Continue at home lisinopril 5mg daily - currently held for NPO status * Vasotec 1.25 mg IV Q6H PRN BP > 220/100 (4) Afib ICD Codes: I48.91 - Unspecified atrial fibrillation Status: Chronic Plan: Patient with history of atrial fibrillation Rate currently controlled i.e. < 100 * Continue home digoxin 0.125 mg, sotalol * Digoxin level 1.1 * Continue warfarin 2 mg daily * INR subtherapeutic to 1.6 will continue to monitor * If NPO status persists, consider NG tube for medication administration (5) Hypothyroidism ICD Codes: E03.9 - Hypothyroidism, unspecified Status: Chronic Plan: Patient with history of hypothyroidism * Continue Synthroid 100 g daily (6) HLD (hyperlipidemia) ICD Codes: E78.5 - Hyperlipidemia, unspecified Status: Chronic Plan: Patient with history of hyperlipidemia * Continue Zetia and simvastatin daily (7) No contraindication to deep vein thrombosis (DVT) prophylaxis ICD Codes: Z78.9 - Other specified health status Status: Acute Plan: -Continue warfarin for anticoagulation (8) Nutrition, metabolism, and development symptoms ICD Codes: R63.8 - Other symptoms and signs concerning food and fluid intake Status: Acute Plan: Fluids: Holding for now due to concern for fluid overload in setting of LVH with probable diastolic dysfunction Electrolytes: Hypercalcemia noted, will continue to monitor Nutrition: NPO DVT Prophylaxis: Pharmacologic contraindication - suspected acute CVA GI Prophylaxis: Protonix 40 mg IV daily (Eder Holman MD) Problem Qualifiers (1) Altered mental status, unspecified: Qualified Codes: R41.82 - Altered mental status, unspecified (2) Afib: Qualified Codes: I48.2 - Chronic atrial fibrillation Eder Holman MD May 14, 2017 11:26 Bashir Bingham MD May 15, 2017 09:24
[2017-05-14] MEDS ORDERED: FUROSEMIDE 40 MG/4 ML VIAL IV PUSH ONE (12:00)
[2017-05-14 13:55] LABS: INTERNATIONAL NORMALIZED RATIO 1.9 RATIO; PROTHROMBIN TIME - PATIENT 18.9 SEC (9.8-11.6)
[2017-05-14 14:01] LABS: AUTOMATED NEUTROPHIL # 7.3 TH/MM3 (1.8-7.7); BASOPHIL # 0.1 TH/MM3 (0-0.2); BASOPHIL % 0.5 % (0.0-2.0); EOSINOPHIL # 0.1 TH/MM3 (0-0.4); EOSINOPHIL % 0.6 % (0.0-4.0); HEMATOCRIT 39.4 % (35.0-46.0); HEMO FLAGS DIFF FINAL; LYMPH % 12.6 % (9.0-44.0); LYMPHOCYTE # 1.3 TH/MM3 (1.0-4.8); MEAN CELL VOLUME 86.6 FL (80.0-100.0); MEAN CORPUSCULAR HEMOGLOBIN 28.9 PG (27.0-34.0); MEAN CORPUSCULAR HGB CONC 33.4 % (32.0-36.0); MONO % 13.3 % (0.0-8.0); PLATELET COUNT 212 TH/MM3 (150-450); RED BLOOD COUNT 4.55 MIL/MM3 (4.00-5.30); RED CELL DISTRIBUTION WIDTH 14.6 % (11.6-17.2); WHITE BLOOD COUNT 10.1 TH/MM3 (4.0-11.0)
--- NOTE | 2017-05-14 14:21 | RADRPT ---
EXAM DATE/TIME: 05/14/2017 12:56 [facility] COMPARISON: CHEST SINGLE AP, May 11, 2017, 14:37. INDICATIONS : Short of breath MEDICAL HISTORY : Cardiovascular disease. Hypertension SURGICAL HISTORY : Hysterectomy. Pacemaker. ENCOUNTER: Subsequent ACUITY: 4 - 6 days PAIN SCORE: 0/10 LOCATION: Chest FINDINGS: A single view of the chest demonstrates the lungs to be symmetrically aerated without evidence of mas s, infiltrate or effusion. The cardiomediastinal contours are unremarkable. Osseous structures are intact. A pacing device overlies left chest. CONCLUSION: No acute disease. Dustin Paige Jr., MD on May 14, 2017 at 14:19 Board Certified Radiologist. This report was verified electronically.
[2017-05-14] MEDS: SODIUM CHLORIDE 0.9% FLUSH 10 ML FLUSH IV FLUSH SCH ×2 (15:19→21:00)
--- NOTE | 2017-05-14 16:11 | EKG ---
Date Performed: 05/13/2017 Time Performed: 14:23:48 PTAGE: 86 years EKG: ATRIAL FIBRILLATION with ventricular ectopy. INDETERMINATE AXIS POSSIBLE RIGHT VENTRICULAR HYPERTROPHY MODERATE T-WAVE ABNORMALITY, CONSIDER ANTEROLATERAL ISCHEMIA MODERATE T-WAVE ABNORMALITY, CONSIDER INFERIOR ISCHEMIA Ventricular paced beats are noted intermittingly. Clinical corrolation is suggested. ABNORMAL ECG PREVIOUS TRACING : 05/13/2017 08.38 DOCTOR: Jonathon Gordillo Interpretating Date/Time 05/14/2017 16:10:48
--- NOTE | 2017-05-14 23:16 | HHI.PR ---
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 Plan resume coumadin when able to take PO or when tube is placed Diagnosis/Plan: Subjective Subjective Comments No acute events reported was lethargic most of the day but now more alert Active Medications Current Medications Medications (Trade) Dose Ordered Sig/Lissette Route Start Time Stop Time Status Last Admin (Plavix) 75 mg DAILY PO 05/12/17 09:00 Future Hold 05/12/17 09:50 (Lanoxin) 0.125 mg DAILY PO 05/12/17 09:00 Future Hold 05/12/17 09:51 (Zetia) 10 mg HS PO 05/11/17 21:00 Future Hold 05/12/17 21:11 (Ismo) 10 mg DAILY PO 05/12/17 09:00 Future Hold 05/12/17 09:49 (Synthroid) 100 mcg DAILY@0600 PO 05/12/17 06:00 Future Hold 05/13/17 05:25 (Prinivil) 5 mg DAILY PO 05/12/17 09:00 Future Hold 05/12/17 09:51 (Protonix) 20 mg DAILY PO 05/12/17 09:00 Future Hold 05/12/17 09:49 (KCl) 20 meq DAILY PO 05/12/17 09:00 Future Hold 05/12/17 09:50 (Betapace) 80 mg BID PO 05/11/17 21:00 Future Hold 05/12/17 21:11 (Carafate) 1 gm BID PO 05/11/17 21:00 Future Hold 05/12/17 21:11 (Ultram) 50 mg Q6H PRN PO 05/11/17 17:45 Future Hold (Coumadin) 2 mg DAILY@1600 PO 05/11/17 17:45 Future Hold 05/12/17 19:52 (Pill Splitter) 1 ea UNSCH PRN OTHER 05/11/17 18:00 Patient Own Medication PT OWN MED: SIMVASTA... HS PO 05/11/17 21:00 Future Hold (Tylenol) 650 mg Q4H PRN PO 05/11/17 18:30 Future Hold (NS Flush) 2 ml BID IV FLUSH 05/13/17 21:00 05/14/17 15:19 (NS Flush) 2 ml UNSCH PRN IV FLUSH 05/13/17 15:45 (NovoLOG SUPPLEMENTAL SCALE) 1 ACHS SQ 05/13/17 17:00 (D50w (Vial) Inj) 50 ml UNSCH PRN IV PUSH 05/13/17 15:45 (Glucagon Inj) 1 mg UNSCH PRN OTHER 05/13/17 15:45 Sodium Chloride 1,000 ml @ 70 mls/hr [id number] IV 05/13/17 16:15 05/14/17 20:51 (Vasotec Inj) 1.25 mg Q4H PRN IV PUSH 05/13/17 22:15 05/14/17 02:05 Allergies Allergies Coded Allergies Sulfa (Sulfonamide Antibiotics) (Verified Allergy, Unknown, 05/11/17) mineral oil (Verified Allergy, Unknown, 05/11/17) petrolatum,hydrophilic (Verified Allergy, Unknown, 05/11/17) MRI PRECAUTION (Verified Adverse Reaction, Severe, pacemaker defibrillator, ) Uncoded Allergies cranberries ( Allergy, Mild, 03/14/17) Exam I&O / VS 05/14/17 05/14/17 05/15/17 15:00 23:00 07:00 Intake Total 960 ml Output Total 150 ml Balance 810 ml Intake Oral 0 ml IV Total 960 ml Output Urine Total 150 ml # Voids 3 # Bowel Movements 0 Vital Signs Date Time Temp Pulse Resp B/P (MAP) Pulse Ox O2 Delivery O2 Flow Rate FiO2 05/14/17 19:00 98 Nasal Cannula 3.00 05/14/17 19:00 78 05/14/17 19:00 98.4 76 16 179/85 (116) 100 05/14/17 15:00 78 05/14/17 15:00 98.8 78 16 169/88 (115) 98 05/14/17 15:00 98 Nasal Cannula 3.00 05/14/17 11:24 98.9 69 14 172/84 (113) 98 05/14/17 11:24 72 05/14/17 11:24 98 Nasal Cannula 3.00 05/14/17 08:45 98 Nasal Cannula 2.00 05/14/17 07:44 97 Nasal Cannula 3.00 05/14/17 07:44 78 05/14/17 07:44 99.0 87 16 159/99 (119) 97 05/14/17 03:00 100.4 90 18 174/75 (108) 98 05/14/17 03:00 98 Nasal Cannula 3.00 05/14/17 03:00 78 05/14/17 02:15 183/98 (126) 05/14/17 02:00 200/122 (148) Respiratory: Lungs CTA, Non-labored respirations, Symmetrical expansion Cardiology: Normal rate, Normal peripheral perfusion, Irregular Rhythm Musculoskeletal: ROM, Tenderness Exam Comments lethargic but arousable. No spontaneous speech does not follow commands CN --right UMN 7 palsey. Tends to have a left gaze preference MOTOR--no spontaneous movement RUE or RLE. Move left well Objective Micro and Labs Laboratory Tests Test 05/14/17 04:01 05/14/17 13:33 05/14/17 16:40 Blood Urea Nitrogen 14 Creatinine 0.68 Random Glucose 105 Total Protein 6.5 Albumin 2.7 Calcium Level 9.6 Alkaline Phosphatase 87 Aspartate Amino Transf (AST/SGOT) 69 Alanine Aminotransferase (ALT/SGPT) 27 Total Bilirubin 1.4 Sodium Level 140 Potassium Level 3.4 3.3 Chloride Level 105 Carbon Dioxide Level 24.9 Anion Gap 10 Estimat Glomerular Filtration Rate 82 B-Type Natriuretic Peptide 1195 Triglycerides Level 89 Cholesterol Level 133 LDL Cholesterol 85 HDL Cholesterol 30.2 Cholesterol/HDL Ratio 4.40 Digoxin Level 0.6 White Blood Count 10.1 Red Blood Count 4.55 Hemoglobin 13.1 Hematocrit 39.4 Mean Corpuscular Volume 86.6 Mean Corpuscular Hemoglobin 28.9 Mean Corpuscular Hemoglobin Concent 33.4 Red Cell Distribution Width 14.6 Platelet Count 212 Mean Platelet Volume 8.0 Neutrophils (%) (Auto) 73.0 Lymphocytes (%) (Auto) 12.6 Monocytes (%) (Auto) 13.3 Eosinophils (%) (Auto) 0.6 Basophils (%) (Auto) 0.5 Neutrophils # (Auto) 7.3 Lymphocytes # (Auto) 1.3 Monocytes # (Auto) 1.3 Eosinophils # (Auto) 0.1 Basophils # (Auto) 0.1 CBC Comment DIFF FINAL Differential Comment Prothrombin Time 18.9 Prothromb Time International Ratio 1.9 Ammonia 26 Gilbert Carrion PhD May 14, 2017 23:16
[2017-05-15] VITALS (20 sets, daily range): BP systolic 188–214; BP diastolic 99–138; PULSE 75–110; RESP 16–20; TEMP 98.6–99; O2SAT 97–100
[2017-05-15] MEDS: ENALAPRILAT 1.25 MG/ML VIAL IV PUSH PRN ×2 (01:03→15:19)
[2017-05-15 04:44] LABS: ALKALINE PHOSPHATASE 90 U/L (45-117); ALT (GPT) 18 U/L (10-53); ANION GAP 11 MEQ/L (5-15); AST (GOT) 46 U/L (15-37); BICARBONATE 27.5 MEQ/L (21.0-32.0); BLOOD UREA NITROGEN 14 MG/DL (7-18); CHLORIDE 105 MEQ/L (98-107); GLOMERULAR FILTRATION RATE 87 ML/MIN (>89); SODIUM (NA) 143 MEQ/L (136-145); TOTAL BILIRUBIN ADULT 1.7 MG/DL (0.2-1.0)
[2017-05-15 04:47] LABS: POTASSIUM 2.9 MEQ/L (3.5-5.1)
[2017-05-15] MEDS: POTASSIUM CHLOR 20 MEQ PREMIX 100 ML IV SCH ×4 (06:58→11:00)
[2017-05-15] MEDS: INSULIN ASPART SUPPLEMENTAL SCALE SQ SCH ×4 (08:00→20:22)
[2017-05-15] MEDS: SODIUM CHLORIDE 0.9% FLUSH 10 ML FLUSH IV FLUSH SCH ×2 (09:00→20:22)
[2017-05-15] MEDS: DIGOXIN 0.125 MG TAB PO SCH (16:07)
[2017-05-15] MEDS: ISOSORBIDE MONONITRATE 20 MG TAB PO SCH (16:07)
[2017-05-15] MEDS: LISINOPRIL 5 MG TAB PO SCH (16:07)
[2017-05-15] MEDS: SOTALOL HCL 80 MG TAB PO SCH ×2 (16:07→20:22)
[2017-05-15] MEDS: SUCRALFATE 1 GM TAB PO SCH (16:08)
[2017-05-15] MEDS: POTASSIUM CHLORIDE 10 MEQ CONTROLLED RELEASE TAB PO SCH (16:08)
[2017-05-15] MEDS: PANTOPRAZOLE SOD 20 MG DELAYED RELEASE TAB PO SCH (16:08)
[2017-05-15] MEDS: CLOPIDOGREL 75 MG TAB PO SCH (16:09)
--- NOTE | 2017-05-15 18:59 | HHI.PR ---
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 Plan continue coumadin Diagnosis/Plan: Subjective Subjective Comments No acute events reported Active Medications Current Medications Medications (Trade) Dose Ordered Sig/Lissette Route Start Time Stop Time Status Last Admin (Plavix) 75 mg DAILY PO 05/12/17 09:00 Future Hold 05/12/17 09:50 (Lanoxin) 0.125 mg DAILY PO 05/12/17 09:00 Future hold 05/12/17 09:51 (Zetia) 10 mg HS PO 05/11/17 21:00 Future Hold 05/12/17 21:11 (Ismo) 10 mg DAILY PO 05/12/17 09:00 Future hold 05/12/17 09:49 (Synthroid) 100 mcg DAILY@0600 PO 05/12/17 06:00 Future hold 05/13/17 05:25 (Prinivil) 5 mg DAILY PO 05/12/17 09:00 Future hold 05/12/17 09:51 (Protonix) 20 mg DAILY PO 05/12/17 09:00 Future hold 05/12/17 09:49 (KCl) 20 meq DAILY PO 05/12/17 09:00 Future Hold 05/12/17 09:50 (Betapace) 80 mg BID PO 05/11/17 21:00 Future hold 05/12/17 21:11 (Carafate) 1 gm BID PO 05/11/17 21:00 Future Hold 05/12/17 21:11 (Ultram) 50 mg Q6H PRN PO 05/11/17 17:45 Future Hold (Coumadin) 2 mg DAILY@1600 PO 05/11/17 17:45 Future hold 05/12/17 19:52 (Pill Splitter) 1 ea UNSCH PRN OTHER 05/11/17 18:00 Patient Own Medication PT OWN MED: SIMVASTA... HS PO 05/11/17 21:00 Future Hold (Tylenol) 650 mg Q4H PRN PO 05/11/17 18:30 Future Hold (NS Flush) 2 ml BID IV FLUSH 05/13/17 21:00 05/14/17 15:19 (NS Flush) 2 ml UNSCH PRN IV FLUSH 05/13/17 15:45 (NovoLOG SUPPLEMENTAL SCALE) 1 ACHS SQ 05/13/17 17:00 (D50w (Vial) Inj) 50 ml UNSCH PRN IV PUSH 05/13/17 15:45 (Glucagon Inj) 1 mg UNSCH PRN OTHER 05/13/17 15:45 Sodium Chloride 1,000 ml @ 70 mls/hr [id number] IV 05/13/17 16:15 Future Hold 05/14/17 20:51 (Vasotec Inj) 1.25 mg Q4H PRN IV PUSH 05/13/17 22:15 05/15/17 15:19 Allergies Allergies Coded Allergies Sulfa (Sulfonamide Antibiotics) (Verified Allergy, Unknown, 05/11/17) mineral oil (Verified Allergy, Unknown, 05/11/17) petrolatum,hydrophilic (Verified Allergy, Unknown, 05/11/17) MRI PRECAUTION (Verified Adverse Reaction, Severe, pacemaker defibrillator, ) Uncoded Allergies cranberries ( Allergy, Mild, 03/14/17) Exam I&O / VS 05/15/17 05/15/17 05/16/17 15:00 23:00 07:00 Intake Total 300 ml 100 ml Output Total 200 ml Balance 300 ml -100 ml IV Total 300 ml 100 ml Output Urine Total 200 ml # Bowel Movements 0 Vital Signs Date Time Temp Pulse Resp B/P (MAP) Pulse Ox O2 Delivery O2 Flow Rate FiO2 05/15/17 18:31 89 05/15/17 17:39 211/116 (147) 05/15/17 17:10 103 05/15/17 16:00 104 05/15/17 15:51 98 Room Air 05/15/17 15:51 98.7 99 18 214/138 (163) 98 05/15/17 15:51 105 05/15/17 14:25 110 05/15/17 13:05 96 05/15/17 12:07 88 05/15/17 11:11 98 Room Air 05/15/17 11:11 86 05/15/17 11:11 98.8 92 18 192/102 (132) 98 05/15/17 10:14 89 05/15/17 09:46 92 05/15/17 08:00 98.8 75 20 189/112 (137) 100 05/15/17 08:00 100 Nasal Cannula 3.00 05/15/17 08:00 81 05/15/17 03:00 89 05/15/17 03:00 98.6 93 16 200/99 (132) 99 05/15/17 03:00 97 Nasal Cannula 3.00 05/14/17 23:00 97 Nasal Cannula 3.00 05/14/17 23:00 83 05/14/17 23:00 98.5 82 16 191/114 (139) 97 05/14/17 20:59 100 Nasal Cannula 3.00 05/14/17 19:00 98 Nasal Cannula 3.00 05/14/17 19:00 78 05/14/17 19:00 98.4 76 16 179/85 (116) 100 Respiratory: Lungs CTA, Non-labored respirations, Symmetrical expansion Cardiology: Normal rate, Normal peripheral perfusion, Irregular Rhythm Musculoskeletal: ROM, Tenderness Exam Comments lethargic but arousable. No spontaneous speech does not follow commands CN --right UMN 7 palsey. Tends to have a left gaze preference MOTOR--no spontaneous movement RUE or RLE. Move left well Objective Micro and Labs Laboratory Tests Test 05/15/17 03:44 05/15/17 18:00 Blood Urea Nitrogen 14 Creatinine 0.65 Random Glucose 97 Total Protein 6.7 Albumin 2.6 Calcium Level 9.7 Alkaline Phosphatase 90 Aspartate Amino Transf (AST/SGOT) 46 Alanine Aminotransferase (ALT/SGPT) 18 Total Bilirubin 1.7 Sodium Level 143 Potassium Level 2.9 4.1 Chloride Level 105 Carbon Dioxide Level 27.5 Anion Gap 11 Estimat Glomerular Filtration Rate 87 B-Type Natriuretic Peptide 1447 Gilbert Carrion PhD May 15, 2017 18:59
--- NOTE | 2017-05-15 20:10 | HHI.FPPN ---
Subjective Remarks Patient seen and examined approx 1000. Overnight did well. Much more alert per RN but still non-verbal. (Eder Holman MD) Objective Vitals Vital Signs Date Time Temp Pulse Resp B/P (MAP) Pulse Ox O2 Delivery O2 Flow Rate FiO2 05/15/17 18:31 89 05/15/17 17:39 211/116 (147) 05/15/17 17:10 103 05/15/17 16:00 104 05/15/17 15:51 98 Room Air 05/15/17 15:51 98.7 99 18 214/138 (163) 98 05/15/17 15:51 105 05/15/17 14:25 110 05/15/17 13:05 96 05/15/17 12:07 88 05/15/17 11:11 98 Room Air 05/15/17 11:11 86 05/15/17 11:11 98.8 92 18 192/102 (132) 98 05/15/17 10:14 89 05/15/17 09:46 92 05/15/17 08:00 98.8 75 20 189/112 (137) 100 05/15/17 08:00 100 Nasal Cannula 3.00 05/15/17 08:00 81 05/15/17 03:00 89 05/15/17 03:00 98.6 93 16 200/99 (132) 99 05/15/17 03:00 97 Nasal Cannula 3.00 05/14/17 23:00 97 Nasal Cannula 3.00 05/14/17 23:00 83 05/14/17 23:00 98.5 82 16 191/114 (139) 97 05/14/17 20:59 100 Nasal Cannula 3.00 I/O 05/14/17 05/14/17 05/14/17 05/15/17 05/15/17 05/15/17 07:00 15:00 23:00 07:00 15:00 23:00 Intake Total 780 ml 960 ml 0 ml 300 ml 100 ml Output Total 150 ml 350 ml 200 ml Balance 780 ml 810 ml -350 ml 300 ml -100 ml Intake Oral 0 ml 0 ml 0 ml IV Total 780 ml 960 ml 300 ml 100 ml Output Urine Total 150 ml 350 ml 200 ml # Voids 5 3 1 # Bowel Movements 0 0 0 0 (Eder Holman MD) Result Diagram: 05/14/17 1333 05/15/17 1800 Imaging Last Impressions Chest X-Ray 05/14/17 0000 Signed Impressions: Service Date/Time: Sunday, May 14, 2017 12:56 - CONCLUSION: No acute disease. Dustin Paige Jr., MD Neck CTA 05/13/17 0000 Signed Impressions: Service Date/Time: Saturday, May 13, 2017 14:36 - CONCLUSION: 1. Patent carotid arteries bilaterally. 2. 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 3. A wet reading was supplied to Dr. Carrion. Dustin Paige Jr., MD Head CTA 05/13/17 0000 Signed Impressions: Service Date/Time: Saturday, May 13, 2017 14:36 - CONCLUSION: No filling defects to suggest embolus or thrombus. Calcified atherosclerotic plaque as detailed above. Dustin Paige Jr., MD Head CT 05/13/17 0000 Signed Impressions: Service Date/Time: Saturday, May 13, 2017 14:36 - CONCLUSION: Negative for acute hemorrhage. Moderate calcific vascular disease. CT is pending. Patrice Wilson MD FACR Carotid Artery Ultrasound 05/11/17 0000 Signed Impressions: Service Date/Time: Thursday, May 11, 2017 18:22 - CONCLUSION: 1. No hemodynamically significant stenosis in the carotid arteries. Moderate size visible plaque formation around the right carotid bifurcation. Mild plaque around the left carotid bifurcation. 2. Retrograde flow left vertebral artery which can indicate a proximal subclavian stenosis. Joseph Connors MD Objective Remarks GENERAL: Well-nourished, well-developed patient laying in bed, in no acute distress. SKIN: Warm and dry. NECK: Supple, trachea midline. No JVD or lymphadenopathy. CARDIOVASCULAR: Normal rate, irregularly irregular rhythm without murmurs, gallops, or rubs. RESPIRATORY: Breath sounds equal bilaterally. No accessory muscle use. GASTROINTESTINAL: Abdomen soft, non-distended EXTREMITIES: No cyanosis, or edema. NEUROLOGICAL: Awake and alert. Global aphasia. Makes purposeful eye contact. Purposeful movement of LUE. Improved muscle tone with occasional twitching of RUE. Movement observed of LUE, LLE, and to lesser degree RLE. (Eder Holman MD) A/P Assessment and Plan Mrs. Pan is a 86 y/o F presenting with: (Eder Holman MD) Discharge Planning Patient seen and examined. Case reviewed and discussed with the resident team. Agree with plan of care as discussed with me and documented in the resident note. (Bashir Bingham MD) Problem List: (1) Altered mental status, unspecified ICD Codes: R41.82 - Altered mental status, unspecified Status: Acute Plan: Patient with episode of altered mental status and hypotension resolved without intervention. Patient with history of prior TIA. Imaging findings as noted above; briefly, no evidence on CT or CTA of head/neck of ischemia that would explain symptoms Differential: TIA/CVA versus somnolence from diastolic dysfunction versus medication side effect versus dehydration Troponin: 0.05, 0.05, 0.05 -> 0.04 EKG: AFib with normal rate Orthostatic vital signs: shows some orthostasis from sitting to standing Ammonia level 26 (normal) * Neurology consulted, appreciate recommendations: * Strongly suspecting large L hemisphere stroke * Patient was outside the 4.5 hour window for TPA * NPO * No anticoagulation except coumadin at this time given potential risk of hemorrhagic conversion * ST * Trend CMP * More awake today; if ST says still needs to be NPO, place NG tube for medication administration until * PT/OT/ST and case management. (2) Elevated brain natriuretic peptide (BNP) level ICD Codes: R79.89 - Other specified abnormal findings of blood chemistry Status: Acute Plan: Patient with no reported history/sx of CHF No improvement in BNP after Lasix IV x1; likely improvement in mental status was due to time CXR without signs of fluid overload Possibly due to HFpEF Item Value Date Time B-Type Natriuretic Peptide 1447 PG/ML H 05/15/17 0344 B-Type Natriuretic Peptide 1195 PG/ML H 05/14/17 0401 B-Type Natriuretic Peptide 1435 PG/ML H 05/13/17 0442 B-Type Natriuretic Peptide 1112 PG/ML H 05/11/17 1410 Echocardiogram: normal LVEF, severe LVH worse at septum, moderate tricuspid regurgitation, mild aortic and mitral regurgitation * Trend BNP * Resume lisinopril * If neurological status allows, augment blood pressure treatment tomorrow AM with goal of slowly reducing BP * If patient mental status declines again, consider scheduled Lasix (3) HTN (hypertension) ICD Codes: I10 - Essential (primary) hypertension Status: Chronic Plan: Acute on chronic hypertension * Resume home lisinopril 5mg daily * Vasotec 1.25 mg IV Q6H PRN BP > 220/100 (4) Afib ICD Codes: I48.91 - Unspecified atrial fibrillation Status: Chronic Plan: Patient with history of atrial fibrillation Rate currently controlled i.e. < 100 * Resume home digoxin 0.125 mg, sotalol * Continue warfarin 2 mg daily * INR subtherapeutic to 1.9 will continue to monitor (5) Hypothyroidism ICD Codes: E03.9 - Hypothyroidism, unspecified Status: Chronic Plan: Patient with history of hypothyroidism * Continue Synthroid 100 g daily (6) HLD (hyperlipidemia) ICD Codes: E78.5 - Hyperlipidemia, unspecified Status: Chronic Plan: Patient with history of hyperlipidemia * Continue Zetia and simvastatin daily (7) No contraindication to deep vein thrombosis (DVT) prophylaxis ICD Codes: Z78.9 - Other specified health status Status: Acute Plan: -Continue warfarin for anticoagulation (8) Nutrition, metabolism, and development symptoms ICD Codes: R63.8 - Other symptoms and signs concerning food and fluid intake Status: Acute Plan: Fluids: Holding for now due to concern for fluid overload in setting of LVH with probable diastolic dysfunction Electrolytes:Monitor and replete PRN Nutrition: NPO DVT Prophylaxis: Coumadin 2 mg daily GI Prophylaxis: Protonix 40 mg IV daily (Eder Holman MD) Problem Qualifiers (1) Altered mental status, unspecified: Qualified Codes: R41.82 - Altered mental status, unspecified (2) Afib: Qualified Codes: I48.2 - Chronic atrial fibrillation Eder Holman MD May 15, 2017 20:10 Bashir Bingham MD May 15, 2017 21:11
[2017-05-15] MEDS ORDERED: ATORVASTATIN 40 MG TAB PO SCH (21:00)
[2017-05-15] MEDS: EZETIMIBE 10 MG TAB PO SCH (21:28)
[2017-05-16] VITALS (25 sets, daily range): BP systolic 14–214; BP diastolic 84–134; PULSE 0–103; RESP 16–20; TEMP 97.5–98.4; O2SAT 94–97
[2017-05-16] MEDS: LEVOTHYROXINE SODIUM 100 MCG TAB PO SCH (05:18)
[2017-05-16 05:44] LABS: BICARBONATE 25.7 MEQ/L (21.0-32.0); POTASSIUM 3.5 MEQ/L (3.5-5.1)
[2017-05-16] MEDS: INSULIN ASPART SUPPLEMENTAL SCALE SQ SCH ×3 (08:00→16:45)
[2017-05-16] MEDS: SODIUM CHLORIDE 0.9% FLUSH 10 ML FLUSH IV FLUSH SCH (09:00)
[2017-05-16] MEDS: DIGOXIN 0.125 MG TAB PO SCH (10:21)
[2017-05-16] MEDS: SOTALOL HCL 80 MG TAB PO SCH (10:22)
[2017-05-16] MEDS: ISOSORBIDE MONONITRATE 20 MG TAB PO SCH (10:22)
[2017-05-16] MEDS: PANTOPRAZOLE SOD 20 MG DELAYED RELEASE TAB PO SCH (10:22)
[2017-05-16] MEDS: LISINOPRIL 5 MG TAB PO SCH (10:22)
--- NOTE | 2017-05-16 10:59 | HHI.PR ---
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 Plan continue coumadin continue rehab, Diagnosis/Plan: Subjective Subjective Comments No acute events reported Active Medications Current Medications Medications (Trade) Dose Ordered Sig/Lissette Route Start Time Stop Time Status Last Admin (Plavix) 75 mg DAILY PO 05/12/17 09:00 Future Hold 05/12/17 09:50 (Lanoxin) 0.125 mg DAILY PO 05/12/17 09:00 Future hold 05/16/17 10:21 (Zetia) 10 mg HS PO 05/11/17 21:00 Future hold 05/15/17 21:28 (Ismo) 10 mg DAILY PO 05/12/17 09:00 Future hold 05/16/17 10:22 (Synthroid) 100 mcg DAILY@0600 PO 05/12/17 06:00 Future hold 05/16/17 05:18 (Prinivil) 5 mg DAILY PO 05/12/17 09:00 Future hold 05/16/17 10:22 (Protonix) 20 mg DAILY PO 05/12/17 09:00 Future hold 05/16/17 10:22 (KCl) 20 meq DAILY PO 05/12/17 09:00 Future Hold 05/12/17 09:50 (Betapace) 80 mg BID PO 05/11/17 21:00 Future hold 05/16/17 10:22 (Carafate) 1 gm BID PO 05/11/17 21:00 Future Hold 05/12/17 21:11 (Ultram) 50 mg Q6H PRN PO 05/11/17 17:45 Future hold (Coumadin) 2 mg DAILY@1600 PO 05/11/17 17:45 Future hold 05/12/17 19:52 (Pill Splitter) 1 ea UNSCH PRN OTHER 05/11/17 18:00 (Tylenol) 650 mg Q4H PRN PO 05/11/17 18:30 Future hold 05/16/17 01:27 (NS Flush) 2 ml BID IV FLUSH 05/13/17 21:00 05/15/17 20:22 (NS Flush) 2 ml UNSCH PRN IV FLUSH 05/13/17 15:45 (NovoLOG SUPPLEMENTAL SCALE) 1 ACHS SQ 05/13/17 17:00 (D50w (Vial) Inj) 50 ml UNSCH PRN IV PUSH 05/13/17 15:45 (Glucagon Inj) 1 mg UNSCH PRN OTHER 05/13/17 15:45 Sodium Chloride 1,000 ml @ 70 mls/hr [id number] IV 05/13/17 16:15 Future Hold 05/14/17 20:51 (Vasotec Inj) 1.25 mg Q4H PRN IV PUSH 05/13/17 22:15 05/15/17 15:19 (Lipitor) 40 mg HS PO 05/15/17 21:00 05/15/17 21:28 Allergies Allergies Coded Allergies Sulfa (Sulfonamide Antibiotics) (Verified Allergy, Unknown, 05/11/17) mineral oil (Verified Allergy, Unknown, 05/11/17) petrolatum,hydrophilic (Verified Allergy, Unknown, 05/11/17) MRI PRECAUTION (Verified Adverse Reaction, Severe, pacemaker defibrillator, ) Uncoded Allergies cranberries ( Allergy, Mild, 03/14/17) Exam I&O / VS Vital Signs Date Time Temp Pulse Resp B/P (MAP) Pulse Ox O2 Delivery O2 Flow Rate FiO2 05/16/17 10:02 161/107 (125) 05/16/17 10:01 214/125 (154) 05/16/17 09:58 98.0 89 16 191/124 (146) 97 05/16/17 09:49 94 21 05/16/17 06:06 88 05/16/17 05:06 92 05/16/17 04:07 95 05/16/17 03:31 98.4 103 17 147/85 (105) 95 05/16/17 03:31 83 05/16/17 03:31 95 Room Air 05/16/17 02:17 95 05/16/17 01:13 98 05/16/17 00:01 88 05/15/17 23:25 98.7 104 18 188/105 (132) 98 05/15/17 23:25 98 Room Air 05/15/17 23:19 90 05/15/17 22:00 88 05/15/17 21:58 90 05/15/17 20:52 98 Nasal Cannula 2.00 05/15/17 20:30 79 05/15/17 19:10 99.0 109 19 192/138 (156) 97 05/15/17 19:10 Room Air 05/15/17 19:10 109 05/15/17 18:31 89 05/15/17 17:39 211/116 (147) 05/15/17 17:10 103 05/15/17 16:00 104 05/15/17 15:51 98 Room Air 05/15/17 15:51 98.7 99 18 214/138 (163) 98 05/15/17 15:51 105 05/15/17 14:25 110 05/15/17 13:05 96 05/15/17 12:07 88 05/15/17 11:11 98 Room Air 05/15/17 11:11 86 05/15/17 11:11 98.8 92 18 192/102 (132) 98 Respiratory: Lungs CTA, Non-labored respirations, Symmetrical expansion Cardiology: Normal rate, Normal peripheral perfusion, Irregular Rhythm Musculoskeletal: ROM, Tenderness Exam Comments More alert. No spontaneous speech does not follow commands CN --right UMN 7 palsey. EOM intact--no longer with left gaze preference. MOTOR--no spontaneous movement RUE or RLE. Move left well Objective Micro and Labs Laboratory Tests Test 05/15/17 18:00 05/16/17 04:21 05/16/17 10:41 Potassium Level 4.1 3.5 Blood Urea Nitrogen 24 Creatinine 0.69 Random Glucose 118 Calcium Level 10.1 Sodium Level 144 Chloride Level 109 Carbon Dioxide Level 25.7 Anion Gap 9 Estimat Glomerular Filtration Rate 81 B-Type Natriuretic Peptide 1600 Gilbert Carrion PhD May 16, 2017 10:59
[2017-05-16 11:08] LABS: INTERNATIONAL NORMALIZED RATIO 1.7 RATIO; PROTHROMBIN TIME - PATIENT 17.3 SEC (9.8-11.6)
--- NOTE | 2017-05-16 11:55 | HHI.FPPN ---
Subjective Remarks Saw and examined the patient this morning. Patient was more alert. Unable to answer our questions. Per nursing staff patient was doing well. (Yasmine Chery MD R1) Objective Vitals Vital Signs Date Time Temp Pulse Resp B/P (MAP) Pulse Ox O2 Delivery O2 Flow Rate FiO2 05/16/17 10:02 161/107 (125) 05/16/17 10:01 214/125 (154) 05/16/17 10:00 100 05/16/17 09:58 98.0 89 16 191/124 (146) 97 05/16/17 09:49 94 21 05/16/17 09:00 98 05/16/17 08:30 98 Room Air 05/16/17 08:00 96 05/16/17 07:00 88 05/16/17 06:06 88 05/16/17 05:06 92 05/16/17 04:07 95 05/16/17 03:31 98.4 103 17 147/85 (105) 95 05/16/17 03:31 83 05/16/17 03:31 95 Room Air 05/16/17 02:17 95 05/16/17 01:13 98 05/16/17 00:01 88 05/15/17 23:25 98.7 104 18 188/105 (132) 98 05/15/17 23:25 98 Room Air 05/15/17 23:19 90 05/15/17 22:00 88 05/15/17 21:58 90 05/15/17 20:52 98 Nasal Cannula 2.00 05/15/17 20:30 79 05/15/17 19:10 99.0 109 19 192/138 (156) 97 05/15/17 19:10 Room Air 05/15/17 19:10 109 05/15/17 18:31 89 05/15/17 17:39 211/116 (147) 05/15/17 17:10 103 05/15/17 16:00 104 05/15/17 15:51 98 Room Air 05/15/17 15:51 98.7 99 18 214/138 (163) 98 05/15/17 15:51 105 05/15/17 14:25 110 05/15/17 13:05 96 05/15/17 12:07 88 I/O 12/20/17 1205/15/17 05/16/17 05/16/17 05/16/17 07:00 15:00 23:00 07:00 15:00 23:00 Intake Total 0 ml 300 ml 100 ml 0 ml Output Total 350 ml 200 ml 175 ml Balance -350 ml 300 ml -100 ml -175 ml Intake Oral 0 ml 0 ml IV Total 300 ml 100 ml Output Urine Total 350 ml 200 ml 175 ml Gastric Drainage Total 0 ml # Voids 1 1 # Bowel Movements 0 0 (Yasmine Chery MD R1) Result Diagram: 05/14/17 1333 05/16/17 0421 Imaging Last Impressions Chest X-Ray 05/14/17 0000 Signed Impressions: Service Date/Time: Sunday, May 14, 2017 12:56 - CONCLUSION: No acute disease. Dustin Paige Jr., MD Neck CTA 05/13/17 0000 Signed Impressions: Service Date/Time: Saturday, May 13, 2017 14:36 - CONCLUSION: 1. Patent carotid arteries bilaterally. 2. 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 3. A wet reading was supplied to Dr. Carrion. Dustin Paige Jr., MD Head CTA 05/13/17 0000 Signed Impressions: Service Date/Time: Saturday, May 13, 2017 14:36 - CONCLUSION: No filling defects to suggest embolus or thrombus. Calcified atherosclerotic plaque as detailed above. Dustin Paige Jr., MD Head CT 05/13/17 0000 Signed Impressions: Service Date/Time: Saturday, May 13, 2017 14:36 - CONCLUSION: Negative for acute hemorrhage. Moderate calcific vascular disease. CT is pending. Patrice Wilson MD FACR Carotid Artery Ultrasound 05/11/17 0000 Signed Impressions: Service Date/Time: Thursday, May 11, 2017 18:22 - CONCLUSION: 1. No hemodynamically significant stenosis in the carotid arteries. Moderate size visible plaque formation around the right carotid bifurcation. Mild plaque around the left carotid bifurcation. 2. Retrograde flow left vertebral artery which can indicate a proximal subclavian stenosis. Joseph Connors MD Objective Remarks GENERAL: Well-nourished, well-developed patient laying in bed, in no acute distress. SKIN: Warm and dry. Petechiae on right hand. Able to gabino. NECK: Supple, trachea midline. No JVD or lymphadenopathy. CARDIOVASCULAR: Normal rate, irregularly irregular rhythm without murmurs, gallops, or rubs. RESPIRATORY: Breath sounds equal bilaterally. No accessory muscle use. GASTROINTESTINAL: Abdomen soft, non-distended EXTREMITIES: No cyanosis, or edema. NEUROLOGICAL: Awake and alert. Global aphasia. Makes purposeful eye contact. Purposeful movement of LUE. Follows commands. Improved muscle tone with occasional twitching of RUE. Movement observed of LUE, LLE, and to lesser degree RLE. (Yasmine Chery MD R1) A/P Assessment and Plan Mrs. Pan is a 86 y/o F presenting with: Discharge Planning Patient seen and examined. Case reviewed and discussed with the resident team. Agree with plan of care as discussed with me and documented in the resident note. (Yasmine Chery MD R1) Attending Attestation Patient seen and examined. She is awake and alert. Expressive aphasia and RUE weakness still significant. Case reviewed and discussed with the resident team. Agree with plan of care as discussed with me and documented in the resident note. (Bashir Bingham MD) Problem List: (1) Altered mental status, unspecified ICD Codes: R41.82 - Altered mental status, unspecified Status: Acute Plan: Patient with episode of altered mental status and hypotension resolved without intervention. Patient with history of prior TIA. Imaging findings as noted above; briefly, no evidence on CT or CTA of head/neck of ischemia that would explain symptoms Differential: TIA/CVA versus somnolence from diastolic dysfunction versus medication side effect versus dehydration Troponin: 0.05, 0.05, 0.05 -> 0.04 EKG: AFib with normal rate Orthostatic vital signs: shows some orthostasis from sitting to standing Ammonia level 26 (normal) * Neurology consulted, appreciate recommendations: * Strongly suspecting large L hemisphere stroke * Patient was outside the 4.5 hour window for TPA * NPO * No anticoagulation except coumadin at this time given potential risk of hemorrhagic conversion * ST * Trend CMP * More awake today; NG tube placed on 05/15 for medication/food administration until able to swallow * PT/OT/ST and case management * Dietary consult for starting tube feeds (2) Elevated brain natriuretic peptide (BNP) level ICD Codes: R79.89 - Other specified abnormal findings of blood chemistry Status: Acute Plan: Patient with no reported history/sx of CHF No improvement in BNP after Lasix IV x1; likely improvement in mental status was due to time CXR without signs of fluid overload Possibly due to HFpEF Item Value Date Time B-Type Natriuretic Peptide 1112 PG/ML H 05/11/17 1410 B-Type Natriuretic Peptide 1435 PG/ML H 05/13/17 0442 B-Type Natriuretic Peptide 1195 PG/ML H 05/14/17 0401 B-Type Natriuretic Peptide 1447 PG/ML H 05/15/17 0344 B-Type Natriuretic Peptide 1600 PG/ML H 05/16/17 0421 Echocardiogram: normal LVEF, severe LVH worse at septum, moderate tricuspid regurgitation, mild aortic and mitral regurgitation * Trend BNP * Resume lisinopril * If neurological status allows, augment blood pressure treatment tomorrow AM with goal of slowly reducing BP * If patient mental status declines again, consider scheduled Lasix (3) HTN (hypertension) ICD Codes: I10 - Essential (primary) hypertension Status: Chronic Plan: Acute on chronic hypertension * Resume home lisinopril 5mg daily * Vasotec 1.25 mg IV Q6H PRN BP > 220/100 (4) Afib ICD Codes: I48.91 - Unspecified atrial fibrillation Status: Chronic Plan: Patient with history of atrial fibrillation Rate currently controlled i.e. < 100 * Resume home digoxin 0.125 mg, sotalol * Continue warfarin 2 mg daily * INR subtherapeutic to 1.9 will continue to monitor (5) Hypothyroidism ICD Codes: E03.9 - Hypothyroidism, unspecified Status: Chronic Plan: Patient with history of hypothyroidism * Continue Synthroid 100 g daily (6) HLD (hyperlipidemia) ICD Codes: E78.5 - Hyperlipidemia, unspecified Status: Chronic Plan: Patient with history of hyperlipidemia * Continue Zetia and simvastatin daily (7) No contraindication to deep vein thrombosis (DVT) prophylaxis ICD Codes: Z78.9 - Other specified health status Status: Acute Plan: -Continue warfarin for anticoagulation (8) Nutrition, metabolism, and development symptoms ICD Codes: R63.8 - Other symptoms and signs concerning food and fluid intake Status: Acute Plan: Fluids: Holding for now due to concern for fluid overload in setting of LVH with probable diastolic dysfunction Electrolytes:Monitor and replete PRN Nutrition: NPO DVT Prophylaxis: Coumadin 2 mg daily GI Prophylaxis: Protonix 40 mg IV daily (Yasmine Chery MD R1) Problem Qualifiers (1) Altered mental status, unspecified: Qualified Codes: R41.82 - Altered mental status, unspecified (2) Afib: Qualified Codes: I48.2 - Chronic atrial fibrillation Yasmine Chery MD R1 May 16, 2017 11:55 Bashir Bingham MD May 16, 2017 19:38
[2017-05-16] MEDS ORDERED: POTASSIUM CHLORIDE 25 MEQ EFFERVESCENT TAB PO ONE (12:00)
[2017-05-16] MEDS: ENALAPRILAT 1.25 MG/ML VIAL IV PUSH PRN (16:44)
[2017-05-16] MEDS ORDERED: WARFARIN SOD 2 MG TAB PO ONE (17:15)
--- NOTE | 2017-05-16 18:54 | DEATH SUM ---
Pronouncement Date Pronounced : May 16, 2017 Time Of : 18:20 Pronouncement Called to pronounce of patient. Identified patient as Libby Pan. Patient with no cardiac activity in 2 separate leads; no cardiac activity was palpated or auscultated. Patient with no spontaneous respirations, no corneal reflex or response to painful stimuli. Pupils fixed and dilated. pronounced at ~1820; based on telemetry review patient went to asystole at ~1806 after several minutes of ventricular tachycardia which was refractory to patient's defibrillator firing multiple times. Patient's daughter notified via phone shortly following ; she was already in route and I will meet her to discuss/console her and offer support services. Preliminary Cause of : Cardiac arrest Efraín Fountain MD, R3 May 16, 2017 18:54
[2017-05-17] MEDS ORDERED: WARFARIN SOD 3 MG TAB PO SCH (16:00)
--- NOTE | 2017-05-22 11:40 | HHI.DS ---
Summary Note Date of : May 16, 2017 Time Of : 1819 Admission Date May 13, 2017 at 11:38 am Admitting Diagnosis AMS, elevated BNP Diagnosis at Time of : (1) Cardiac arrest ICD Code: I46.9 - Cardiac arrest, cause unspecified Diagnosis: Principal (2) CVA (cerebral vascular accident) ICD Code: I63.9 - Cerebral infarction, unspecified Diagnosis: Principal (3) Afib ICD Code: I48.91 - Unspecified atrial fibrillation Diagnosis: Secondary (4) Encephalopathy acute ICD Code: G93.40 - Encephalopathy, unspecified Diagnosis: Secondary Brief History On admission Mrs. Pan is a 86 y/o F presenting to the ED after an episode of altered mental status. Patient is accompanied by her daughter who assisted in the history. Patient is a current resident at [facility]. Earlier today, the patient states that she became nauseous at lunch and had to sit down as she "just did not feel right." A nurse at the facility evaluated her and called an ambulance due to her change in mental status. Per EMS report, patient was hypotensive with a systolic blood pressure of 93. The patient cannot recall being initially evaluated by EMS as she states that she cannot remember anything from sitting down until being driven in the ambulance. Her blood pressure normalized per report without intervention. Upon initial evaluation in the emergency department she was only oriented to person stating the year was 1717, however upon my evaluation patient is oriented to place, person, and time. She states that she is "back to normal" and her daughter states that she cannot notice a difference from her baseline. She denies any neurologic symptoms including headache, vision changes, slurring speech, paralysis, or loss of sensation during this time. She currently has no complaints and denies any recent fevers, chills, shortness of breath, chest pain , or calf tenderness. On review of system patient states that she has been nauseous over the past 2 weeks which upon further investigation could be related to starting daily Macrobid for chronic UTI prophylaxis. Patient does also endorse a previous CVA without residual effects. Significant Findings Item Value Date Time White Blood Count 10.1 TH/MM3 05/14/17 1333 Hemoglobin 13.1 GM/DL 05/14/17 1333 Hematocrit 39.4 % 05/14/17 1333 Platelet Count 212 TH/MM3 05/14/17 1333 Sodium Level 144 MEQ/L 05/16/17 0421 Potassium Level 3.5 MEQ/L 05/16/17 0421 Chloride Level 109 MEQ/L H 05/16/17 0421 Carbon Dioxide Level 25.7 MEQ/L 05/16/17 0421 Blood Urea Nitrogen 24 MG/DL H 05/16/17 0421 Creatinine 0.69 MG/DL 05/16/171 Estimat Glomerular Filtration Rate 81 ML/MIN L 05/16/171 Random Glucose 118 MG/DL H 05/16/17 0421 Calcium Level 10.1 MG/DL 05/16/171 Imaging Last Impressions Chest X-Ray 05/14/17 0000 Signed Impressions: Service Date/Time: Sunday, May 14, 2017 12:56 - CONCLUSION: No acute disease. Dustin Paige Jr., MD Neck CTA 05/13/17 0000 Signed Impressions: Service Date/Time: Saturday, May 13, 2017 14:36 - CONCLUSION: 1. Patent carotid arteries bilaterally. 2. 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 3. A wet reading was supplied to Dr. Carrion. Dustin Paige Jr., MD Head CTA 05/13/17 0000 Signed Impressions: Service Date/Time: Saturday, May 13, 2017 14:36 - CONCLUSION: No filling defects to suggest embolus or thrombus. Calcified atherosclerotic plaque as detailed above. Dustin Paige Jr., MD Head CT 05/13/17 0000 Signed Impressions: Service Date/Time: Saturday, May 13, 2017 14:36 - CONCLUSION: Negative for acute hemorrhage. Moderate calcific vascular disease. CT is pending. Patrice Wilson MD FACR Carotid Artery Ultrasound 05/11/17 0000 Signed Impressions: Service Date/Time: Thursday, May 11, 2017 18:22 - CONCLUSION: 1. No hemodynamically significant stenosis in the carotid arteries. Moderate size visible plaque formation around the right carotid bifurcation. Mild plaque around the left carotid bifurcation. 2. Retrograde flow left vertebral artery which can indicate a proximal subclavian stenosis. Joseph Connors MD Hospital Course Initially placed in observation on 05/11 for an episode of altered mental status thought to be from TIA. Patient had returned to baseline level of functioning and was being prepared for discharge on 05/13. However, on morning of 05/13 her blood pressure was severely elevated. Her neurologic exam at that time was normal other than drifting back to sleep easily. She was transitioned to inpatient status for blood pressure reduction. In the afternoon of 05/13 the primary team was notified of depressed level of consciousness. On evaluation at that time patient could not be awoken and had flaccid paralysis of her RUE. Stroke alert was called and she was taken for stat neuroimaging per protocol. Neurology was consulted and felt she had an acute CVA despite negative neuroimaging, but she was outside the window for tPA. They recommended conservative care and continuation of the patient's warfarin. Over the next couple days, Mrs. Dumont improved neurologically becoming more responsive and regaining some muscle tone in her RUE. However, on the evening of 05/16 she developed asystole after several minutes of ventricular tachycardia which was refractory to her defibrillator firing. At that time based on her wishes a code was not called. Exam was performed and was pronounced as documented elsewhere in the chart. Eder Holman MD May 22, 2017 11:40 am
== END 2017-05-16 18:20 | disposition expired | DRG 65 ==
LOC: NEPC 13:48 → NEDA 16:58 → NEPHCDU 18:17 → OBSVTOIN 05-13 11:38 → HCVI 05-13 12:45 → HCPC 05-15 07:49
PROVIDERS: ADMIT Family Medicine; ATTEND Family Medicine
DX: I63.512 Cerebral infarction due to unspecified occlusion or stenosis of left middle cerebral artery (principal); I47.2 Ventricular tachycardia; G81.91 Hemiplegia, unspecified affecting right dominant side; E87.1 Hypo-osmolality and hyponatremia; E83.52 Hypercalcemia; I08.3 Combined rheumatic disorders of mitral, aortic and tricuspid valves; I48.2 Chronic atrial fibrillation; I10 Essential (primary) hypertension; R47.01 Aphasia; I46.9 Cardiac arrest, cause unspecified; E03.9 Hypothyroidism, unspecified; E78.5 Hyperlipidemia, unspecified; H91.90 Unspecified hearing loss, unspecified ear; I73.9 Peripheral vascular disease, unspecified; Z66 Do not resuscitate; Z79.01 Long term (current) use of anticoagulants; Z86.73 Personal history of transient ischemic attack (TIA), and cerebral infarction without residual deficits; Z95.810 Presence of automatic (implantable) cardiac defibrillator
CPT/HCPCS: 70450; 70496; 70498; 71010; 80048; 80053; 80061; 80162; 81001; 82140; 82435; 82550; 82565; 82947; 82948; 83036; 83735; 83880; 84132; 84295; 84484; 84520; 85025; 85384; 85610; 85730; 86850; 86900; 86901; 93005; 93306; 93880; 94150; G0378; G8987-GO; G8987-GP; G8988-GO; G8988-GP; G8996-GN; G8997-GN; G8998-GN; J1940; J3480; J7030; P9612; Q9967